=== PATIENT | male | born 1965 | race Caucasian/White ===

== ENCOUNTER 2016-07-16 09:05 | Emergency (ER) | payer OTHER ==
[~2016-07-16] VITALS: Ht 182.9 cm; Wt 103.6 kg
[~2016-07-16 09:05] MED LIST: CLX/20 PO; IBUP-1451 PO; OXYC1TAB3 PO
[2016-07-16 09:13] VITALS: TEMP 36.8; Ht 182.9 cm; Wt 103.6 kg
[2016-07-16] MEDS ORDERED: XYLOCAINE 1%/SOD BICARB 20 ML VIAL INFIL ONE (09:30)
[2016-07-16] MEDS ORDERED: BUPIVACAINE 0.5 % 5 MG/1 ML MPF 30ML VIAL INFIL ONE (09:30)
[2016-07-16] MEDS ORDERED: DIPHTHERIA/TETANUS/PERTUSSIS 0.5 ML SYR/VIAL IM. ONE (09:30)
--- NOTE | 2016-07-16 09:58 | DIAGNOSTIC IMAGING REPORT ---
LEFT FINGER(S) MIN 2 VIEWS ROUTINE CLINICAL HISTORY: left third finger injury, laceration trauma. Pain. COMPARISON: None. DISCUSSION: Soft tissue laceration adjacent to the distal phalanx. No evidence for bony involvement. Study specifically negative for fracture or dislocation. IMPRESSION: Soft tissue laceration adjacent to the distal phalanx left third finger. No acute bony abnormality. Electronically signed by: Crescencio Humphrey M.D. 07/16/2016 9:56 AM
--- NOTE | 2016-07-16 11:35 | EMERGENCY ROOM VISIT NOTE ---
ED Visit Note First contact with patient: 09:20 CHIEF COMPLAINT: Finger laceration HISTORY OF PRESENT ILLNESS: This 50-year-old male patient presents to the emergency department ambulatory after cutting the left third finger approximately 12 hours ago. The patient reports that he tripped over his dog and fell last night, striking the finger on a kerosene heater. The bleeding has not stopped. Denies weakness or numbness of the finger. He does report he cleaned the laceration with peroxide. The patient rates the pain as sharp and 8 /10. The patient denies any other injuries. The patient's Tetanus shot is not up to date. REVIEW OF SYSTEMS: A 6 system review of systems was completed with positives and pertinent negatives listed in the HPI. ALLERGIES: No known drug allergies MEDICATIONS: No chronic medications PMH: No significant past medical history. SOCIAL HISTORY: The patient lives locally with family. Nonsmoker. PHYSICAL EXAM: Vital Signs: Reviewed Nurse's notes, vital signs stable. GENERAL : This is a 50-year-old male, in no acute distress, well-developed, well- nourished. SKIN: There is a 3.5 cm long flap-like laceration on the medial aspect of the distal left third finger. The edges gape apart with traction. There is no foreign material in the wound and it looks clean. There is minimal bleeding. No deep structures such as tendons, bones, or significant blood vessels are seen in the base of the wound. Normal strength and movement of the finger. Capillary refill less than 2 seconds. Normal sensation to light and sharp touch. RADIOGRAPHIC FINDINGS: LEFT FINGER(S) MIN 2 VIEWS ROUTINE CLINICAL HISTORY: left third finger injury, laceration trauma. Pain. COMPARISON: None. DISCUSSION: Soft tissue laceration adjacent to the distal phalanx. No evidence for bony involvement. Study specifically negative for fracture or dislocation. IMPRESSION: Soft tissue laceration adjacent to the distal phalanx left third finger. No acute bony abnormality. EMERGENCY DEPARTMENT COURSE: I examined the patient. X-rays of finger was obtained and was unremarkable. Verbal consent was obtained to perform the procedure. Using sterile technique the wound was cleansed with Betadine. The area was sterilely draped. 7 ml of a 2-1 solution of 1% buffered lidocaine and 0.5% bupivacaine was used to anesthetize the laceration on the finger. Once the patient was anesthetized, the wound was copiously irrigated under pressure with sterile saline. The wound was explored and was as described above. The laceration was repaired using 11 simple interrupted 4-0 nylon sutures with the wound edges being well approximated. The patient tolerated the procedure well. Hemostasis was achieved. The area was cleaned with sterile saline and dressed with bacitracin ointment and bandage. The patient was given Td immunization. The patient will be placed on Keflex due to the delay in closure. He was given information for a hand surgeon to follow up with if he has any issues with healing. The patient was discharged home in good condition. DIAGNOSIS: Finger laceration Problem List Medical Problems: (1) SEBACEOUS CYST Status: Resolved Current/Historical Medications Scheduled Cephalexin Monohydrate (Keflex), 500 MG PO QID Allergies Coded Allergies: No Known Allergies (Unverified , 07/16/16) Vital Signs Date Time Temp Pulse Resp B/P Pulse Ox O2 Delivery O2 Flow Rate FiO2 07/16/16 11:51 77 17 135/65 95 07/16/16 10:39 90 17 148/103 94 Room Air 07/16/16 09:13 36.8 90 18 158/99 97 Room Air Medications Administered Medications (Trade) Dose Ordered Sig/Tristan Route Start Time Stop Time Status Last Admin Dose Admin Diphtheria/ Pertussis/Tetanus Vacc (Adacel Inj) 0.5 ml ONCE ONCE IM. 07/16/16 09:30 07/16/16 09:31 DC 07/16/16 10:41 0.5 ML Departure Information Impression Primary Impression: Finger laceration Dispostion Home / Self-Care Condition GOOD Prescriptions Cephalexin Monohydrate (Keflex) 500 Mg Cap 500 MG PO QID for 10 Days, #40 CAP Prov: Erica Torres ., TIFFANY 07/16/16 Referrals No Doctor, Assigned (PCP) Remberto Casanova MD Patient Instructions A Signature Page, [employer] Additional Instructions You have received 11 sutures on your finger. These sutures are NOT dissolvable and WILL need to be removed by a health care provider in 12-14 days. You can return to the Emergency Department or contact your Primary Care Provider to have the sutures removed. You were prescribed Keflex to be taken as prescribed. This is an antibiotic. All antibiotics have the potential to cause diarrhea. Stop this medication and contact a medical provider if you were to develop any significant adverse side effects including: wheezing, shortness of breath, passing out, vomiting, or a diffuse rash. Always take antibiotics as directed and COMPLETE the ENTIRE course regardless of the improvement of your symptoms. Proper wound care is essential for adequate wound healing and infection prevention. You can shower and clean the wound with soap and water. Do not scour over the wound, pat dry with a towel. Do not submerse the wound (i.e. bathe or dish wash) until the sutures have been removed. You can use an antibiotic ointment with a dressing over the wound for the next 3-4 days. After this time you may leave the wound dry and open to the air. If crust develops over the wound you can use a Q-tip to apply a 1:1 peroxide:water solution to clean the wound. Look for signs of infection of the wound including: increased pain, swelling, foul discharge, streaking, or increased temperature. If any of these are noticed you should return to the Emergency Department for further assessment and treatment. As with any laceration you may have received nerve damage to the surrounding tissues. This damage may or may not be permanent. You should keep the area covered with sunscreen for the first 6 months to 1 year when at risk for exposure to help minimize scarring. You can also use scar reducing creams or Vitamin E oil to help minimize scarring. For pain control, you can use the following [id number] medicines (if >12 yo): - Regular strength (325mg/tab) Tylenol (acetaminophen) 2 tabs every 4-6 hours as needed. Do not exceed 12 tablets in a 24 hour period. Avoid taking more than 4 grams (4000 mg) of Tylenol per day. This includes any other sources of acetaminophen you may take on a regular basis. - Regular strength (200 mg/tab) Advil (ibuprofen) 1-2 tabs every 4-6 hours as needed. Do not exceed a dose of 3200 mg per day. Follow-up with orthopedics if you have any numbness in her finger, weakness in the finger, or issues with healing. Return to the emergency department if your symptoms worsen despite treatment course outlined above.
[2016-07-16] MEDS ORDERED: CEPH500C PO (11:38)
[2016-07-16 11:51] VITALS: BP 135/65; PULSE 77; O2SAT 95
== END 2016-07-16 11:51 | disposition home or self-care (01) ==
LOC: C.EDB 09:07
DX: S61.213A Laceration without foreign body of left middle finger without damage to nail, initial encounter (principal); W01.0XXA Fall on same level from slipping, tripping and stumbling without subsequent striking against object, initial encounter; Z23 Encounter for immunization

== ENCOUNTER 2016-10-02 12:53 | Emergency (ER) | payer OTHER ==
[~2016-10-02] VITALS: Ht 182.9 cm; Wt 102.7 kg
[2016-10-02 12:59] VITALS: TEMP 36.5; Ht 182.9 cm; Wt 102.7 kg
[2016-10-02 13:03] VITALS: O2SAT 98
[2016-10-02] MEDS ORDERED: ASPIRIN 81 MG CHEW PO STA (13:28)
[2016-10-02] MEDS ORDERED: SODIUM CHLORIDE 0.9% 1000ML 1,000 ML IV STA (13:28)
[2016-10-02] MEDS ORDERED: NITROGLYCERIN 0.4 MG SL PER TAB CHARGE SL PRN (13:30)
[2016-10-02 13:45] LABS: BASO % 0.4 %; BASO ABS # 0.04 K/uL (0-0.2); COMPLETE YES; EOS % 0.6 %; IG% 0.2 %; LYMPH % 26.2 %; LYMPH ABS # 2.84 K/uL (1.2-3.4); MEAN CORPUSCULAR HEMOGLOBIN 30.4 pg (25-34); MEAN CORPUSCULAR HGB CONC 36.2 g/dl (32-36); MEAN PLATELET VOLUME 11.6 fL (7.4-10.4); MONO % 5.8 %; NEUT % 66.8 %; PLATELET COUNT 166 K/uL (130-400); WHITE BLOOD COUNT 10.84 K/uL (4.8-10.8)
[2016-10-02 13:53] LABS: BUN/CREATININE RATIO 20.9 (10-20); CALCIUM 8.6 mg/dl (8.5-10.1); CREATININE 0.85 mg/dl (0.60-1.40); POTASSIUM 3.7 mmol/L (3.5-5.1)
[2016-10-02 13:58] LABS: CKMB/CK RATIO 1.2 (0-3.0)
--- NOTE | 2016-10-02 14:25 | DIAGNOSTIC IMAGING REPORT ---
CHEST ONE VIEW PORTABLE HISTORY: Atypical CHEST PAIN COMPARISON: Chest 02/29/2016. FINDINGS: The heart is normal in size. The right lung is clear. No pleural effusions. No pneumothorax. Questionable 1.9 cm nodular density within the left midlung zone. IMPRESSION: Questionable 1.9 cm nodular density within the left midlung zone is likely due to the overlapping ribs. However, repeat PA and lateral views of the chest with oblique views is recommended for confirmation. Electronically signed by: Adam Gracia M.D. 10/02/2016 2:24 PM Dictated Date/Time: 10/02/2016 2:21 PM
[2016-10-02] MEDS ORDERED: OPTIRAY 320 IV PRN (14:45)
--- NOTE | 2016-10-02 15:06 | DIAGNOSTIC IMAGING REPORT ---
CT ANGIOGRAM OF THE CHEST CLINICAL HISTORY: Atypical chest pain. COMPARISON STUDY: Chest x-ray dated 10/02/2016. TECHNIQUE: Following the IV administration of 94 cc of Optiray 320, CT angiogram of the chest was performed from the upper abdomen to the thoracic inlet utilizing the pulmonary embolus protocol. Images are reviewed in the axial, sagittal, and coronal planes. 3-D MIPS images are created and assessed. IV contrast was administered without complication. CT DOSE: 490.37 mGy.cm FINDINGS: Thyroid: Imaged portions of the thyroid gland are normal in size and attenuation. Thoracic aorta: The thoracic aorta is normal in caliber and demonstrates bovine variant arch anatomy. No dissection is seen. Pulmonary vasculature: The pulmonary trunk is normal in caliber. There are no filling defects identified in main, lobar, or segmental pulmonary branches to suggest pulmonary embolus. Heart: The heart is normal in size and configuration, and without pericardial effusion. Lungs and pleural spaces: The lungs and pleural spaces are clear. The trachea and central airways are patent. No concerning pulmonary lesion is identified. Mediastinum: There is no mediastinal lymphadenopathy. Jacque: Clear. Axillae: There is no axillary lymphadenopathy. Upper abdomen: The liver is enlarged and steatotic. Partially visualized upper abdominal viscera is otherwise within normal limits. Skeletal structures: No lytic or blastic bony lesions are seen. IMPRESSION: 1. There is no evidence of pulmonary embolus in the main, lobar, or segmental pulmonary arteries. 2. The lungs are clear. 3. There is no left upper lobe pulmonary lesion identified as questioned by chest x-ray. The x-ray finding was likely artifactual. 4. Hepatic steatosis. Electronically signed by: Alphonso Watson M.D. 10/02/2016 3:04 PM Dictated Date/Time: 10/02/2016 2:57 PM
[2016-10-02 16:43] VITALS: BP 139/85; PULSE 71; O2SAT 97
--- NOTE | 2016-10-02 23:17 | EMERGENCY ROOM VISIT NOTE ---
ED Visit Note First contact with patient: 13:13 Chief Complaint: Chest pain. History of Present Illness: Mr. Kong is a 51 year-old white male who ambulates into the ED accompanied by female friend complaining of chest discomfort. Historically patient reports she has no history of coronary artery disease, no personal history of risk factors but does report his father had coronary artery disease and a stent place and at the age of 60. Additionally in reviewing his medical records he was found to be admitted to the hospital approximately 2 years ago for chest pain rule out [place]. He did follow-up and had a stress echocardiogram which she reports is normal. Patient reports a acute onset of pain discomfort that has been intermittent for the last 3 days. He describes his discomfort as a midsternal throbbing and achy sensations. He rates this discomfort a 4/10; he does currently report he is chest discomfort free. He has not identified any aggravating or alleviating factors related to this discomfort. He has not taken any medication for this discomfort prior to arrival at the hospital. He denies true radiation of pain but does report he has a numbness sensation along the left mandible, the proximal left arm and into the thoracic back behind the left scapula; he does currently report he has that numbness sensation in his neck, arm and subscapular area. Associated with his discomfort he reports intermittently he is short of breath and nauseated but has not vomited and he describes a "woosing " sensation that moves towards him. Patient denies fevers, sweats, skin eruptions, skin color changes, upper respiratory tract symptoms, wheezing, cough, orthopnea, dependent edema, previous clots, claudication, cramping, recent surgery/inactivity/extended travel, abdominal pain, nausea, vomiting, diarrhea, constipation, rectal bleeding, black/tarry stools, urinary symptoms, back/flank pain. Review of Systems: As noted above in history of present illness. All body systems were reviewed and found to be negative as noted above. Past Medical History: Kidney stones. Current Medications: Patient denies. Allergies to Medications: Patient denies. Social History: Patient is currently employed; he feels safe in his home environment; he admits to tobacco and alcohol use. Physical Examination: Vital Signs: Date Time Temp Pulse Resp B/P Pulse Ox O2 Delivery O2 Flow Rate FiO2 10/02/16 16:43 71 18 139/85 97 10/02/16 14:40 83 16 125/77 98 Room Air 10/02/16 13:44 72 16 136/89 97 10/02/16 13:05 90 10/02/16 13:03 98 Room Air 10/02/16 13:03 98 Room Air 10/02/16 12:59 36.5 92 18 165/99 98 Room Air GENERAL: 51-year-old male in mild distress due to symptoms, nontoxic-appearing, afebrile and hemodynamically stable. NEUROLOGICAL: Awake, alert and oriented to person, place and time. Answering questions appropriately and following commands. Normal gait. Good hand eye coordination. SKIN: Warm, dry and pink. No soft tissue eruptions or trauma noted. HEENT: Atraumatic and normocephalic. PERRLA. Sclera white and conjunctiva pink. Oral cavity moist and pink. Pharynx is nonerythematous or edematous. Speech normal. No lymphadenopathy. Trachea midline. No jugular venous distention. No carotid bruits. BACK: No tenderness over the bony spine. No CVA tenderness. THORAX: Lungs sounds are clear to auscultation and equal bilaterally with symmetrical chest wall. No wheezing, rales or rhonchi. No crepitus, tenderness , subcutaneous air or deformities noted. HEART: Regular rate and rhythm. No gallops, rubs or murmurs are appreciated. No lifts, heaves or thrills. PMI is not displaced. ABDOMEN: Flat, soft and nontender. Positive bowel sounds in all quadrants. No guarding, rigidity or organomegaly. EXTREMITIES: Moves all extremities well on command and with purpose. All distal neurovascular statuses are intact and equal bilaterally. No dependent edema or calf tenderness/cords. ED Course: Patient is assessed as noted above. Laboratory Testing: Test 10/02/16 13:15 10/02/16 13:48 10/02/16 16:00 Range/Units White Blood Count 10.84 4.8-10.8 K/uL Red Blood Count 5.00 4.7-6.1 M/uL Hemoglobin 15.2 14.0-18.0 g/dL Hematocrit 42.0 42-52 % Mean Corpuscular Volume 84.0 80-100 fL Mean Corpuscular Hemoglobin 30.4 25-34 pg Mean Corpuscular Hemoglobin Concent 36.2 32-36 g/dl Platelet Count 166 130-400 K/uL Mean Platelet Volume 11.6 7.4-10.4 fL Neutrophils (%) (Auto) 66.8 % Lymphocytes (%) (Auto) 26.2 % Monocytes (%) (Auto) 5.8 % Eosinophils (%) (Auto) 0.6 % Basophils (%) (Auto) 0.4 % Neutrophils # (Auto) 7.25 1.4-6.5 K/uL Lymphocytes # (Auto) 2.84 1.2-3.4 K/uL Monocytes # (Auto) 0.63 0.11-0.59 K/uL Eosinophils # (Auto) 0.06 0-0.5 K/uL Basophils # (Auto) 0.04 0-0.2 K/uL RDW Standard Deviation 39.4 36.4-46.3 fL RDW Coefficient of Variation 12.9 11.5-14.5 % Immature Granulocyte % (Auto) 0.2 % Immature Granulocyte # (Auto) 0.02 0.00-0.02 K/uL Sodium Level 141 136-145 mmol/L Potassium Level 3.7 3.5-5.1 mmol/L Chloride Level 108 98-107 mmol/L Carbon Dioxide Level 25 21-32 mmol/L Anion Gap 8.0 3-11 mmol/L Blood Urea Nitrogen 18 7-18 mg/dl Creatinine 0.85 0.60-1.40 mg/dl Est Creatinine Clear Calc Drug Dose 130.3 ml/min Estimated GFR () 118.6 Estimated GFR (Non- 102.3 BUN/Creatinine Ratio 20.9 10-20 Random Glucose 93 70-99 mg/dl Calcium Level 8.6 8.5-10.1 mg/dl Total Bilirubin 0.5 0.2-1 mg/dl Direct Bilirubin 0.1 0-0.2 mg/dl Aspartate Amino Transf (AST/SGOT) 22 15-37 U/L Alanine Aminotransferase (ALT/SGPT) 45 12-78 U/L Alkaline Phosphatase 74 45-117 U/L Total Creatine Kinase 355 39-308 U/L Creatine Kinase MB 4.3 0.5-3.6 ng/ml Creatine Kinase MB Ratio 1.2 0-3.0 Total Protein 7.6 6.4-8.2 gm/dl Albumin 3.9 3.4-5.0 gm/dl Lipase 115 73-393 U/L Bedside Troponin I 0.000 0.000 0-0.045 ng/ml Chest X-Rays: Were read by myself and the radiologist showing no acute infiltrates, effusions or pneumothorax. Normal heart silhouette and bony anatomy. Radiologist does note a questionable 1.9 cm nodule density within the left mid lung zone of questionable etiology. CTA Chest: Was reviewed by myself and read by the radiologist showing no evidence of light, clear lungs, the nodular density that was question in the chest x-ray was not present, the thoracic aorta was normal-appearing and demonstrates no dissection but did have a bovine variant arch anatomy. EK: Was read by myself and reviewed with Dr. Dai; shows normal sinus rhythm with ventricular rate of 92 bpm. Normal axis, intervals and complexes. No acute ST changes indicating ischemia, injury or infarction. This was compared to previous from 02/29/2016 in no acute changes were noted. 1550: Was read by myself and reviewed with Dr. Dai; shows normal sinus rhythm with ventricular rate of 70 bpm. Normal axis, intervals and complexes. No acute ST changes indicating ischemia, injury or infarction. This was compared to EKG from earlier today in no acute changes were noted. Patient was hydrated with normal saline and given 324 mg of aspirin by mouth and a 0.4 mg sublingual nitroglycerin trial; he reports these medications made him feel more relaxed but did not take away any of his discomforts. Patient was reassessed multiple times during his stay in the emergency department. Patient's case was reviewed with Dr. Dai; we agreed on diagnostic approach, treatment, disposition and plan. Patient's case was consulted with Dr. Hayes, [facility] cardiology; he recommended office follow-up and did not feel the patient needed to be brought into the hospital for observation/admission. Patient was educated about tonight's findings and instructed on his treatment plan; he verbalizes understanding and agreement with this plan. Clinical Impression: Noncardiac chest discomfort. Decision-Making: Initially my differential diagnosis I considered acute coronary syndrome, angina, hypertensive crisis, palpitations, pneumothorax, pneumonia, pulmonary embolism, and other causes. Disposition: Patient discharged home in stable condition; prior to departure he was reassessed and subjectively reported he was feeling better and was still experiencing the whooshing sensation. Plan: Patient was encouraged to continue his current medications. Patient was encouraged to use 81 mg of aspirin per day until followed up with cardiology. Patient was encouraged to follow-up with his primary care provider and [facility] cardiology. Patient was encouraged to return ED for worsening chest discomfort or any new/ concerning symptoms.
== END 2016-10-02 16:44 | disposition home or self-care (01) ==
LOC: C.EDB 12:54 → C.EDC 16:44
DX: R07.9 Chest pain, unspecified (principal); F17.200 Nicotine dependence, unspecified, uncomplicated; Z87.442 Personal history of urinary calculi

== ENCOUNTER 2018-03-05 23:35 | Emergency (ER) | payer OTHER ==
[~2018-03-05] VITALS: Ht 182.9 cm; Wt 90.0 kg
[~2018-03-05 23:35] MED LIST changes: -CLX/20 PO; +CPR500 PO; -IBUP-1451 PO; +LCTX PO; -OXYC1TAB3 PO
[2018-03-05 23:38] VITALS: Ht 182.9 cm; Wt 90.0 kg
[2018-03-05] MEDS ORDERED: SODIUM CHLORIDE 0.9% 1000ML 1,000 ML IV ONE (23:47)
--- NOTE | 2018-03-05 23:52 | EMERGENCY ROOM VISIT NOTE ---
History Report prepared by Natayl: Gene Bueno Under the Supervision of: Dr. Ben Mejia M.D. First contact with patient: 23:44 Chief Complaint: FEVER Stated Complaint: HIGH FEVER, History of Present Illness The patient is a 52 year old male who presents to the Emergency Room with complaints of an intermittent fever beginning yesterday. The patient states he had a Whipple surgery at [facility] on the 16 of February, and his surgery was 6 hours in length. He reports he developed chills and severe shivers three days ago. The patient notes he shakes too much to take his medication. He states it has happened daily since, and it resolves on its own. The patient report he had a low grade fever yesterday and had a negative urine culture from Dr. Chauhan's office. He notes his fever lizzeth to 104.3 today. The patient states he takes oxycodone and Tylenol every morning for pain. He notes he also had abdominal discomfort. Source of History: patient Onset: yesterday Symptom Intensity: 104.3 Quality: other (fever) Timing: intermittent Modifying Factors (Relieving): tylenol Associated Symptoms: + chills (and shivers), + abdominal pain Review of Systems See HPI for pertinent positives & negatives. A total of 10 systems reviewed and were otherwise negative. Past Medical & Surgical Surgical Problems: (1) History of pancreatectomy Family History Cancer Heart disease Social History Smoking Status: Current Every Day Smoker Alcohol Use: other Drug Use: none Marital Status: Housing Status: lives with family Occupation Status: employed Current/Historical Medications Scheduled Docusate Sodium (Colace), 100 MG PO BID Enoxaparin (Lovenox), Unknown Dose SQ QPM Scheduled PRN Ondansetron Hcl (Zofran), 8 MG PO Q8 PRN for Nausea Oxycodone Ir (Roxicodone Ir), 5 MG PO Q6H PRN for Pain Simethicone (Simethicone), 180 MG PO TID PRN for GI Upset Miscellaneous Medications [Note: ] Allergies Coded Allergies: No Known Allergies (Unverified , 01/21/18) Physical Exam Vital Signs Date Time Temp Pulse Resp B/P (MAP) Pulse Ox O2 Delivery O2 Flow Rate FiO2 03/06/18 04:53 68 16 101/63 96 03/06/18 04:25 70 14 99/63 98 03/06/18 04:15 70 14 86/56 95 Room Air 03/06/18 03:45 78 16 106/65 98 Room Air 03/06/18 03:15 36.7 03/06/18 03:10 78 18 109/66 96 Room Air 03/06/18 02:31 97 16 105/62 98 Room Air 03/06/18 01:21 79 18 107/62 99 Room Air 03/06/18 00:56 37.1 86 16 122/63 97 Room Air 03/06/18 00:10 101/65 03/06/18 00:06 98 Room Air 03/05/18 23:38 37.8 118 22 109/66 96 Room Air Physical Exam GENERAL: Awake, alert, well-appearing, in no acute distress. Diaphoretic on examination. HENT: Normocephalic, atraumatic. Oropharynx unremarkable. EYES: Normal conjunctiva. Sclera non-icteric. NECK: Supple. No nuchal rigidity. FROM. No JVD. RESPIRATORY: Clear to auscultation. CARDIAC: Regular rate, normal rhythm. Extremities warm and well perfused. Pulses equal. ABDOMEN: Soft, non-distended. Tenderness to palpation. No rebound or guarding. No masses. Surgical scar down the abdomen. No evidence of infection. RECTAL: Deferred. MUSCULOSKELETAL: Chest examination reveals no tenderness. The back is symmetrical on inspection without obvious abnormality. There is no CVA tenderness to palpation. No joint edema. LOWER EXTREMITIES: Calves are equal size bilaterally and non-tender. No edema. No discoloration. NEURO: Normal sensorium. No sensory or motor deficits noted. SKIN: No rash or jaundice noted. Medical Decision & Procedures ER Provider Diagnostic Interpretation: X-ray results as stated below per interpretation by [facility] One view of chest: No pneumonia, pneumothorax, or congestion. Radiology results as stated below per my review and [facility] radiologist interpretation: CT ABDOMEN & PELVIS With Contrast: History of recent Whipple procedure. Status post Whipple procedure. Fat stranding and edema surrounding the pancreas and gallbladder fossa and distal stomach is within normal limits for postoperative changes. Small amount of fluid and extraluminal foci of gas at the pancreaticojejunostomy could indicate anastomotic leak (image 33). Small fluid collection in the lesser sac measuring 6.4 x 3.2 cm could represent postoperative seroma/hematoma or pseudocyst. Abscess cannot be excluded. No bowel obstruction. Recommend surgical consultation. Improved biliary dilatation. Wall thickening of the choledochojejunostomy likely indicates normal postoperative changes. Tiny hypodensity in the left hepatic lobe (image 15) is stable and nonspecific. Right nephrolithiasis. No hydronephrosis. Radiologist: Chayo Palencia MD Study ready at 01:42 and initial results transmitted at 02:19 Laboratory Results 03/06/18 00:04 Red Blood Count 3.71, Mean Corpuscular Volume 82.5, Mean Corpuscular Hemoglobin 28.3, Mean Corpuscular Hemoglobin Concent 34.3, Mean Platelet Volume 10.0, Neutrophils (%) (Auto) 84.3, Lymphocytes (%) (Auto) 6.8, Monocytes (%) (Auto) 8.3, Eosinophils (%) (Auto) 0.1, Basophils (%) (Auto) 0.2, Neutrophils # (Auto) 11.22, Lymphocytes # (Auto) 0.90, Monocytes # (Auto) 1.11, Eosinophils # (Auto) 0.01, Basophils # (Auto) 0.03 03/06/18 00:04 Test 03/06/18 00:04 03/06/18 01:10 03/06/18 03:40 White Blood Count 13.31 K/uL (4.8-10.8) Red Blood Count 3.71 M/uL (4.7-6.1) Hemoglobin 10.5 g/dL (14.0-18.0) Hematocrit 30.6 % (42-52) Mean Corpuscular Volume 82.5 fL (80-100) Mean Corpuscular Hemoglobin 28.3 pg (25-34) Mean Corpuscular Hemoglobin Concent 34.3 g/dl (32-36) Platelet Count 199 K/uL (130-400) Mean Platelet Volume 10.0 fL (7.4-10.4) Neutrophils (%) (Auto) 84.3 % Lymphocytes (%) (Auto) 6.8 % Monocytes (%) (Auto) 8.3 % Eosinophils (%) (Auto) 0.1 % Basophils (%) (Auto) 0.2 % Neutrophils # (Auto) 11.22 K/uL (1.4-6.5) Lymphocytes # (Auto) 0.90 K/uL (1.2-3.4) Monocytes # (Auto) 1.11 K/uL (0.11-0.59) Eosinophils # (Auto) 0.01 K/uL (0-0.5) Basophils # (Auto) 0.03 K/uL (0-0.2) RDW Standard Deviation 42.5 fL (36.4-46.3) RDW Coefficient of Variation 13.9 % (11.5-14.5) Immature Granulocyte % (Auto) 0.3 % Immature Granulocyte # (Auto) 0.04 K/uL (0.00-0.02) Red Blood Cell Morphology Unremarkable Prothrombin Time 11.4 SECONDS (9.0-12.0) Prothromb Time International Ratio 1.1 (0.9-1.1) Activated Partial Thromboplast Time 26.7 SECONDS (21.0-31.0) Partial Thromboplastin Ratio 1.0 Anion Gap 11.0 mmol/L (3-11) Est Creatinine Clear Calc Drug Dose 127.7 ml/min Estimated GFR () 123.3 Estimated GFR (Non- 106.4 BUN/Creatinine Ratio 15.5 (10-20) Calcium Level 8.1 mg/dl (8.5-10.1) Total Bilirubin 0.4 mg/dl (0.2-1) Aspartate Amino Transf (AST/SGOT) 26 U/L (15-37) Alanine Aminotransferase (ALT/SGPT) 35 U/L (12-78) Alkaline Phosphatase 101 U/L (45-117) Total Creatine Kinase 42 U/L (39-308) Creatine Kinase MB < 1.0 ng/ml (0.5-3.6) Creatine Kinase MB Ratio (0-3.0) Troponin I < 0.015 ng/ml (0-0.045) Total Protein 6.6 gm/dl (6.4-8.2) Albumin 2.6 gm/dl (3.4-5.0) Globulin 4.0 gm/dl (2.5-4.0) Albumin/Globulin Ratio 0.7 (0.9-2) Urine Color COLORLESS Urine Appearance CLEAR (CLEAR) Urine pH 7.0 (4.5-7.5) Urine Specific [place] <= 1.005 (1.000-1.030) Urine Protein NEG (NEG) Urine Glucose (UA) NEG (NEG) Urine Ketones NEG (NEG) Urine Occult Blood NEG (NEG) Urine Nitrite NEG (NEG) Urine Bilirubin NEG (NEG) Urine Urobilinogen NEG (NEG) Urine Leukocyte Esterase NEG (NEG) Bedside Lactic Acid Venous 0.48 mmol/L (0.90-1.70) Labs reviewed by ED physician. Medications Administered Medications (Trade) Dose Ordered Sig/Tristan Route Start Time Stop Time Status Last Admin Dose Admin Sodium Chloride 1,000 ml @ 999 mls/hr Q1H1M ONCE IV 03/05/18 23:47 03/06/18 00:47 DC 03/05/18 23:47 999 MLS/HR Hydromorphone HCl (Dilaudid Inj) 1 mg NOW STAT IV 03/06/18 00:32 03/06/18 00:36 DC 03/06/18 00:49 1 MG Ondansetron HCl (Zofran Inj) 4 mg NOW STAT IV 03/06/18 00:32 03/06/18 00:36 DC 03/06/18 00:50 4 MG Acetaminophen (Tylenol Tab) 1,000 mg NOW STAT PO 03/06/18 00:32 03/06/18 00:36 DC 03/06/18 00:32 1,000 MG Sodium Chloride 1,000 ml @ 999 mls/hr Q1H1M STAT IV 03/06/18 00:32 03/06/18 01:32 DC 03/06/18 00:49 999 MLS/HR Piperacillin Sod/ Tazobactam Sod (Zosyn Iv) 4.5 gm NOW STAT IV 03/06/18 00:32 03/06/18 00:37 DC 03/06/18 00:50 4.5 GM Levofloxacin (Levaquin / D5W) 750 mg NOW ONCE IV 03/06/18 00:45 03/06/18 00:46 DC 03/06/18 00:49 750 MG Sodium Chloride 250 ml @ 999 mls/hr Q16M STAT IV 03/06/18 00:49 03/06/18 01:04 DC 03/06/18 00:49 999 MLS/HR Sodium Chloride 500 ml @ 999 mls/hr Q31M STAT IV 03/06/18 00:49 03/06/18 01:19 DC 03/06/18 00:49 999 MLS/HR Vancomycin HCl (Vancomycin 1gm Ed/Asu Omnicell) 1 gm STK-MED ONCE .ROUTE 03/06/18 01:15 03/06/18 01:16 DC 03/06/18 01:19 1 GM Potassium Chloride (Klor-Con M10) 40 meq STK-MED ONCE .ROUTE 03/06/18 01:17 03/06/18 01:18 DC 03/06/18 01:18 40 MEQ Potassium Chloride (Klor-Con M10) 40 meq NOW STAT PO 03/06/18 01:52 03/06/18 01:53 DC 03/06/18 01:52 40 MEQ Sodium Chloride 1,000 ml @ 125 mls/hr Q8H STAT IV 03/06/18 03:03 03/06/18 06:01 DC 03/06/18 03:03 125 MLS/HR Hydromorphone HCl (Dilaudid Inj) 1 mg NOW STAT IV 03/06/18 03:17 03/06/18 03:18 DC 03/06/18 03:45 1 MG ECG Per My Interpretation Indication: abdominal pain Rate (beats per minute): 100 Rhythm: normal sinus Findings: other (No ST elevation or depression.) ED Course Differential diagnosis: Etiologies such as sepsis, UTI, pneumonia, metabolic, electrolyte abnormalities , cardiac sources, intracerebral event, toxicologic, neurologic, as well as others were entertained. Medical Decision [id number]: Past medical records reviewed. The patient was evaluated in room B05. A complete history and physical examination was performed. 2347: Ordered Sodium Chloride 1000 ml @ 999 mls/hr 0032: Ordered Vancomycin HCl 1000mg/Sodium Chloride 270 ml @ 125 mls/hr IV, Zosyn 4.5gm IV, Sodium Chloride 1000 ml @ 999 mls/hr, Tylenol 1000mg PO, Zofran 4mg IV, Dilaudid 1mg IV 0045: Ordered Vancomycin 1ea N/A, Levofloxacin 750mg IV 0049: Ordered Sodium Chloride 250 ml @ 999 mls/hr, Sodium Chloride 250 ml @ 999 mls/hr 0115: Ordered Vancomycin HCl 1gm 0117: Ordered Potassium Chloride 4 meq PO 0152: Ordered Potassium Chloride 40meq PO 0224: Upon reexamination the patient is resting. I discussed results and treatment plan with the patient. He verbalizes agreement and understanding. The patient will be transferred for further management. 0301: I discussed the patient's case with Dr. Best, [facility] and [facility]. The patient has been accepted to [facility] as a transfer patient for further evaluation. 0303: Ordered Sodium Chloride 1000 ml @ 125 mls/hr[] 0317: Ordered Dilaudid 1mg IV This is a 52-year-old male who presents emergency department during a period of high volume and high acuity complaining of abdominal pain fevers chills diaphoresis. Upon arrival to the emergency department the patient is septic. Sepsis alert was immediately initiated. The patient was given 30 mL's per kilogram of fluid and started on broad-spectrum antibiotics. The patient recently had a Whipple procedure performed and was sent for CAT scan of the abdomen pelvis. This was concerning for perhaps an abscess that may be causing the patient's sepsis. Because of this I did discuss with the on-call surgeon in [place] who asked that the patient be transferred to the ICU. Patient and family were in agreement with the treatment plan. Medication Reconcilliation Current Medication List: was personally reviewed by me Blood Pressure Screening Patient's blood pressure: Normal blood pressure Blood pressure disposition: Did not require urgent referral Consults Time Called: 253 Consulting Physician: Dr. Best, [facility] and [facility] Returned Call: 0301 I discussed the patient's case with Dr. Best, [facility]. The patient has been accepted to [facility] as a transfer patient for further evaluation. Impression Primary Impression: Sepsis Critical Care I have personally spent greater than 90 minutes of critical care time in the direct management of this patient. This includes bedside care, interpretation of diagnostic studies, and testing, discussion with consultants, patient, and family members, and other required patient management activities. This 90 minutes is in excess of all separately billable procedures. Scribe Attestation The scribe's documentation has been prepared under my direction and personally reviewed by me in its entirety. I confirm that the note above accurately reflects all work, treatment, procedures, and medical decision making performed by me. Departure Information Dispostion Transfer Acute Care Facility Referrals No Doctor, Assigned (PCP) Patient Instructions [facility] Problem Qualifiers Primary Impression: Sepsis Sepsis type: sepsis due to unspecified organism Qualified Codes: A41.9 - Sepsis, unspecified organism
[2018-03-06 00:06] VITALS: O2SAT 98
[2018-03-06] MEDS ORDERED: OPTIRAY 320 IV PRN (00:15)
[2018-03-06 00:18] LABS: HEMATOCRIT 30.6 % (42-52); HEMOGLOBIN 10.5 g/dL (14.0-18.0); MEAN CELL VOLUME 82.5 fL (80-100); MEAN CORPUSCULAR HEMOGLOBIN 28.3 pg (25-34); MEAN CORPUSCULAR HGB CONC 34.3 g/dl (32-36); PLATELET COUNT 199 K/uL (130-400); RED CELL DISTRIBUTION WIDTH CV 13.9 % (11.5-14.5); RED CELL DISTRIBUTION WIDTH SD 42.5 fL (36.4-46.3); WHITE BLOOD COUNT 13.31 K/uL (4.8-10.8)
[2018-03-06 00:27] LABS: INR 1.1 (0.9-1.1); PTT PATIENT 26.7 SECONDS (21.0-31.0)
[2018-03-06] MEDS ORDERED: VANCOMYCIN IV 1,000 MG in SODIUM CHLORIDE 0.9% 250ML 250 ML IV STA (00:32)
[2018-03-06] MEDS ORDERED: HYDROmorphone INJ 1 MG/ML SYR IV STA ×2 (00:32→03:17)
[2018-03-06] MEDS ORDERED: ONDANSETRON INJ 2 MG/ML 2 ML VIAL IV STA (00:32)
[2018-03-06] MEDS ORDERED: SODIUM CHLORIDE 0.9% 1000ML 1,000 ML IV STA ×2 (00:32→03:03)
[2018-03-06] MEDS ORDERED: PIPERACILLIN/TAZOBACTAM 4.5 GM/100ML D5W IV STA (00:32)
[2018-03-06] MEDS ORDERED: ACETAMINOPHEN 500 MG TAB PO STA (00:32)
[2018-03-06 00:38] LABS: BASO % 0.2 %; BASO ABS # 0.03 K/uL (0-0.2); EOS % 0.1 %; EOS ABS # 0.01 K/uL (0-0.5); IG# 0.04 K/uL (0.00-0.02); LYMPH % 6.8 %; MONO % 8.3 %; MONO ABS # 1.11 K/uL (0.11-0.59); NEUT % 84.3 %; NEUT ABS # 11.22 K/uL (1.4-6.5)
[2018-03-06] MEDS ORDERED: VANCOMYCIN CONSULT ACTIVE PRN (00:45)
[2018-03-06] MEDS ORDERED: LEVAQUIN 750MG / 150ML D5W IV ONE (00:45)
[2018-03-06 00:47] LABS: ALBUMIN 2.6 gm/dl (3.4-5.0); ALKALINE PHOSPHATASE 101 U/L (45-117); ALT/SGPT 35 U/L (12-78); AST/SGOT 26 U/L (15-37); BLOOD UREA NITROGEN 12 mg/dl (7-18); CALCIUM 8.1 mg/dl (8.5-10.1); CARBON DIOXIDE 23 mmol/L (21-32); CKMB < 1.0 ng/ml (0.5-3.6); CREATININE 0.76 mg/dl (0.60-1.40); GLUCOSE 141 mg/dl (70-99); POTASSIUM 3.1 mmol/L (3.5-5.1); SODIUM 134 mmol/L (136-145); TOTAL PROTEIN 6.6 gm/dl (6.4-8.2)
[2018-03-06] MEDS ORDERED: SODIUM CHLORIDE 0.9% 250ML 250 ML IV STA (00:49)
[2018-03-06] MEDS ORDERED: SODIUM CHLORIDE 0.9% 500ML 500 ML IV STA (00:49)
[2018-03-06] MEDS ORDERED: POTASSIUM CHLORIDE 20 MEQ TABCR PO STA (00:49)
[2018-03-06] MEDS ORDERED: VANCOMYCIN 1GM ED/ASU OMNICELL ONE (01:15)
[2018-03-06] MEDS ORDERED: POTASSIUM CHLORIDE 10 MEQ TABCR ONE (01:17)
[2018-03-06] MEDS ORDERED: POTASSIUM CHLORIDE 10 MEQ TABCR PO STA (01:52)
[2018-03-06] MEDS ORDERED: ENOX60IN SQ (02:28)
[2018-03-06] MEDS ORDERED: ONDA-170 PO (02:29)
[2018-03-06] MEDS ORDERED: DOCU-94 PO (02:30)
[2018-03-06] MEDS ORDERED: SIME1CAP11 PO (02:31)
[2018-03-06] MEDS ORDERED: NOTE: (02:32)
[2018-03-06] MEDS ORDERED: OXYC-90 PO (02:32)
[2018-03-06 03:15] VITALS: TEMP 36.7
[2018-03-06 04:53] VITALS: BP 101/63; PULSE 68; O2SAT 96
--- NOTE | 2018-03-06 07:03 | DIAGNOSTIC IMAGING REPORT ---
CHEST ONE VIEW PORTABLE CLINICAL HISTORY: 52 years-old Male presenting with Sepsis. TECHNIQUE: Portable upright AP view of the chest was obtained. COMPARISON: 01/21/2018. FINDINGS: Atherosclerosis of the aortic arch. Cardiac silhouette normal in size. Lungs and pleural spaces clear. Degenerative changes of the thoracic spine. Upper abdomen normal. IMPRESSION: 1. No acute cardiopulmonary disease. Electronically signed by: Josep Brewer M.D. 03/06/2018 7:01 AM Dictated Date/Time: 03/06/2018 7:00 AM
--- NOTE | 2018-03-06 08:13 | DIAGNOSTIC IMAGING REPORT ---
CT SCAN OF THE ABDOMEN AND PELVIS WITH IV CONTRAST CLINICAL HISTORY: Sepsis. COMPARISON STUDY: Abdominal CT dated 01/21/2018. TECHNIQUE: Following the IV administration of 117 cc of Optiray 320, CT scan of the abdomen and pelvis is performed from the lung bases to the proximal femora. Images are reviewed in the axial, sagittal, and coronal planes. IV contrast was administered without complication. A dose lowering technique was utilized adhering to the principles of ALARA. CT DOSE: 689.81 mGy.cm FINDINGS: Lung bases: The heart is normal in size and without pericardial effusion. The lung bases are clear. Liver: The contrast-enhanced liver is mildly enlarged, measuring 18.5 cm in length. The liver demonstrates diffusely diminished attenuation consistent with hepatic steatosis. There is no intrahepatic biliary ductal dilatation. The hepatic veins and portal veins are patent. There is thrombus identified within the superior mesenteric vein at the kishan splenic confluence seen on axial image #157. Mild periportal edema is noted. A subcentimeter hypodensity in the left lobe of liver seen on image #72 is unchanged. This likely represents a tiny cyst but is too small for definitive characterization. Gallbladder: The gallbladder surgically absent, with clips noted in the gallbladder fossa. This is new from 01/21/2018. There is stranding identified in the gallbladder fossa with trace fluid. No organized fluid collection is seen. There is mild wall thickening of the common bile duct. Spleen: The spleen is enlarged, measuring 15 cm in length. Pancreas: The pancreas is moderately atrophic. The pancreatic head is surgically absent consistent with a Whipple procedure. A stent is noted in the mid to distal pancreatic duct, and the pancreatic duct is normal in caliber. Nonspecific stranding and trace fluid is identified around the pancreatic head abdomen the hepatic hilum. Adrenal glands: Unremarkable. Kidneys: The contrast enhanced kidneys are normal in size and without hydronephrosis. The kidneys enhance heterogeneously and there is nonspecific bilateral perinephric stranding. There is a 10 mm exophytic lesion arising from the interpolar left kidney seen on image #210. This does not meet criteria for a simple cyst. A small enhancing lesion is not excluded. There is a 4 mm nonobstructing calculus identified in the right kidney. Abdominal vasculature: The abdominal aorta is normal in course and caliber noting mild to moderate atherosclerotic calcification. Stomach and bowel: There are postoperative changes from gastroduodenal resection with gastrojejunostomy as well as pancreaticojejunostomy and hepaticojejunostomy. This is consistent with a Whipple procedure, and represents a change from 01/21/2018. There is mild wall thickening of the jejunal loops at the pancreaticojejunostomy and hepaticojejunostomy. There is mild to moderate colonic fecal retention. No bowel obstruction is seen. The appendix is well-visualized and normal. Peritoneum: Tiny foci of intraperitoneal free air are noted in the upper abdomen. Trace abdominopelvic ascites is noted. There is an approximately 6 x 2.5 cm collection identified in the lesser sac posterior to the distal stomach seen on image #194. There is a midline surgical scar. Lymphadenopathy: Mildly enlarged peripancreatic and gastrohepatic nodes measure up to 12 mm in short axis. A portacaval node measures 15 mm short axis. An aortocaval node on image #186 measures 11 mm in short axis. There is no Iliac chain, pelvic sidewall, or inguinal adenopathy. Pelvic viscera: There is median lobe hypertrophy of the prostate gland. The bladder wall appears mildly thickened and hyperemic. Faint pericystic stranding is noted. Skeletal structures: No lytic or blastic lesions are seen. IMPRESSION: 1. There are postoperative changes from an interval Whipple procedure and cholecystectomy as compared to the 01/21/2018 examination. 2. A pancreatic stent is in place. The pancreatic duct is normal in caliber. 3. There is approximately 6 x 2.5 cm collection identified in the lesser sac posterior to the distal stomach. Additionally, there are small foci of adjacent intraperitoneal free air. The fluid collection is indeterminant, and could represent a seroma/hematoma versus abscess. Anastomotic leakage is not excluded. 4. There is thrombus within the superior mesenteric vein below the portosplenic confluence. The main portal vein and intrahepatic portal veins are patent. 6. There is mild wall thickening of the common bile duct, as well as wall thickening and of the pancreaticojejunostomy and hepaticojejunostomy with surrounding inflammatory stranding. This is nonspecific and may be simply be related to recent surgery. 7. There is trace abdominopelvic ascites. 8. Mildly enlarged upper abdominal and upper retroperitoneal lymph nodes are nonspecific and may be on a reactive basis. Attention at follow-up is recommended. 9. The bladder wall appears mildly thickened and hyperemic. Faint pericystic stranding is noted. Additionally, the kidneys enhance heterogeneously and there is mild nonspecific perinephric stranding. Correlate clinically and with urinalysis for evidence of urinary tract infection. 10. There is a 10 mm exophytic lesion arising from the left kidney which does not meet criteria for a simple cyst and may demonstrate small foci of enhancement. Renal cell carcinoma is not excluded. Follow-up with a nonemergent MRI of the kidneys is recommended for further assessment. 11. Nonobstructing right renal calculus. 12. Hepatomegaly and hepatic steatosis. 13. Splenomegaly. 14. Additional findings as above. Electronically signed by: Alphonso Watson M.D. 03/06/2018 8:12 AM Dictated Date/Time: 03/06/2018 7:15 AM
== END 2018-03-06 04:53 | disposition short-term general hospital (02) ==
LOC: C.EDB 23:36
DX: A41.9 Sepsis, unspecified organism (principal); F17.200 Nicotine dependence, unspecified, uncomplicated; Z79.01 Long term (current) use of anticoagulants

== ENCOUNTER 2021-01-23 10:41 | Observation (INO) ==
[2021-01-23] MEDS ORDERED: SODIUM CHLORIDE 0.9% 1000ML 1,000 ML IV ONE (11:25)
--- NOTE | 2021-01-23 11:48 | XRay Report ---
XR chest 1V portable HISTORY: 55 years-old Male epigastric pain acute epigastric abdominal pain with acute atypical chest pain COMPARISON: Acute abdominal series radiographs 09/27/2018 TECHNIQUE: Portable AP view of the chest FINDINGS: The cardiomediastinal and hilar silhouettes are within normal limits. No pneumothorax, pleural effusi on, airspace consolidation or overt pulmonary edema. The bones of the chest appear grossly intact. Ch olecystectomy clips. IMPRESSION: No acute process. ACT 112: Negative or not required by law. The above report was generated using voice recognition software. It may contain grammatical, syntax o r spelling errors. Electronically signed by: James Ghotra M.D. 01/23/2021 11:47 AM
[2021-01-23 12:08] LABS: Appearance Urine Cloudy (Clear); Bilirubin Urine Negative (Negative); Blood Urine 2+ (Negative); Color Urine Red; Glucose Urine UA Negative (Negative); Ketones Urine Trace (Negative); Leukocyte Esterase Urine Negative (Negative); Nitrite Urine Negative (Negative); Protein Urine 2+ (Negative); Urobilinogen Urine Negative (Negative); pH Urine 6.5 (4.5-7.5)
[2021-01-23 12:19] LABS: Bacteria Urine Negative (Negative); Epithelial Cell Urine 0-5 /lpf (0-5); Hyaline Casts Urine 0-5 /lpf (0-5); RBC Urine >30 /hpf (0-4); WBC Urine 0-5 /hpf (0-5)
--- NOTE | 2021-01-23 12:22 | Emergency Department Note ---
History of Present Illness General Chief complaint: Hematuria Stated complaint: INCISION PAIN, BLACK URINE, BLOOD Time Seen by Provider: 01/23/21 11:19 Source: patient Mode of arrival: ambulatory Limitations: no limitations History of Present Illness Provider complaint: abdominal pain, dark stool, hematuria x1-2 weeks Maximum Pain Intensity: 10 This 55-year-old male patient with symptomatic past medical history of pancreatic cancer with Whipple procedure completed "2 years ago" presents to the emergency department today for evaluation of abdominal pain, dark stools, and hematuria. The patient states the abdominal pain is chronic and not really unchanged from his baseline pain. He states the dark stools began about 2 weeks ago and have been improving. He states that hematuria is new today, but he had been advised by his oncologist in the past to come to the emergency department if he develops the symptoms. Patient denies any associated fever or recent illness. He states he believes he has lost 6 to 7 pounds in the past 2 weeks. He does report a decreased appetite and fluid intake in that timeframe. Patient denies any nausea or vomiting. No diarrhea or constipation. No headache, dizziness, dyspnea, chest pain, altered mental status, or other concerning symptoms. He does rate his diffuse abdominal pain a 10/10 and describes it as aching. Home Medications Medication Instructions Recorded Confirmed Type gabapentin [Neurontin] 300 mg PO TID 01/23/21 01/23/21 History hydrocodone-acetaminophen 1 tab PO DAILY 01/23/21 01/23/21 History [id number] [Creon] 1 cap PO DIRECTED 01/23/21 01/23/21 History sucralfate [Carafate] 1 g PO TID 01/23/21 01/23/21 History tamsulosin [Flomax] 0.4 mg PO QAM 01/23/21 01/23/21 History Allergies Allergy/AdvReac Type Severity Reaction Status Date / Time No Known Allergies Allergy Verified 01/23/21 13:46 Past Med/Surg History Medical History Pancreatic cancer Social History Smoking Status: Current every day smoker Tobacco Type: Cigarettes Preferred Language: Upper Sorbian Feels Safe at Home: Yes Review of Systems A total of 10 systems reviewed and were otherwise negative Physical Exam Vital Signs Vital Signs - 24 hr 01/23/21 10:56 01/23/21 11:48 01/23/21 14:14 Temperature 36.6 C Temperature Source Temporal Artery Scan Pulse Rate 79 68 Pulse Rate [Finger] 65 54 L Pulse Rhythm [Finger] Regular Pulse Strength [Finger] Normal Respiratory Rate 18 14 14 Respiratory Effort / Characteristics Non-Labored Respiratory Depth Normal Respiratory Pattern Regular Blood Pressure 137/84 Blood Pressure [Right Arm] 151/84 H 160/83 H Blood Pressure Mean 101 Blood Pressure Mean [Right Arm] 106 108 Blood Pressure Position [Right Arm] Lying Pulse Oximetry 98 99 98 Oxygen Delivery Method Room Air Room Air Sepsis Recent Fever Within 48 Hours No Sepsis New/Unexplained Change in Mental Status N/A Sepsis Action Taken by Nursing No Action Required 01/23/21 15:49 Temperature Temperature Source Pulse Rate Pulse Rate [Finger] 54 L Pulse Rhythm [Finger] Pulse Strength [Finger] Respiratory Rate 16 Respiratory Effort / Characteristics Respiratory Depth Respiratory Pattern Blood Pressure Blood Pressure [Right Arm] 130/79 Blood Pressure Mean Blood Pressure Mean [Right Arm] 96 Blood Pressure Position [Right Arm] Pulse Oximetry 98 Oxygen Delivery Method Sepsis Recent Fever Within 48 Hours Sepsis New/Unexplained Change in Mental Status Sepsis Action Taken by Nursing VITALS: Vitals are noted on the nurse's note and reviewed by myself. Vital signs stable. GENERAL: This is a 55-year-old white male, in no acute distress, nondiaphoretic, well-developed well-nourished. SKIN: The skin was without rashes, erythema, edema, or bruising. There is no tenting of the skin. Capillary refill less than 2 seconds. HEAD: Normocephalic atraumatic. EYES: Conjunctivae without injection, sclerae without icterus. NECK: Supple without nuchal rigidity. No lymphadenopathy. No JVD. HEART: Regular rate and rhythm without murmurs gallops or rubs. LUNGS: Clear to auscultation bilaterally without wheezes, rales or rhonchi. No retractions or accessory muscle use. ABDOMEN: Positive bowel sounds x 4. Normal tympanic percussion. Epigastric tenderness to palpation. Abdomen otherwise soft, nontender, without masses or organomegaly. Hartman sign negative. No guarding or rebound tenderness. No CVA tenderness bilaterally MUSCULOSKELETAL: No muscle atrophy, erythema, or edema noted. Full range of motion without joint tenderness in all extremities. No tenderness to palpation. Normal gait. Strength 5/5 throughout. NEURO: Patient was alert and oriented to person place and time. No focal neurological deficits. Course Course The patient was seen and evaluated as above. An order was placed for continuous cardiac monitoring. The monitor shows a normal sinus rhythm at a rate of 62 bpm. IV access obtained, labs drawn. Patient hydrated with IV fluids. He was offered analgesics and declined. Labs reviewed by myself. Imaging performed and reviewed by myself and radiologist as noted. I discussed the findings with the patient at bedside. I discussed the case with my attending. [facility] She did speak with Dr. Rdz who recommended admission. She recommended initiating IV PPI, making the patient n.p.o. after midnight, and he will plan to be scoped tomorrow. Patient started on IV Protonix. He continues to complain of pain and was offered analgesics. He declined. He was medicated with Carafate due to his complaints of "burning" I spoke with Charito Viramontes PA-C with [facility] hospitalist group. She did agree to see and evaluate the patient for admission. Please see hospitalist dictation regarding ongoing management care of this patient Administered Medications Discontinued Medications Sodium Chloride (Nss 1000ml) 1,000 mls @ 999 mls/hr IV .Q1H1M ONE Stop: 01/23/21 12:25 Last Infusion: 01/23/21 15:01 Dose: 0 mls/hr Documented by: [id number] Admin: 01/23/21 12:56 Dose: 999 mls/hr Documented by: [id number] Ioversol (Optiray 320 100ml) 89 ml IV ONCE ONE Stop: 01/23/21 14:36 Last Admin: 01/23/21 14:36 Dose: 89 ml Documented by: [id number] Medical Decision Making Differential Diagnosis Etiologies such as appendicitis, diverticulitis, obstruction, inflammatory bowel disease, renal colic, PUD, biliary pathology, pancreatitis, mesenteric ischemia, aortic pathology, infections, genitourinary, UTI, perforated viscus, as well as others were entertained. Medical Records Attestation: I reviewed the patient's medical records. Home Medications Current Medication List: was personally reviewed by me Laboratory Data Attestation: I reviewed the patient's lab results. No leukocytosis, anemia, thrombocytopenia. Renal, hepatic function, and electrolytes without significant abnormality. INR 1. Urinalysis positive for 2+ blood. No clear evidence of infection. Troponin negative. Lipase 32. Result diagrams: 01/23/21 12:19 01/23/21 12:19 Lab Results 01/23/21 01/23/21 01/23/21 Range/Units 11:15 12:19 12:19 WBC 9.70 (4.8-10.8) K/uL RBC 4.77 (4.7-6.1) M/uL Hgb 14.4 (14.0-18.0) g/dL Hct 41.8 L (42-52) % MCV 87.6 (80-100) fL MCH 30.2 (25-34) pg MCHC 34.4 (32-36) g/dL RDW Std Deviation 43.0 (36.4-46.3) fL RDW Coeff of Pepe 13.4 (11.5-14.5) % Plt Count 163 (130-400) K/uL MPV 12.2 H (7.4-10.4) fL Immature Gran % (Auto) 0.2 % Neut % (Auto) 69.9 % Lymph % (Auto) 23.5 % [place] % (Auto) 5.4 % Eos % (Auto) 0.8 % Baso % (Auto) 0.2 % Neut # (Auto) 6.78 H (1.4-6.5) K/uL Lymph # (Auto) 2.28 (1.2-3.4) K/uL [place] # (Auto) 0.52 (0.11-0.59) K/uL Eos # (Auto) 0.08 (0-0.5) K/uL Baso # (Auto) 0.02 (0-0.2) K/uL Immature Gran # (Auto) 0.02 (0.00-0.02) K/uL PT 10.3 (9.0-12.0) Seconds INR 1.0 (0.9-1.1) Sodium (136-145) mmol/L Potassium (3.5-5.1) mmol/L Chloride (98-107) mmol/L Carbon Dioxide (21-32) mmol/L Anion Gap (3-11) BUN (7-18) mg/dl Creatinine (0.6-1.4) mg/dl Est Cr Clr Drug Dosing ml/min Est GFR ( Amer) ml/min Est GFR (Non-Af Amer) ml/min BUN/Creatinine Ratio (10-20) Glucose (70-99) mg/dl Calcium (8.5-10.1) mg/dl Total Bilirubin (0.2-1) mg/dl AST (15-37) U/L ALT (12-78) U/L Alkaline Phosphatase (45-117) U/L Troponin I (0-0.045) ng/ml Total Protein (6.4-8.2) gm/dl Albumin (3.4-5.0) gm/dl Globulin (2.5-4.0) gm/dl Albumin/Globulin Ratio (0.9-2) Lipase (73-393) U/L Urine Color Red Urine Appearance Cloudy A (Clear) Urine pH 6.5 (4.5-7.5) Ur Specific Woody 1.020 (1.000-1.030) Urine Protein 2+ H (Negative) Urine Glucose (UA) Negative (Negative) Urine Ketones Trace H (Negative) Urine Blood 2+ H (Negative) Urine Nitrite Negative (Negative) Urine Bilirubin Negative (Negative) Urine Urobilinogen Negative (Negative) Ur Leukocyte Esterase Negative (Negative) Urine RBC >30 H (0-4) /hpf Urine WBC 0-5 (0-5) /hpf Ur Epithelial Cells 0-5 (0-5) /lpf Urine Bacteria Negative (Negative) Hyaline Casts 0-5 (0-5) /lpf 01/23/21 Range/Units 12:19 WBC (4.8-10.8) K/uL RBC (4.7-6.1) M/uL Hgb (14.0-18.0) g/dL Hct (42-52) % MCV (80-100) fL MCH (25-34) pg MCHC (32-36) g/dL RDW Std Deviation (36.4-46.3) fL RDW Coeff of Pepe (11.5-14.5) % Plt Count (130-400) K/uL MPV (7.4-10.4) fL Immature Gran % (Auto) % Neut % (Auto) % Lymph % (Auto) % [place] % (Auto) % Eos % (Auto) % Baso % (Auto) % Neut # (Auto) (1.4-6.5) K/uL Lymph # (Auto) (1.2-3.4) K/uL [place] # (Auto) (0.11-0.59) K/uL Eos # (Auto) (0-0.5) K/uL Baso # (Auto) (0-0.2) K/uL Immature Gran # (Auto) (0.00-0.02) K/uL PT (9.0-12.0) Seconds INR (0.9-1.1) Sodium 141 (136-145) mmol/L Potassium 3.4 L (3.5-5.1) mmol/L Chloride 110 H (98-107) mmol/L Carbon Dioxide 27 (21-32) mmol/L Anion Gap 4.0 (3-11) BUN 11 (7-18) mg/dl Creatinine 0.64 (0.6-1.4) mg/dl Est Cr Clr Drug Dosing 146.5 ml/min Est GFR ( Amer) 129.6 ml/min Est GFR (Non-Af Amer) 111.8 ml/min BUN/Creatinine Ratio 17.2 (10-20) Glucose 140 H (70-99) mg/dl Calcium 8.8 (8.5-10.1) mg/dl Total Bilirubin 0.3 (0.2-1) mg/dl AST 24 (15-37) U/L ALT 48 (12-78) U/L Alkaline Phosphatase 93 (45-117) U/L Troponin I < 0.015 (0-0.045) ng/ml Total Protein 6.7 (6.4-8.2) gm/dl Albumin 3.4 (3.4-5.0) gm/dl Globulin 3.3 (2.5-4.0) gm/dl Albumin/Globulin Ratio 1.0 (0.9-2) Lipase 32 L (73-393) U/L Urine Color Urine Appearance (Clear) Urine pH (4.5-7.5) Ur Specific Woody (1.000-1.030) Urine Protein (Negative) Urine Glucose (UA) (Negative) Urine Ketones (Negative) Urine Blood (Negative) Urine Nitrite (Negative) Urine Bilirubin (Negative) Urine Urobilinogen (Negative) Ur Leukocyte Esterase (Negative) Urine RBC (0-4) /hpf Urine WBC (0-5) /hpf Ur Epithelial Cells (0-5) /lpf Urine Bacteria (Negative) Hyaline Casts (0-5) /lpf Imaging Data Radiologist's Impression: Abdomen/Pelvis CT 01/23/21 11:[address] WITH IV AND ORAL CONTRAST CT DOSE: 455.32 mGy.cm HISTORY: epigastric pain, h/o whipple, black stool TECHNIQUE: Multiaxial CT images of the abdomen and pelvis were performed following the use of intravenous and oral contrast. A dose lowering technique was utilized adhering to the principles of ALARA. COMPARISON STUDY: Abdomen and pelvis CT 09/27/2018. FINDINGS: The lung bases are clear. No pneumoperitoneum. No pneumatosis. No suspicious lytic or blastic osseous lesions. Stable 7 mm hypodense lesion within the liver. This is likely benign. No new hepatic lesions identified. Small focal hypodensities at the gallbladder fossa and kishan hepatis favors focal fat. The main portal vein is patent. A few mildly enlarged mesenteric lymph nodes remain stable. Postoperative changes consistent with a prior Whipple procedure. Punctate calcification seen within the residual pancreatic tail consistent with chronic pancreatitis. A pancreatic duct stent is good position. Minimal inflammatory change adjacent to the pancreatic tail could represent a mild acute on chronic pancreatitis. The kidneys enhance normally. Mild fullness within the bilateral renal collecting systems without milly hydronephrosis. This remains unchanged. Normal bladder. The prostate gland is mildly enlarged. No retroperitoneal or pelvic lymphadenopathy. Normal caliber abdominal aorta. The spleen and adrenal glands are unremarkable. There is focal thickening and mild inflammatory change at the gastrojejunostomy anastomosis and proximal jejunostomy loop best seen on image 181 through 206. No perforation or abscess identified. This could represent a nonspecific gastroenteritis or underlying ulcer disease. No dilated loops of bowel to suggest an obstruction. The bladder is unremarkable. The prostate gland is mildly enlarged. Moderate well-formed stool within the colon. The visualized appendix is unremarkable. Mild bilateral perinephric edema, unchanged. IMPRESSION: 1. There is focal thickening and mild inflammatory change at the gastrojejunostomy anastomosis and proximal jejunostomy loop. No perforation or abscess identified. This could represent a nonspecific gastroenteritis or underlying ulcer disease. 2. Minimal inflammatory change adjacent to the pancreatic tail could represent a mild acute on chronic pancreatitis. Recommend correlation with pancreatic enzymes. 3. Mild fullness within the bilateral renal collecting systems without milly hydronephrosis. This remains unchanged. 4. Prior Whipple procedure. The pancreatic duct stent in position. 5. No change in the mild mesenteric lymphadenopathy. ACT 112: Negative or not required by law. Electronically signed by: Adam Gracia M.D. 01/23/2021 3:24 PM Chest X-Ray 01/23/21 11:28 XR chest 1V portable HISTORY: 55 years-old Male epigastric pain acute epigastric abdominal pain with acute atypical chest pain COMPARISON: Acute abdominal series radiographs 09/27/2018 TECHNIQUE: Portable AP view of the chest FINDINGS: The cardiomediastinal and hilar silhouettes are within normal limits. No pneumothorax, pleural effusion, airspace consolidation or overt pulmonary edema. The bones of the chest appear grossly intact. Cholecystectomy clips. IMPRESSION: No acute process. ACT 112: Negative or not required by law. The above report was generated using voice recognition software. It may contain grammatical, syntax or spelling errors. Electronically signed by: James Ghotra M.D. 01/23/2021 11:47 AM ECG Data Attestation: I personally reviewed and interpreted this ECG as follows: Indication: + abdominal pain Rate (beats per minute): 58 Rhythm: + sinus bradycardia ECG Arrey: + Normal ECG ST segments: no ST depression, no ST elevation and no T-wave inversions Comparison ECG Date: from (03/06/2018) Change: the following changes noted (Ventrucular rate has decreased by 42 bpm) Blood Pressure Blood Pressure Findings: Normal blood pressure MDM Narrative This 55-year-old male patient presents to the emergency department today for evaluation of epigastric abdominal pain, hematuria, and black tarry stools. The patient was found to have a probable gastric ulcer on CT imaging which would be consistent with his symptoms. Lipase not elevated, doubt pancreatitis. Patient is afebrile. He is hemodynamically stable. No hypotension or tachycardia. I did speak with the gastroenterology team who would like to scope him tomorrow. They requested that he be admitted overnight with IV PPIs. This was initiated. I spoke with the [facility] hospitalist group who did agree to see and evaluate the patient for admission. Please see their dictation regarding ongoing management and care of this patient. The chart was completed utilizing [employer] Speech voice recognition software. Grammatical errors, random word insertions, pronoun errors, and incomplete sentences are an occasional consequence of this system due to software l imitations, ambient noise, and hardware issues. Any formal questions or concerns about the content, text, or information contained within the body of this dictation should be directly addressed to the provider for clarification. Impression & Plan GI bleed, Hematuria, Abdominal pain, History of pancreatic cancer Discharge Plan Visit Data Chief Complaint: Hematuria Stated Complaint: INCISION PAIN, BLACK URINE, BLOOD ED Provider: Andrew Joya ED Midlevel Provider: Jennifer Ley Discharge Problem: GI bleed, Hematuria, Abdominal pain, History of pancreatic cancer Patient Disposition: Admitted As Inpatient Forms Stand Alone Forms: [facility] Prescriptions Prescriptions: No Action hydrocodone-acetaminophen 5-325 mg tablet 1 tab PO DAILY RF: 0 sucralfate [Carafate] 1 gram tablet 1 g PO TID RF: 0 tamsulosin [Flomax] 0.4 mg capsule 0.4 mg PO QAM RF: 0 gabapentin [Neurontin] 300 mg capsule 300 mg PO TID RF: 0 Creon 12,000-38,000 -60,000 unit capsule,delayed release(DR/EC) 1 cap PO DIRECTED RF: 0 Referrals Referrals: PCP,NO [Primary Care Provider] -
[2021-01-23 12:40] LABS: Basophils # (auto) 0.02 K/uL (0-0.2); Basophils % (auto) 0.2 %; Eosinophils # (auto) 0.08 K/uL (0-0.5); Eosinophils % (auto) 0.8 %; Hematocrit (blood only) 41.8 % (42-52); Hemoglobin 14.4 g/dL (14.0-18.0); Immature Granulocytes # (auto) 0.02 K/uL (0.00-0.02); Immature Granulocytes % (auto) 0.2 %; Lymphocytes # (auto) 2.28 K/uL (1.2-3.4); Lymphocytes % (auto) 23.5 %; Mean Corpuscular Hemoglobin 30.2 pg (25-34); Mean Corpuscular Hgb Conc 34.4 g/dL (32-36); Mean Corpuscular Volume 87.6 fL (80-100); Mean Platelet Volume 12.2 fL (7.4-10.4); Monocytes # (auto) 0.52 K/uL (0.11-0.59); Monocytes % (auto) 5.4 %; Neutrophils # (auto) 6.78 K/uL (1.4-6.5); Neutrophils % (auto) 69.9 %; Platelet Count 163 K/uL (130-400); RDW Coefficient of Variation 13.4 % (11.5-14.5); Red Blood Count 4.77 M/uL (4.7-6.1)
[2021-01-23 12:59] LABS: Alanine Aminotransferase 48 U/L (12-78); Albumin Level 3.4 gm/dl (3.4-5.0); Aspartate Aminotransferase 24 U/L (15-37); BUN Creatinine Ratio 17.2 (10-20); Blood Urea Nitrogen 11 mg/dl (7-18); Calcium 8.8 mg/dl (8.5-10.1); Carbon Dioxide 27 mmol/L (21-32); Chloride 110 mmol/L (98-107); Creatinine Clr Calc Pharmacy 146.5 ml/min; Est GFR (African American) 129.6 ml/min; Est GFR (Non-African American) 111.8 ml/min; Glucose 140 mg/dl (70-99); Lipase 32 U/L (73-393); Potassium 3.4 mmol/L (3.5-5.1); Sodium 141 mmol/L (136-145)
[2021-01-23 13:01] LABS: Prothrombin Time 10.3 Seconds (9.0-12.0)
[2021-01-23 13:04] LABS: Alkaline Phosphatase 93 U/L (45-117); Bilirubin,Total 0.3 mg/dl (0.2-1); Globulin 3.3 gm/dl (2.5-4.0); Total Protein 6.7 gm/dl (6.4-8.2); Troponin I < 0.015 ng/ml (0-0.045)
[2021-01-23] MEDS ORDERED: OPTIRAY 320 100ml IV ONE (14:35)
--- NOTE | 2021-01-23 15:26 | CT Scan Report ---
ABDOMEN AND PELVIS CT WITH IV AND ORAL CONTRAST CT DOSE: 455.32 mGy.cm HISTORY: epigastric pain, h/o whipple, black stool TECHNIQUE: Multiaxial CT images of the abdomen and pelvis were performed following the use of intrave nous and oral contrast. A dose lowering technique was utilized adhering to the principles of ALARA. COMPARISON STUDY: Abdomen and pelvis CT 09/27/2018. FINDINGS: The lung bases are clear. No pneumoperitoneum. No pneumatosis. No suspicious lytic or blast ic osseous lesions. Stable 7 mm hypodense lesion within the liver. This is likely benign. No new hepa tic lesions identified. Small focal hypodensities at the gallbladder fossa and kishan hepatis favors f ocal fat. The main portal vein is patent. A few mildly enlarged mesenteric lymph nodes remain stable. Postoperative changes consistent with a prior Whipple procedure. Punctate calcification seen within the residual pancreatic tail consistent with chronic pancreatitis. A pancreatic duct stent is good po sition. Minimal inflammatory change adjacent to the pancreatic tail could represent a mild acute on c hronic pancreatitis. The kidneys enhance normally. Mild fullness within the bilateral renal collectin g systems without milly hydronephrosis. This remains unchanged. Normal bladder. The prostate gland is mildly enlarged. No retroperitoneal or pelvic lymphadenopathy. Normal caliber abdominal aorta. The s pleen and adrenal glands are unremarkable. There is focal thickening and mild inflammatory change at the gastrojejunostomy anastomosis and proximal jejunostomy loop best seen on image 181 through 206. N o perforation or abscess identified. This could represent a nonspecific gastroenteritis or underlying ulcer disease. No dilated loops of bowel to suggest an obstruction. The bladder is unremarkable. The prostate gland is mildly enlarged. Moderate well-formed stool within the colon. The visualized appen ashley is unremarkable. Mild bilateral perinephric edema, unchanged. IMPRESSION: 1. There is focal thickening and mild inflammatory change at the gastrojejunostomy anastomosis and pr oximal jejunostomy loop. No perforation or abscess identified. This could represent a nonspecific gas troenteritis or underlying ulcer disease. 2. Minimal inflammatory change adjacent to the pancreatic tail could represent a mild acute on chroni c pancreatitis. Recommend correlation with pancreatic enzymes. 3. Mild fullness within the bilateral renal collecting systems without milly hydronephrosis. This rem ains unchanged. 4. Prior Whipple procedure. The pancreatic duct stent in position. 5. No change in the mild mesenteric lymphadenopathy. ACT 112: Negative or not required by law. Electronically signed by: Adam Gracia M.D. 01/23/2021 3:24 PM
[2021-01-23] MEDS ORDERED: PANTOPRAZOLE BOLUS/DRIP 1 EA IV STA (16:22)
[2021-01-23] MEDS ORDERED: PANTOprazole 80 MG in DEXTROSE 5% 100 ML IV ONE (16:22)
[2021-01-23] MEDS ORDERED: SUCRALFATE 1 GM/10 ML UDC PO STA (16:31)
[2021-01-23] MEDS ORDERED: MoRPHine SULFATE 2 MG/ML CARP IV PRN (17:40)
[2021-01-23] MEDS ORDERED: ACETAMINOPHEN 325 MG TAB PO PRN (17:40)
--- NOTE | 2021-01-23 17:40 | History & Physical Report ---
Date of Service January 23, 2021 Assessment & Plan (1) GI bleed: Imaging and exam concerning for potential anastomotic ulcer - ED spoke with GI provider who recommends IV PPI and further evaluation - Admit to med/surg telemetry - Monitor H&H for stability - IV PPI started in the ED - Consult GI for probable EGD tomorrow - Clear liquids tonight, then NPO after midnight (2) Hematuria: Unclear etiology - ongoing issue in the ED - Check urine cytology - Consult urology for recommendations regarding additional work-up - Follow H&H for stability (3) History of pancreatic cancer: Completed treatment in 2019. Continues to follow regularly with hem/onc for observation/imaging - Continue Creon for pancreatic insufficiency (4) Chemotherapy-induced neuropathy: - Continue outpatient gabapentin (5) BPH (benign prostatic hyperplasia): - Continue tamsulosin Pt seen and reviewed with collaborating physician, Dr. Meier. Plan of care discussed and as outlined above. Code Status: Full code DVT prophylaxis: Frank Viramontes PA-C History of Present Illness Chief Complaint: Epigastric pain, hematuria Primary Care Provider: NO PCP This is a 55 y/o male with a PMH of stage 1 pancreatic CA s/p Whipple procedure and chemotherapy, BPH, and chemotherapy-induced neuropathy presents to the ED today with worsening abdominal pain, melena, and new-onset hematuria. Since the Whipple procedure, pt notes episodes of incisional pain in the epigastric area about every other month, usually with associated dark stools. These typically last a few days to at most two weeks and resolve without specific intervention. However, his current episode of pain started about four weeks ago and has been more severe than any prior episode. He describes the pain as both burning and stabbing "like a knife" but without radiation. Pain may keep him up at night. He has not noticed that eating makes things any better or worse consistently although some foods, like cold milk or ice cream, may give him some transient relief. He has noted associated bloating and increased eructation. He has had dark green to black loose stools over the past two weeks although notes that this is improving over the past couple days though still not back to normal. Denies dysphagia or odynophagia. Over the past week, he has noted a loss of appetite with an associated 7 lb unintentional weight loss in the same time period. Overnight, he developed gross hematuria, which he denies ever experiencing previously. Because of the severe pain and the new hematuria, he decided to come to the ED for evaluation. He has been using hydrocodone for the abdominal pain without significant relief. He occasionally takes ibuprofen 400 mg for joint pains (shoulders/elbows) but does not take consistently, nor has he been using it more frequently recently. Allergies Allergy/AdvReac Type Severity Reaction Status Date / Time No Known Allergies Allergy Verified 01/23/21 13:46 Home Medications Medication Instructions Recorded Confirmed Type gabapentin [Neurontin] 300 mg PO TID 01/23/21 01/23/21 History hydrocodone-acetaminophen 1 tab PO DAILY 01/23/21 01/23/21 History dnzngm-olenmwfu-[id number] [Creon] 1 cap PO DIRECTED 01/23/21 01/23/21 History sucralfate [Carafate] 1 g PO TID 01/23/21 01/23/21 History tamsulosin [Flomax] 0.4 mg PO QAM 01/23/21 01/23/21 History Past Med/Surg History Medical History BPH (benign prostatic hyperplasia) Chemotherapy-induced neuropathy Pancreatic cancer Dx in 2018, underwent Whipple and chemo (completed in 2019) Surgical History History of arthroscopy of shoulder x 2 History of Whipple procedure Social History (Updated 01/23/21 @ 17:49 by Mandie Viramontes PA-C) Smoking Status: Current every day smoker Tobacco Type: Cigarettes Hx Alcohol Use: No Preferred Language: [place] Rican Current Living Situation: Spouse Feels Safe at Home: Yes Review of Systems Review of Systems: All systems reviewed & are unremarkable except as noted in HPI & below Constitutional: + fatigue, + weakness and + weight loss; no fever and no sweats Eyes: no diplopia and no worsening vision Ear, Nose, Mouth, Throat: no nasal congestion, no nasal discharge, no sore throat and no dysphagia Respiratory: no cough, no chest congestion, no dyspnea, no hemoptysis and no wheezing Cardiovascular: + lightheadedness (with sudden position changes - chronic issue); no chest pain, no palpitations, no syncope and no edema Gastrointestinal: as per Subjective / HPI Genitourinary: + nocturia (chronic) and + hematuria; no dysuria, no urinary frequency and no flank pain Musculoskeletal: + joint pain and + myalgia; no back pain and no neck pain Integumentary: no rash, no skin ulcer and no change in skin color Neurologic: + numbness (chronic related to peripheral neuropathy from chemotherapy); no tremor(s), no seizure-like activity, no headache(s) and no confusion Physical Exam Constitutional: WD/WN, vitals as above no acute distress Eyes: PERRL, conjunctivae normal, anicteric sclerae ENMT: external ear and nose normal, oropharynx normal Neck: trachea midline Respiratory: no respiratory distress and no labored breathing Auscultation: lungs clear to auscultation bilaterally; no rales, no rhonchi and no wheezes Cardiovascular: Rate/Rhythm: regular rate and regular rhythm Heart Sounds: no gallop, no murmur and no cardiac rub Vessels: dorsalis pedis pulses present and radial pulses present; no carotid bruit Extremities: no calf tenderness and no pedal edema Gastrointestinal (Abdomen): Inspection/Auscultation: normal bowel sounds; abdomen not distended Percussion/Palpation: + abdomen tender (exquisitely ten aleah in epigastric area, mild tenderness diffusely), + guarding (voluntary in epigastric region) and abdomen soft Musculoskeletal: Head/Neck/Chest: normocephalic, head atraumatic and neck supple Spindle Setter strength 4/5 on right, 5/5 on left. Plantar flexion/dorsiflexion 5/5 bilaterally Skin: no rashes, warm and dry no jaundice Neurologic: no focal motor deficits Speech / Cognition: normal speech Motor/Sensory: no tremor diminished sensation to light touch right > left fingers Psychiatric: A+Ox3, euthymic affect Results & Data Results & Data ([facility]) Vital Signs (Past 12 Hours) Vital Signs Temp Pulse Pulse Resp BP BP Pulse Ox 01/23/21 15:49 54 L 16 130/79 98 01/23/21 14:14 54 L 14 160/83 H 98 01/23/21 11:48 68 65 14 151/84 H 99 01/23/21 10:56 36.6 C 79 18 137/84 98 Laboratory Results Laboratory Results - last 24 hr 01/23/21 01/23/2121 11:15 12:19 12:19 WBC 9.70 RBC 4.77 Hgb 14.4 Hct 41.8 L MCV 87.6 MCH 30.2 MCHC 34.4 RDW Std Deviation 43.0 RDW Coeff of Pepe 13.4 Plt Count 163 MPV 12.2 H Immature Gran % (Auto) 0.2 Neut % (Auto) 69.9 Lymph % (Auto) 23.5 [place] % (Auto) 5.4 Eos % (Auto) 0.8 Baso % (Auto) 0.2 Neut # (Auto) 6.78 H Lymph # (Auto) 2.28 [place] # (Auto) 0.52 Eos # (Auto) 0.08 Baso # (Auto) 0.02 Immature Gran # (Auto) 0.02 PT 10.3 INR 1.0 Sodium Potassium Chloride Carbon Dioxide Anion Gap BUN Creatinine Est Cr Clr Drug Dosing Est GFR ( Amer) Est GFR (Non-Af Amer) BUN/Creatinine Ratio Glucose Calcium Total Bilirubin AST ALT Alkaline Phosphatase Troponin I Total Protein Albumin Globulin Albumin/Globulin Ratio Lipase Urine Color Red Urine Appearance Cloudy A Urine pH 6.5 Ur Specific [place] 1.020 Urine Protein 2+ H Urine Glucose (UA) Negative Urine Ketones Trace H Urine Blood 2+ H Urine Nitrite Negative Urine Bilirubin Negative Urine Urobilinogen Negative Ur Leukocyte Esterase Negative Urine RBC >30 H Urine WBC 0-5 Ur Epithelial Cells 0-5 Urine Bacteria Negative Hyaline Casts 0-5 01/23/21 12:19 WBC RBC Hgb Hct MCV MCH MCHC RDW Std Deviation RDW Coeff of Pepe Plt Count MPV Immature Gran % (Auto) Neut % (Auto) Lymph % (Auto) [place] % (Auto) Eos % (Auto) Baso % (Auto) Neut # (Auto) Lymph # (Auto) [place] # (Auto) Eos # (Auto) Baso # (Auto) Immature Gran # (Auto) PT INR Sodium 141 Potassium 3.4 L Chloride 110 H Carbon Dioxide 27 Anion Gap 4.0 BUN 11 Creatinine 0.64 Est Cr Clr Drug Dosing 146.5 Est GFR ( Amer) 129.6 Est GFR (Non-Af Amer) 111.8 BUN/Creatinine Ratio 17.2 Glucose 140 H Calcium 8.8 Total Bilirubin 0.3 AST 24 ALT 48 Alkaline Phosphatase 93 Troponin I < 0.015 Total Protein 6.7 Albumin 3.4 Globulin 3.3 Albumin/Globulin Ratio 1.0 Lipase 32 L Urine Color Urine Appearance Urine pH Ur Specific [place] Urine Protein Urine Glucose (UA) Urine Ketones Urine Blood Urine Nitrite Urine Bilirubin Urine Urobilinogen Ur Leukocyte Esterase Urine RBC Urine WBC Ur Epithelial Cells Urine Bacteria Hyaline Casts Diagnostic Findings Chest X-ray 01/23/21 - IMPRESSION: No acute process. CT Abd/Pel 01/23/21 - IMPRESSION: 1. There is focal thickening and mild inflammatory change at the gastrojejunostomy anastomosis and proximal jejunostomy loop. No perforation or abscess identified. This could represent a nonspecific gastroenteritis or underlying ulcer disease. 2. Minimal inflammatory change adjacent to the pancreatic tail could represent a mild acute on chronic pancreatitis. Recommend correlation with pancreatic enzymes. 3. Mild fullness within the bilateral renal collecting systems without milly hydronephrosis. This remains unchanged. 4. Prior Whipple procedure. The pancreatic duct stent in position. 5. No change in the mild mesenteric lymphadenopathy. Medications Administered Discontinued Medications Sodium Chloride (Nss 1000ml) 1,000 mls @ 999 mls/hr IV .Q1H1M ONE Stop: 01/23/21 12:25 Last Infusion: 01/23/21 15:01 Dose: 0 mls/hr Documented by: [id number] Admin: 01/23/21 12:56 Dose: 999 mls/hr Documented by: [id number] Pantoprazole Sodium 80 mg/ (Dextrose) 120 mls @ 400 mls/hr IV NOW ONE Stop: 01/23/21 16:39 Last Admin: 01/23/21 17:15 Dose: 400 mls/hr Documented by: [id number] Ioversol (Optiray 320 100ml) 89 ml IV ONCE ONE Stop: 01/23/21 14:36 Last Admin: 01/23/21 14:36 Dose: 89 ml Documented by: [id number] Code Status & VTE Plan VTE Prophylaxis Plan VTE Prophylaxis will be ordered: Yes Supervising Physician Co-Signing Physician Notes I have seen and examined the patient and have discussed the case with the provider above. I agree with the assessment and plan as stated. 55 yo patient with h/o malignancy presented with gross hematuria and intermittent black tarry stools. Feels well overall. Admission to expedite upper GI with questionable anastomotic ulcer. Clears and NPO p MN. GI consult. Physical exam as above, Vitals are stable. No evidence of kidney stones or UTI. Urology consulted for hematuria. DO Hardeep (1) Hematuria Hematuria type: gross Qualified Code(s): R31.0 - Gross hematuria (2) GI bleed GI bleed type/associated pathology: gastrojejunal ulcer Qualified Code(s): K28.4 - Chronic or unspecified gastrojejunal ulcer with hemorrhage
[2021-01-23] MEDS: PANTOprazole 40 MG in DEXTROSE 5% 100 ML IV SCH ×2 (18:02→23:26)
--- NOTE | 2021-01-23 18:32 | Electrocardiogram Report ---
Test Reason : Blood Pressure : / mmHG Vent. Rate : 058 BPM Atrial Rate : 058 BPM P-R Int : 152 ms QRS Dur : 088 ms QT Int : 422 ms P-R-T Axes : 072 075 061 degrees QTc Int : 414 ms Sinus bradycardia Low voltage QRS Borderline ECG When compared with ECG of 06-MAR-2018 00:00, Vent. rate has decreased BY 42 BPM Confirmed by Remberto Hammond ([id number]) on 01/23/2021 6:31:52 PM Referred By: REFERRED SELF Confirmed By:Barrie Hammond
[2021-01-23] MEDS ORDERED: ONDANSETRON INJ 2 MG/ML 2 ML VIAL IV PRN (22:23)
[2021-01-23] MEDS: GABAPENTIN 300 MG CAP PO SCH (23:26)
[2021-01-23] MEDS: SUCRALFATE 1 GM TAB PO SCH (23:27)
[2021-01-24] MEDS: PANTOprazole 40 MG in DEXTROSE 5% 100 ML IV SCH ×2 (04:34→11:19)
--- NOTE | 2021-01-24 05:52 | Urology Consultation ---
Date of Consultation January 24, 2021 Assessment & Plan (1) Hematuria: Patient has been admitted on the hospitalist service: We recommend proceeding as follows: Recommend following serial labs to ensure stability of his hemoglobin and hematocrit The patient has reported to me that due to his abdominal pain and concern for GI bleed he is scheduled for endoscopic evaluation this morning and this should proceed as scheduled During the patient's hematuria he notes he is able to urinate without difficulty and is not passing any blood clots that would prevent him from urinating. Recommend merely monitoring this condition for now until his GI bleed has been further evaluated. If his hematuria persists consideration can be given to performing cystoscopic evaluation. History of Present Illness Reason for Consultation: Hematuria Attending Physician: Gail Meier, History of Present Illness This is a 55-year-old male with a history of pancreatic cancer who is status post a Whipple procedure and chemotherapy. Patient also is noted to have BPH. He presented to the emergency department on the day of admission secondary to abdominal pain as well as melanotic stool and new onset hematuria. Due to the concern for GI bleed the patient has been admitted for GI work-up by gastroenterology however due to his new hematuria urology consultation has been requested as well. Concerning patient's hematuria the patient notes that he is having Jake-Aid colored urine. He denies passing any blood clots. He denies any dysuria or urinary frequency. He denies any incomplete bladder emptying. He denies ever having hematuria in the past. The patient does note an unspecified amount of weight loss over the past several weeks. He denies any back or flank pain. At the time of my exam the patient was resting comfortably in bed in no distress Allergies Allergy/AdvReac Type Severity Reaction Status Date / Time No Known Allergies Allergy Verified 01/23/21 13:46 Home Medications Medication Instructions Recorded Confirmed Type gabapentin 300 mg capsule 300 mg PO TID 01/23/21 01/23/21 History (Neurontin) hydrocodone 5 mg-acetaminophen 325 1 tab PO DAILY 01/23/21 01/23/21 History mg tablet ezptns-hanzrbyp-tmqwggt 1 cap PO DIRECTED 01/23/21 01/23/21 History 12,000-38,000-60,000 unit capsule,delayed rel (Creon) sucralfate 1 gram tablet (Carafate) 1 g PO TID 01/23/21 01/23/21 History tamsulosin 0.4 mg capsule (Flomax) 0.4 mg PO QAM 01/23/21 01/23/21 History Patient History Medical History BPH (benign prostatic hyperplasia) Chemotherapy-induced neuropathy Pancreatic cancer Dx in 2018, underwent Whipple and chemo (completed in 2019) Surgical History History of arthroscopy of shoulder x 2 History of Whipple procedure Social History Smoking Status: Current every day smoker Tobacco Type: Cigarettes Do You Dip or Chew Tobacco: No; Hx Alcohol Use: No Hx Substance Use: No Preferred Language: Khmer Communication Ability: Effective Cert Occupational Therapy Asst Required: No Beliefs That Will Affect Care: None Current Living Situation: Spouse Feels Safe at Home: Yes Safety Concerns: Feels Safe At This Time Review of Systems Constitutional: no fever and no chills Eyes: no diplopia Ear, Nose, Mouth, Throat: no ear pain Respiratory: no cough and no dyspnea Cardiovascular: no chest pain Gastrointestinal: + abdominal pain and + melena Genitourinary: + hematuria; no dysuria or no flank pain Musculoskeletal: no back pain Integumentary: no rash Neurologic: no localized weakness Physical Exam Constitutional: well developed and well nourished; no acute distress Eyes: no conjunctival abnormality ENMT: Ears: no hearing impairment Neck: trachea midline Respiratory: normal respiratory effort; no respiratory distress and no labored breathing Cardiovascular: Rate/Rhythm: regular rate and regular rhythm Gastrointestinal (Abdomen): Abdomen is soft and nontender Musculoskeletal: No calf tenderness Skin: no jaundice Neurologic: moves all extremities Psychiatric: Orientation: alert and oriented x 3 Results & Data ([facility]) Vital Signs (Past 12 Hours) Vital Signs Temp Pulse Pulse Resp BP BP Pulse Ox 01/24/21 04:00 37.0 C 50 L 20 132/76 96 01/24/21 00:21 53 L 01/23/21 22:29 68 01/23/21 22:23 36.8 C 77 16 127/71 97 01/23/21 20:30 58 L 21 145/77 H 97 01/23/21 20:00 54 L 19 135/59 L 97 01/23/21 19:30 70 24 131/83 99 01/23/21 19:00 54 L 20 146/80 H 96 01/23/21 18:58 54 L 16 152/79 H 97 01/23/21 18:30 62 21 152/79 H 97 01/23/21 18:00 58 L 17 147/84 H 98 PG Care Time/CCT Total # of Minutes Spent Total Time Spent with Patient: Total time spent is greater than 50% in coordination of care (as documented) at patient's floor/unit and/or counseling patient: Coding Level of Care Code 93537 Inpt Consult Level 5 Diagnoses Hematuria R31.0 Hematuria type: gross (1) Hematuria Hematuria type: gross Qualified Code(s): R31.0 - Gross hematuria
[2021-01-24 07:39] LABS: Basophils # (auto) 0.06 K/uL (0-0.2); Basophils % (auto) 0.7 %; Eosinophils # (auto) 0.18 K/uL (0-0.5); Eosinophils % (auto) 2.1 %; Hematocrit (blood only) 42.1 % (42-52); Hemoglobin 14.2 g/dL (14.0-18.0); Immature Granulocytes # (auto) 0.01 K/uL (0.00-0.02); Immature Granulocytes % (auto) 0.1 %; Lymphocytes % (auto) 26.4 %; Mean Corpuscular Hemoglobin 29.6 pg (25-34); Mean Corpuscular Hgb Conc 33.7 g/dL (32-36); Mean Corpuscular Volume 87.9 fL (80-100); Mean Platelet Volume 12.1 fL (7.4-10.4); Monocytes # (auto) 0.67 K/uL (0.11-0.59); Monocytes % (auto) 7.7 %; Platelet Count 163 K/uL (130-400); RDW Coefficient of Variation 13.2 % (11.5-14.5); Red Blood Count 4.79 M/uL (4.7-6.1); White Blood Count 8.72 K/uL (4.8-10.8)
[2021-01-24 08:09] LABS: BUN Creatinine Ratio 17.7 (10-20); Calcium 8.4 mg/dl (8.5-10.1); Creatinine Clr Calc Pharmacy 142.1 ml/min; Est GFR (African American) 127.9 ml/min; Est GFR (Non-African American) 110.4 ml/min; Potassium 3.6 mmol/L (3.5-5.1)
[2021-01-24] MEDS: PANCREAZE (LIPASE 10,500U) CAP PO SCH ×2 (08:30→11:20)
[2021-01-24] MEDS: GABAPENTIN 300 MG CAP PO SCH (08:31)
[2021-01-24] MEDS: SUCRALFATE 1 GM TAB PO SCH (08:32)
--- NOTE | 2021-01-24 08:52 | Gastrointestinal Consultation ---
Date of Consultation January 24, 2021 Assessment & Plan (1) Abdominal pain: 55 year old male with history of panc ca s/p whipple presenting with upper abd pain and dark stools for 1-2 weeks after short course of NSAIDs for shoulder pain. He was made NPO and started on IV PPI, notes his BM overnight was less black and more brown. CT w/ mild inflammatory change at the gastrojejunostomy anastomosis and proximal jejunostomy loop NPO IV PPI continued EGD this AM No NSAIDs Thank you for allowing us to participate in the care of this patient. Please call with any acute changes, questions or concerns. Please see addendum below with additional recommendation from my supervising physician. Supervising Physician Co-Signing Physician Notes I have seen and examined the patient and discussed the management with ALDAIR Fuller. Admitted with reported of abdominal pain and melena. Improved since IV PPI overnite. No acute belly pain today. H/h stable, bun stable. EGD for evaluation of abdominal pain. History of Present Illness Reason for Consultation: dark stools, ?ulcer on CT Requesting Physician: Terrance Attending Physician: Richie Carlos MD History of Present Illness 55 year old male with history of stage 1 pancreatic CA s/p Whipple procedure and chemotherapy, BPH, and chemotherapy-induced neuropathy admitted through the ED with hematuria, GI asked to evaluate for dark stools, abnormal imaging. Pt notes about a 2 week history of epigastric abdominal pain. This is dull and burning. No associated nausea/vomiting. But did suggests he had less appetite when pain was present. Around the same time he noted change in stools, dark, black and tarry. There was no associated hematochezia or report of previous hematemesis or coffee ground emesis. Denies ETOH. Does report had given him some NSAIDs for MSK shoulder pain. CTAP concerning for underlying inflammatory changes. Allergies Allergy/AdvReac Type Severity Reaction Status Date / Time No Known Allergies Allergy Verified 01/24/21 09:46 Home Medications Medication Instructions Recorded Confirmed Type gabapentin 300 mg capsule 300 mg PO TID 01/23/21 01/23/21 History (Neurontin) hydrocodone 5 mg-acetaminophen 325 1 tab PO DAILY 01/23/21 01/23/21 History mg tablet [id number] 1 cap PO DIRECTED 01/23/21 01/23/21 History 12,000-38,000-60,000 unit capsule,delayed rel (Creon) sucralfate 1 gram tablet (Carafate) 1 g PO TID 01/23/21 01/23/21 History tamsulosin 0.4 mg capsule (Flomax) 0.4 mg PO QAM 01/23/21 01/23/21 History Patient History Medical History BPH (benign prostatic hyperplasia) Chemotherapy-induced neuropathy Pancreatic cancer Dx in 2018, underwent Whipple and chemo (completed in 2019) Surgical History History of arthroscopy of shoulder x 2 History of Whipple procedure Social History Smoking Status: Current every day smoker Tobacco Type: Cigarettes Do You Dip or Chew Tobacco: No; Hx Alcohol Use: No Hx Substance Use: No Preferred Language: Lao Communication Ability: Effective Nutritionalist Required: No Beliefs That Will Affect Care: None Current Living Situation: Spouse Feels Safe at Home: Yes Safety Concerns: Feels Safe At This Time Review of Systems Review of Systems: All systems reviewed & are unremarkable except as noted in HPI & below Physical Exam Constitutional: WD/WN, vitals as above Eyes: PERRL, conjunctivae normal, anicteric sclerae Neck: trachea midline, no thyromegaly Respiratory: normal respiratory effort, lungs clear to auscultation Cardiovascular: RRR, no murmur, no edema Gastrointestinal (Abdomen): normal bowel sounds, soft, nontender, no hepatosplenomegaly Skin: no rashes, warm and dry Results & Data ([facility]) Vital Signs (Past 12 Hours) Vital Signs Temp Pulse Pulse Resp BP Pulse Ox 01/24/21 07:00 36.7 C 59 L 18 143/72 H 97 01/24/21 04:00 37.0 C 50 L 20 132/76 96 01/24/21 00:21 53 L 01/23/21 22:29 68 01/23/21 22:23 36.8 C 77 16 127/71 97 Laboratory Results 01/24/21 01/24/21 01/23/21 Range/Units 07:09 07:09 18:54 WBC 8.72 (4.8-10.8) K/uL RBC 4.79 (4.7-6.1) M/uL Hgb 14.2 (14.0-18.0) g/dL Hct 42.1 (42-52) % MCV 87.9 (80-100) fL MCH 29.6 (25-34) pg MCHC 33.7 (32-36) g/dL RDW Std Deviation 43.0 (36.4-46.3) fL RDW Coeff of Pepe 13.2 (11.5-14.5) % Plt Count 163 (130-400) K/uL MPV 12.1 H (7.4-10.4) fL Immature Gran % (Auto) 0.1 % Neut % (Auto) 63.0 % Lymph % (Auto) 26.4 % [place]oke % (Auto) 7.7 % Eos % (Auto) 2.1 % Baso % (Auto) 0.7 % Neut # (Auto) 5.50 (1.4-6.5) K/uL Lymph # (Auto) 2.30 (1.2-3.4) K/uL [place] # (Auto) 0.67 H (0.11-0.59) K/uL Eos # (Auto) 0.18 (0-0.5) K/uL Baso # (Auto) 0.06 (0-0.2) K/uL Immature Gran # (Auto) 0.01 (0.00-0.02) K/uL PT (9.0-12.0) Seconds INR (0.9-1.1) Sodium 143 (136-145) mmol/L Potassium 3.6 (3.5-5.1) mmol/L Chloride 112 H (98-107) mmol/L Carbon Dioxide 26 (21-32) mmol/L Anion Gap 5.0 (3-11) BUN 12 (7-18) mg/dl Creatinine 0.66 (0.6-1.4) mg/dl Est Cr Clr Drug Dosing 142.1 ml/min Est GFR ( Amer) 127.9 ml/min Est GFR (Non-Af Amer) 110.4 ml/min BUN/Creatinine Ratio 17.7 (10-20) Glucose 104 H (70-99) mg/dl Calcium 8.4 L (8.5-10.1) mg/dl Total Bilirubin (0.2-1) mg/dl AST (15-37) U/L ALT (12-78) U/L Alkaline Phosphatase (45-117) U/L Troponin I (0-0.045) ng/ml Total Protein (6.4-8.2) gm/dl Albumin (3.4-5.0) gm/dl Globulin (2.5-4.0) gm/dl Albumin/Globulin Ratio (0.9-2) Lipase (73-393) U/L Urine Color Urine Appearance (Clear) Urine pH (4.5-7.5) Ur Specific [place] (1.000-1.030) Urine Protein (Negative) Urine Glucose (UA) (Negative) Urine Ketones (Negative) Urine Blood (Negative) Urine Nitrite (Negative) Urine Bilirubin (Negative) Urine Urobilinogen (Negative) Ur Leukocyte Esterase (Negative) Urine RBC (0-4) /hpf Urine WBC (0-5) /hpf Ur Epithelial Cells (0-5) /lpf Urine Bacteria (Negative) Hyaline Casts (0-5) /lpf COVID-19 Eval Order SARS-CoV-2 (PCR) NEGATIVE (Negative) 01/23/21 01/23/21 01/23/21 Range/Units 18:54 12:19 12:19 WBC (4.8-10.8) K/uL RBC (4.7-6.1) M/uL Hgb (14.0-18.0) g/dL Hct (42-52) % MCV (80-100) fL MCH (25-34) pg MCHC (32-36) g/dL RDW Std Deviation (36.4-46.3) fL RDW Coeff of Pepe (11.5-14.5) % Plt Count (130-400) K/uL MPV (7.4-10.4) fL Immature Gran % (Auto) % Neut % (Auto) % Lymph % (Auto) % [place] % (Auto) % Eos % (Auto) % Baso % (Auto) % Neut # (Auto) (1.4-6.5) K/uL Lymph # (Auto) (1.2-3.4) K/uL [place] # (Auto) (0.11-0.59) K/uL Eos # (Auto) (0-0.5) K/uL Baso # (Auto) (0-0.2) K/uL Immature Gran # (Auto) (0.00-0.02) K/uL PT 10.3 (9.0-12.0) Seconds INR 1.0 (0.9-1.1) Sodium 141 (136-145) mmol/L Potassium 3.4 L (3.5-5.1) mmol/L Chloride 110 H (98-107) mmol/L Carbon Dioxide 27 (21-32) mmol/L Anion Gap 4.0 (3-11) BUN 11 (7-18) mg/dl Creatinine 0.64 (0.6-1.4) mg/dl Est Cr Clr Drug Dosing 146.5 ml/min Est GFR ( Amer) 129.6 ml/min Est GFR (Non-Af Amer) 111.8 ml/min BUN/Creatinine Ratio 17.2 (10-20) Glucose 140 H (70-99) mg/dl Calcium 8.8 (8.5-10.1) mg/dl Total Bilirubin 0.3 (0.2-1) mg/dl AST 24 (15-37) U/L ALT 48 (12-78) U/L Alkaline Phosphatase 93 (45-117) U/L Troponin I < 0.015 (0-0.045) ng/ml Total Protein 6.7 (6.4-8.2) gm/dl Albumin 3.4 (3.4-5.0) gm/dl Globulin 3.3 (2.5-4.0) gm/dl Albumin/Globulin Ratio 1.0 (0.9-2) Lipase 32 L (73-393) U/L Urine Color Urine Appearance (Clear) Urine pH (4.5-7.5) Ur Specific [place] (1.000-1.030) Urine Protein (Negative) Urine Glucose (UA) (Negative) Urine Ketones (Negative) Urine Blood (Negative) Urine Nitrite (Negative) Urine Bilirubin (Negative) Urine Urobilinogen (Negative) Ur Leukocyte Esterase (Negative) Urine RBC (0-4) /hpf Urine WBC (0-5) /hpf Ur Epithelial Cells (0-5) /lpf Urine Bacteria (Negative) Hyaline Casts (0-5) /lpf COVID-19 Eval Order Covid19 at [facility] SARS-CoV-2 (PCR) (Negative) 01/23/21 01/23/21 Range/Units 12:19 11:15 WBC 9.70 (4.8-10.8) K/uL RBC 4.77 (4.7-6.1) M/uL Hgb 14.4 (14.0-18.0) g/dL Hct 41.8 L (42-52) % MCV 87.6 (80-100) fL MCH 30.2 (25-34) pg MCHC 34.4 (32-36) g/dL RDW Std Deviation 43.0 (36.4-46.3) fL RDW Coeff of Pepe 13.4 (11.5-14.5) % Plt Count 163 (130-400) K/uL MPV 12.2 H (7.4-10.4) fL Immature Gran % (Auto) 0.2 % Neut % (Auto) 69.9 % Lymph % (Auto) 23.5 % [place] % (Auto) 5.4 % Eos % (Auto) 0.8 % Baso % (Auto) 0.2 % Neut # (Auto) 6.78 H (1.4-6.5) K/uL Lymph # (Auto) 2.28 (1.2-3.4) K/uL [place] # (Auto) 0.52 (0.11-0.59) K/uL Eos # (Auto) 0.08 (0-0.5) K/uL Baso # (Auto) 0.02 (0-0.2) K/uL Immature Gran # (Auto) 0.02 (0.00-0.02) K/uL PT (9.0-12.0) Seconds INR (0.9-1.1) Sodium (136-145) mmol/L Potassium (3.5-5.1) mmol/L Chloride (98-107) mmol/L Carbon Dioxide (21-32) mmol/L Anion Gap (3-11) BUN (7-18) mg/dl Creatinine (0.6-1.4) mg/dl Est Cr Clr Drug Dosing ml/min Est GFR ( Amer) ml/min Est GFR (Non-Af Amer) ml/min BUN/Creatinine Ratio (10-20) Glucose (70-99) mg/dl Calcium (8.5-10.1) mg/dl Total Bilirubin (0.2-1) mg/dl AST (15-37) U/L ALT (12-78) U/L Alkaline Phosphatase (45-117) U/L Troponin I (0-0.045) ng/ml Total Protein (6.4-8.2) gm/dl Albumin (3.4-5.0) gm/dl Globulin (2.5-4.0) gm/dl Albumin/Globulin Ratio (0.9-2) Lipase (73-393) U/L Urine Color Red Urine Appearance Cloudy A (Clear) Urine pH 6.5 (4.5-7.5) Ur Specific [place] 1.020 (1.000-1.030) Urine Protein 2+ H (Negative) Urine Glucose (UA) Negative (Negative) Urine Ketones Trace H (Negative) Urine Blood 2+ H (Negative) Urine Nitrite Negative (Negative) Urine Bilirubin Negative (Negative) Urine Urobilinogen Negative (Negative) Ur Leukocyte Esterase Negative (Negative) Urine RBC >30 H (0-4) /hpf Urine WBC 0-5 (0-5) /hpf Ur Epithelial Cells 0-5 (0-5) /lpf Urine Bacteria Negative (Negative) Hyaline Casts 0-5 (0-5) /lpf COVID-19 Eval Order SARS-CoV-2 (PCR) (Negative) (1) Abdominal pain Abdominal location: epigastric Qualified Code(s): R10.13 - Epigastric pain
[2021-01-24] MEDS ORDERED: TAMSULOSIN HCL 0.4 MG CAP PO SCH (09:00)
--- NOTE | 2021-01-24 09:59 | Anesthesiology Consultation ---
Date of Service January 24, 2021 Assessment & Plan ASA ASA4 Proposed Anesthesia Anesthesia Type: MAC Risk / Benefits Reviewed With: PT / POA / Parent / Guardian, Accepts Plan and Informed Consent Obtained History Surgery Operation Date: 01/24/21 16:45 Proposed Procedures p Esophagogastroduodenoscopy Dr. Kendell Rdz MD Height/Weight Height: 6 ft Weight: 78.7 kg Allergies Allergy/AdvReac Type Severity Reaction Status Date / Time No Known Allergies Allergy Verified 01/24/21 09:46 Medications Home Medications Medication Instructions Recorded Confirmed Last Taken gabapentin 300 mg capsule 300 mg PO TID 01/23/21 01/23/21 01/23/21 (Neurontin) hydrocodone 5 mg-acetaminophen 325 1 tab PO DAILY 01/23/21 01/23/21 Unknown mg tablet [id number] 1 cap PO DIRECTED 01/23/21 01/23/21 01/23/21 12,000-38,000-60,000 unit capsule,delayed rel (Creon) sucralfate 1 gram tablet (Carafate) 1 g PO TID 01/23/21 01/23/21 01/23/21 tamsulosin 0.4 mg capsule (Flomax) 0.4 mg PO QAM 01/23/21 01/23/21 01/23/21 Active Medications Generic Name Dose Route Start Last Admin Trade Name Freq PRN Reason Stop Dose Admin Lipase/Protease/Amylase 1 cap 01/24/21 08:00 01/24/21 08:30 Pancreaze (Lipase 10,500u) Cap PO 02/23/21 07:59 Not Given TIDM BONI Gabapentin 300 mg 01/23/21 22:23 01/24/21 08:31 Gabapentin 300 Mg Cap PO 02/22/21 22:22 300 mg TID BONI Administration Pantoprazole Sodium 40 mg/ 100 mls @ 20 mls/hr 01/23/21 16:38 01/24/21 04:34 Dextrose IV 02/22/21 16:37 8 mg/hr Q5H BONI 20 mls/hr Administration 8 MG/HR Morphine Sulfate 2 mg 01/23/21 17:40 01/23/21 20:23 Morphine Sulfate 2 Mg/Ml Carp IV 02/06/21 17:39 2 mg Q30M PRN Administration Chest Pain Sucralfate 1 gm 01/23/21 22:23 01/24/21 08:32 Sucralfate 1 Gm Tab PO 02/22/21 22:22 1 gm TID BONI Administration Tamsulosin HCl 0.4 mg 01/24/21 09:00 01/24/21 08:32 Tamsulosin Hcl 0.4 Mg Cap PO 02/23/21 08:59 0.4 mg QAM BONI Administration NPO Date Last Intake of Fluids: 01/23/21 Time Last Intake of Fluids: 08:00 Last Intake of Fluids Comment: sips with meds Date Last Intake of Solids: 01/22/21 Time Last Intake of Solids: 08:30 Last Intake of Solids Comment: breakfast yesterday morning Past Medical History Medical History BPH (benign prostatic hyperplasia) Chemotherapy-induced neuropathy Pancreatic cancer Dx in 2018, underwent Whipple and chemo (completed in 2019) Exercise / Class Metabolic Activity II 4-5 Yardwork/Stairs/Walk up hill Past Surgical History Surgical History History of arthroscopy of shoulder x 2 History of Whipple procedure Past Anesthesia History No Hx of Anesthesia Complications and No Family Hx of Anesthesia Complications History of PONV No Hx of PONV and No Hx of Motion Sickness Social History Smoking Status: Current every day smoker tobacco type: cigarettes Do You Dip or Chew Tobacco: No Hx Alcohol Use: No Hx Substance Use: No Review of Systems denies fever/cough/ colds/ chest pain/ SOB/ PATRICE denies PATRICE Physical Exam Vital Signs Last Vital Signs Temp 37.7 C H 01/24/21 09:47 Pulse 61 01/24/21 09:47 Resp 18 01/24/21 09:47 BP 145/87 H 01/24/21 09:47 Pulse Ox 98 01/24/21 09:47 ENMT Mouth: no TMJ abnormality and no dentition abnormality Thyromental Distance: > or= 3.5 Finger Breadths Mallampati Class: II Neck neck extension not limited Respiratory normal respiratory effort; no respiratory distress Auscultation: lungs clear to auscultation bilaterally Cardiovascular Rate/Rhythm: regular rate and regular rhythm Neurologic moves all extremities Psychiatric Orientation: alert and oriented x 3 Testing Laboratory Results 01/24/21 07:09 01/24/21 07:09 PT 10.3 Seconds (9.0-12.0) 01/23/21 12:19 INR 1.0 (0.9-1.1) 01/23/21 12:19 Urine Color Red 01/23/21 11:15 Urine Appearance Cloudy (Clear) A 01/23/21 11:15 Urine pH 6.5 (4.5-7.5) 01/23/21 11:15 Ur Specific [place] 1.020 (1.000-1.030) 01/23/21 11:15 Urine Protein 2+ (Negative) H 01/23/21 11:15 Urine Glucose (UA) Negative (Negative) 01/23/21 11:15 Urine Ketones Trace (Negative) H 01/23/21 11:15 Urine Nitrite Negative (Negative) 01/23/21 11:15 Ur Leukocyte Esterase Negative (Negative) 01/23/21 11:15 Urine RBC >30 /hpf (0-4) H 01/23/21 11:15 Urine WBC 0-5 /hpf (0-5) 01/23/21 11:15 Ur Epithelial Cells 0-5 /lpf (0-5) 01/23/21 11:15
[2021-01-24] MEDS ORDERED: PROPOFOL IV EMULSION 10 MG/ML 20 ML VIAL IV ONE ×2 (10:03→10:28)
[2021-01-24] MEDS ORDERED: LIDOCAINE 2% 2 ML VIAL/AMP(20MG/ML) INFIL ONE ×2 (10:03→10:32)
--- NOTE | 2021-01-24 10:31 | GI REPORT ---
Patient Name: Germán Kong Procedure Date: 01/24/2021 10:03 AM Date of : 1965 Admit Type: Inpatient Age: 55 Gender: Male Attending MD: Adina Rdz M.d. Procedure: Upper GI endoscopy Providers: Adina Rdz M.d. Referring MD: Richie Carlos Md Indications: Epigastric abdominal pain Medicines: Propofol per Anesthesia, Lidocaine Complications: No immediate complications. Estimated Blood Loss: Estimated blood loss: none. Procedure: Pre-Anesthesia Assessment: - Patient identification and proposed procedure were verified prior to the procedure by the physician, the nurse and the anesthesiologist. The procedure was verified in the pre-procedure area. - Prior to the procedure, a History and Physical was performed, and patient medications, allergies and sensitivities were reviewed. The patient's tolerance of previous anesthesia was reviewed. - The risks and benefits of the procedure and the sedation options and risks were discussed with the patient. All questions were answered and informed consent was obtained. After obtaining informed consent, the endoscope was passed under direct vision. Throughout the procedure, the patient's blood pressure, pulse, and oxygen saturations were monitored continuously. The Endoscope was introduced through the mouth and advanced to the jejunum. The upper GI endoscopy was accomplished without difficulty. The patient tolerated the procedure well. Findings: The examined esophagus appeared normal. The Z-line appeared regular. Evidence of a patent Billroth II gastrojejunostomy was found. The gastrojejunal anastomosis was characterized by healthy appearing mucosa without evidence of narrowing, ulceration, or active inflammation. Biopsies were taken with a cold forceps for Helicobacter pylori testing. The examined jejunum appeared normal. Impression: - Normal esophagus. - Z-line regular. - Patent Billroth II gastrojejunostomy was found, characterized by healthy appearing mucosa. Biopsied. - Normal examined jejunum. Recommendation: - Await pathology results. - Consider Carafate 1 gram qid for 28 days and 40 mg PPI daily (Prilosec or Protonix). Miriam Garza M.d. 01/24/2021 10:31:10 AM This report has been signed electronically. Note Initiated On: 01/24/2021 10:03 AM Number of Addenda: 0 I attest to the content of the Intraoperative Record and orders documented therein, exceptions below {[id number]}
--- NOTE | 2021-01-24 10:45 | Anesthesiology Progress Note ---
Date of Service January 24, 2021 Anesthesia Post Procedure Vital Signs Vital Signs: Temp Pulse Pulse Resp BP BP BP 01/24/21 10:30 37.4 C 61 16 119/67 01/24/21 09:47 37.7 C H 61 18 145/87 H 01/24/21 07:00 36.7 C 59 L 18 143/72 H 01/24/21 04:00 37.0 C 50 L 20 132/76 01/24/21 00:21 53 L 01/23/21 22:29 68 01/23/21 22:23 36.8 C 77 16 127/71 01/23/21 20:30 58 L 21 145/77 H 01/23/21 20:00 54 L 19 135/59 L 01/23/21 19:30 70 24 131/83 01/23/21 19:00 54 L 20 146/80 H 01/23/21 18:58 54 L 16 152/79 H 01/23/21 18:30 62 21 152/79 H 01/23/21 18:00 58 L 17 147/84 H 01/23/21 17:30 61 17 01/23/21 17:00 61 16 01/23/21 16:30 57 L 16 01/23/21 16:02 54 L 16 01/23/21 15:49 54 L 16 130/79 01/23/21 15:31 56 L 19 130/78 01/23/21 15:00 54 L 17 128/74 01/23/21 14:30 54 L 19 141/77 H 01/23/21 14:14 54 L 14 160/83 H 01/23/21 14:00 62 19 160/83 H 01/23/21 13:31 57 L 16 150/84 H 01/23/21 13:00 58 L 18 163/88 H 01/23/21 12:31 62 24 152/88 H 01/23/21 12:00 52 L 18 139/85 01/23/21 11:48 68 65 14 151/84 H 01/23/21 10:56 36.6 C 79 18 137/84 Pulse Ox 01/24/21 10:30 98 01/24/21 09:47 98 01/24/21 07:00 97 01/24/21 04:00 96 01/24/21 00:21 01/23/21 22:29 01/23/21 22:23 97 01/23/21 20:30 97 01/23/21 20:00 97 01/23/21 19:30 99 01/23/21 19:00 96 01/23/21 18:58 97 01/23/21 18:30 97 01/23/21 18:00 98 01/23/21 17:30 98 01/23/21 17:00 99 01/23/21 16:30 98 01/23/21 16:02 98 01/23/21 15:49 98 01/23/21 15:31 97 01/23/21 15:00 97 01/23/21 14:30 97 01/23/21 14:14 98 01/23/21 14:00 100 01/23/21 13:31 100 01/23/21 13:00 99 01/23/21 12:31 98 01/23/21 12:00 98 01/23/21 11:48 99 01/23/21 10:56 98 Pain Intensity Pelvic: Pain Intensity: 7 Transfer of Care Handoff Completed per policy Notes Mental Status: alert / awake / arousable and participated in evaluation Patient Amnestic to Procedure: Yes Nausea / Vomiting: adequately controlled Pain: adequately controlled Airway Patency, RR, SpO2: stable & adequate BP & HR: stable & adequate Hydration State: stable & adequate Anesthetic Complications: no major complications apparent and Pt Satisfied with anesthetic care
--- NOTE | 2021-01-24 11:23 | Hospitalist Progress Note ---
Date of Service January 24, 2021 Assessment & Plan (1) GI bleed: Plan: Acute GI bleed: -S/P EGD:Normal esophagus. Z-line regular. Patent Billroth II gastrojejunostomy was found, characterized by healthy appearing mucosa. Biopsied. Normal examined jejunum. -Pathology pending to R/O H.Pylori -CT ABD:There is focal thickening and mild inflammatory change at the gastrojejunostomy anastomosis and proximal jejunostomy loop. No perforation or abscess identified. This could represent a nonspecific gastroenteritis or underlying ulcer disease. Minimal inflammatory change adjacent to the pancreatic tail could represent a mild acute on chronic pancreatitis. Recommend correlation with pancreatic enzymes. Mild fullness within the bilateral renal collecting systems without milly hydronephrosis. This remains unchanged. Prior Whipple procedure. The pancreatic duct stent in position. No change in the mild mesenteric lymphadenopathy. -Normal Lipase -Continue Carafate, PPI -Appreciate GI Input Hematuria: Unclear etiology Hb stable Appreciate Urology Input Needs follow-up with urology as outpatient for cystoscopy H/O Pancreatic cancer: Completed treatment in 2019. Continues to follow regularly with hem/onc for observation/imaging Continue Creon for pancreatic insufficiency Chemotherapy-induced neuropathy: Continue outpatient gabapentin BPH (benign prostatic hyperplasia): Continue tamsulosin DVT Px: SCDs Admission and Anticipated Discharge Date Admission Date: January 23, 2021 Subjective Patient is seen and examined at bedside Had EGD earlier today Discussed with GI today Abdominal pain completely resolved Denies nausea, vomiting, chest pain, dyspnea, dizziness Eager to get discharged Review of Systems Review of Systems: All systems reviewed & are unremarkable except as noted in Subjective Physical Exam Physical Exam: Physical Exam: Vitals signs as noted above General Appearance:Moderately built and nourished, no apparent distress Head: normocephalic, Atraumatic Eyes: normal inspection, EOMI Neck: supple, Trachea midline Respiratory/Chest: Normal breath sounds, CTA, No accessory muscle use Cardiovascular: S1, S2, No murmur Abdomen/GI:Soft, Non tender, Bowel sounds present Extremities/Musculoskeletal:normal inspection, no edema Neurologic/Psych:AAOX3, grossly no focal neurological deficits Skin: normal color, warm Results & Data Results & Data ([facility]) Vital Signs (Past 12 Hours) Vital Signs Temp Pulse Pulse Resp BP BP Pulse Ox 01/24/21 10:57 54 L 16 128/77 98 01/24/21 10:46 57 L 16 137/79 98 01/24/21 10:30 37.4 C 61 16 119/67 98 01/24/21 09:47 37.7 C H 61 18 145/87 H 98 01/24/21 07:00 36.7 C 59 L 18 143/72 H 97 01/24/21 04:00 37.0 C 50 L 20 132/76 96 01/24/21 00:21 53 L Laboratory Results Short CBC 01/24/21 Range/Units 07:09 WBC 8.72 (4.8-10.8) K/uL Hgb 14.2 (14.0-18.0) g/dL Hct 42.1 (42-52) % Plt Count 163 (130-400) K/uL [facility] 01/24/21 07:09 Sodium 143 Potassium 3.6 Chloride 112 H Carbon Dioxide 26 BUN 12 Creatinine 0.66 Glucose 104 H Calcium 8.4 L (1) GI bleed GI bleed type/associated pathology: gastrojejunal ulcer Qualified Code(s): K28.4 - Chronic or unspecified gastrojejunal ulcer with hemorrhage
--- NOTE | 2021-01-24 16:49 | Discharge Summary ---
Date of Service January 24, 2021 Admission HPI Per Admitting Provider This is a 55 y/o male with a PMH of stage 1 pancreatic CA s/p Whipple procedure and chemotherapy, BPH, and chemotherapy-induced neuropathy presents to the ED today with worsening abdominal pain, melena, and new-onset hematuria. Since the Whipple procedure, pt notes episodes of incisional pain in the epigastric area about every other month, usually with associated dark stools. These typically last a few days to at most two weeks and resolve without specific intervention. However, his current episode of pain started about four weeks ago and has been more severe than any prior episode. He describes the pain as both burning and stabbing "like a knife" but without radiation. Pain may keep him up at night. He has not noticed that eating makes things any better or worse consistently although some foods, like cold milk or ice cream, may give him some transient relief. He has noted associated bloating and increased eructation. He has had dark green to black loose stools over the past two weeks although notes that this is improving over the past couple days though still not back to normal. Denies dysphagia or odynophagia. Over the past week, he has noted a loss of appetite with an associated 7 lb unintentional weight loss in the same time period. Overnight, he developed gross hematuria, which he denies ever experiencing previously. Because of the severe pain and the new hematuria, he decided to come to the ED for evaluation. He has been using hydrocodone for the abdominal pain without significant relief. He occasionally takes ibuprofen 400 mg for joint pains (shoulders/elbows) but does not take consistently, nor has he been using it more frequently recently. Admission Exam Per Admitting Provider Physical Exam Constitutional: WD/WN, vitals as above no acute distress Eyes: PERRL, conjunctivae normal, anicteric sclerae ENMT: external ear and nose normal, oropharynx normal Neck: trachea midline Respiratory: no respiratory distress and no labored breathing Auscultation: lungs clear to auscultation bilaterally; no rales, no rhonchi and no wheezes Cardiovascular: Rate/Rhythm: regular rate and regular rhythm Heart Sounds: no gallop, no murmur and no cardiac rub Vessels: dorsalis pedis pulses present and radial pulses present; no carotid bruit Extremities: no calf tenderness and no pedal edema Gastrointestinal (Abdomen): Inspection/Auscultation: normal bowel sounds; abdomen not distended Percussion/Palpation: + abdomen tender (exquisitely tender in epigastric area, mild tenderness diffusely), + guarding (voluntary in epigastric region) and abdomen soft Musculoskeletal: Head/Neck/Chest: normocephalic, head atraumatic and neck supple Engineering Executive strength 4/5 on right, 5/5 on left. Plantar flexion/dorsiflexion 5/5 bilaterally Skin: no rashes, warm and dry no jaundice Neurologic: no focal motor deficits Speech / Cognition: normal speech Motor/Sensory: no tremor diminished sensation to light touch right > left fingers Psychiatric: A+Ox3, euthymic affect Principal Diagnosis Abdominal pain Hematuria GI bleed Discharge Data Allergies Allergy/AdvReac Type Severity Reaction Status Date / Time No Known Allergies Allergy Verified 01/24/21 09:46 Consultations 01/23/21 16:47 ED Decision to Admit Stat 01/23/21 22:23 Consult Gastroenterology Routine Consult Urology Routine Procedures Performed Operation Date: 01/24/21 16:45 Actual Procedures p EGD Biopsy Cytology - Adina Rdz MD Ordered Studies 01/23/21 11:28 CT abd pelvis oral and IV con Stat Hospital Course (1) GI bleed: Acute GI bleed: -S/P EGD:Normal esophagus. Z-line regular. Patent Billroth II gastrojejunostomy was found, characterized by healthy appearing mucosa. Biopsied. Normal examined jejunum. -Pathology pending to R/O H.Pylori -CT ABD:There is focal thickening and mild inflammatory change at the gastrojejunostomy anastomosis and proximal jejunostomy loop. No perforation or abscess identified. This could represent a nonspecific gastroenteritis or underlying ulcer disease. Minimal inflammatory change adjacent to the pancreatic tail could represent a mild acute on chronic pancreatitis. Recommend correlation with pancreatic enzymes. Mild fullness within the bilateral renal collecting systems without milly hydronephrosis. This remains unchanged. Prior Whipple procedure. The pancreatic duct stent in position. No change in the mild mesenteric lymphadenopathy. -Normal Lipase -Continue Carafate, PPI -Appreciate GI Input Hematuria: Unclear etiology Hb stable Appreciate Urology Input Needs follow-up with urology as outpatient for cystoscopy H/O Pancreatic cancer: Completed treatment in 2019. Continues to follow regularly with hem/onc for observation/imaging Continue Creon for pancreatic insufficiency Chemotherapy-induced neuropathy: Continue outpatient gabapentin BPH (benign prostatic hyperplasia): Continue tamsulosin DVT Px: SCDs Total Time Total Time Spent Total Time Spent (In Minutes): 35 minutes Discharge Plan Discharge Items Patient Disposition: Home - Self-Care Reason For Visit: GI BLEED, GROSS HEMATURIA Discharge Diagnosis: Abdominal pain Hematuria GI bleed Activity: Per Instructions section Exercise/Sports: Gradually increase as tolerated Non-emergency contact: Primary Care Provider, Comfort Advisor and Urologist Call non-emergency contact if: you have any medication questions, your symptoms worsen, your pain is not controlled, your pain is concerning for you and you have a fever Follow-up/Referrals: PCP,NO [Primary Care Provider] - Diet: Heart Healthy Addtl Attending Provider Instructions: Follow up with your Primary care physician in 1 week Follow-up with your showroom manager Dr. Rdz in 4 weeks Follow up with your Urologist for cystoscopy as outpatient Your biopsy results from endoscopy are pending at the time of discharge. Follow-up with your physician for results. Seek immediate medical attention if your symptoms reoccur or worsen Please take all medications as instructed on discharge list below. Please call if you have any questions or problems. You can reach a [facility] hospitalist on duty at [facility] 24 hours a day by calling [phone] Pending Studies at Discharge: Yes Studies:: Biopsy/Pathology Results Stand-Alone Forms: [facility], Smoking Cessation Medications and DC Order Prescriptions: New pantoprazole [Protonix] 40 mg tablet,delayed release (DR/EC) 40 mg PO DAILY Qty: 30 RF: 0 Continued hydrocodone-acetaminophen 5-325 mg tablet 1 tab PO DAILY RF: 0 tamsulosin [Flomax] 0.4 mg capsule 0.4 mg PO QAM RF: 0 gabapentin [Neurontin] 300 mg capsule 300 mg PO TID RF: 0 Creon 12,000-38,000 -60,000 unit capsule,delayed release(DR/EC) 1 cap PO DIRECTED RF: 0 Changed sucralfate [Carafate] 1 gram tablet 1 g PO QID 30 Days Qty: 120 RF: 0 Discharge Orders: Discharge Order (Routine); Ordered 01/24/21 Ordered By: Richie Carlos Admission Data Admit Date/Time: 01/23/21 17:01 Attending Provider: Richie Carlos Admit Provider: Gail Meier Primary Care Provider: PCP,NO Other Providers: Gail Meier ; Adina Rdz ; Rohith Gonsales Other Interventions: Discharge Summary Assessment (RN) Last Done: 01/24/21 11:57
== END 2021-01-24 13:06 | disposition home or self-care (01) ==
LOC: 2N 10:41 → ED 10:41 → SUATTDRO 17:01 → 2N 20:51

== ENCOUNTER 2025-02-04 20:53 | Inpatient (IN) ==
[2025-02-04] MEDS: SODIUM CHLORIDE 0.9% 500 ML IV ONE (21:06)
[2025-02-04] MEDS: METOCLOPRAMIDE HCL INJ 5 MG/ML 2 ML VIAL IV STA (21:06)
--- NOTE | 2025-02-04 21:19 | Emergency Department Note ---
Impression & Plan Bowel perforation, History of pancreatic cancer, Abdominal pain ED Provider Note Provider: Rajesh Taylor MD CHIEF COMPLAINT: Severe abdominal pain HISTORY OF PRESENT ILLNESS: Patient is a 59-year-old gentleman history of pancreatic cancer status post Whipple and chemo treatment prior to 2019, BPH, neuropathy presenting here today via ambulance from home. Patient with worsening severe abdominal pain today burning in the upper abdomen with pain in the lower abdomen states a little bit of pain in the genitals earlier today has resolved. No trauma. Breathing heavy and fast and for IV fentanyl and morphine for EMS did little to help with his pain. Has some chronic nausea he reports. Reports maybe a little bit of chronic swelling of his lower legs. Patient tachypneic and with significant discomfort stating pains never been as bad as this before. Pain does radiate to the back. No chest pain reported. PAST MEDICAL HISTORY: As noted above MEDICATIONS: Reviewed home medication list. PDMP reviewed showing evidence of hydrocodone prescription SOCIAL HISTORY: Lives at home with PHYSICAL EXAM: GENERAL: alert and oriented on stretcher appears tachypneic and discomfort Head: normocephalic and atraumatic EYES: No injection, discharge or icterus. EOMI. NECK: Trachea midline. Supple. ENT: Mucous membranes pink and moist. LUNGS: Airway patent. No retractions but tachypneic. Breath sounds clear HEART: Regular rate and rhythm. No chest wall tenderness ABDOMEN: Soft but with moderate diffuse tenderness. SKIN: Acyanotic, warm, dry, without rashes EXTREMITIES: Without swelling, tenderness or deformity NEUROLOGICAL: No focal deficits. No aphasia. No facial droop or slurred speech. Ambulatory. EK bpm sinus rhythm with PAC. Significant respiratory baseline artifact. No clear acute ST segment elevation or depression with a QTc of 475. CONTINUOUS CARDIAC MONITORING: was ordered and showed a heart rate of 70s-100s bpm in normal sinus rhythm/sinus tachycardia PDMP was checked without noted issue. Patient's laboratory studies and imaging reviewed. Differential includes Appendicitis, testicular torsion, infections, diverticulitis, UTI, obstruction, mesenteric ischemia, aortic pathology, inflammatory bowel disease, renal colic, PUD, pancreatitis, biliary pathology, hernia, volvulus, constipation, as well as other pathologies. IMPRESSION/MEDICAL DECISION MAKING: Given additional IV fentanyl here. Blood work obtained. [id number] blood work obtained and sent to CT scan of the abdomen pelvis for further evaluation of his abdominal pain given his complex history. Given some Reglan for nausea. Patient denies real chest pain and seems to be breathing heavy through the pain as opposed to short of breath. Not hypoxic here. Significant abdominal pain but it seems to be moving around by his report. Blood work here without significant anemia but with leukocytosis 16.4. No severe electrolyte abnormalities other than a mildly low calcium of 8.3. No significant transaminitis fairly bilirubin. Normal to slightly low lipase not indicate for hepatitis or pancreatitis. Lactate lactate minimally elevated at 2.8 receiving IV fluid bolus here but not hypotensive. Procalcitonin undetectably low. CT scan of the abdomen pelvis in discussion with the radiologist shows evidence of a small bowel perforation small loculated free air present. Immediately discussed with the general surgery PA on-call who evaluated the patient. Vancomycin and Zosyn ordered. and patient updated at bedside. General surgery team reviewed the case and plan to take the patient to the OR for ex lap given the bowel perforation. I discussed with the hospitalist team for admission purposes. Total of 1.5 L IV fluid ordered again broad-spectrum vancomycin and Zosyn been ordered. Patient still with some ongoing abdominal pain although is more comfortable than earlier. DIAGNOSIS: Small bowel perforation, abdominal pain, history of pancreatic cancer and Whipple procedure DISPOSITION: To the OR with general surgery. Discussed with the medicine team for admission. Critical Care I have personally spent 32 minutes of critical care time in the direct management of this patient. This includes bedside care, interpretation of diagnostic studies, and testing, discussion with consultants, patient, and family members, and other required patient management activities. These 32 minutes is in excess of all separately billable procedures. Past Med/Surg History Problem List Abdominal pain (Acute) Bowel perforation (Acute) Chemotherapy-induced neuropathy BPH (benign prostatic hyperplasia) GI bleed (Acute) Hematuria (Acute) History of pancreatic cancer (Acute) Obstructive jaundice (Acute) Medical History Pancreatic cancer Dx in 2018, underwent Whipple and chemo (completed in 2019) Surgical History History of arthroscopy of shoulder x 2 History of Whipple procedure Social History Smoking Status: Current every day smoker Tobacco Type: Cigarettes Do You Dip or Chew Tobacco: No; Hx Alcohol Use: No Hx Substance Use: No Preferred Language: Monegasque Communication Ability: Effective Match Maker Required: No Beliefs That Will Affect Care: None Current Living Situation: Spouse Feels Safe at Home: Yes Allergies Allergies Allergy/AdvReac Type Severity Reaction Status Date / Time No Known Allergies Allergy Verified 02/04/25 22:27 Home Meds Home Medications Medication Instructions Recorded Confirmed tamsulosin 0.4 mg capsule (Flomax) 0.8 mg PO QAM 01/23/21 02/04/25 buspirone 10 mg tablet 10 mg PO BID 10/05/24 02/04/25 gabapentin 600 mg tablet 600 mg PO TID 10/05/24 02/04/25 hydrocodone 10 mg-acetaminophen 1 tab PO DAILY 10/05/24 02/04/25 325 mg tablet omeprazole 20 mg capsule,delayed 20 mg PO DAILY 10/05/24 02/04/25 release pioglitazone 30 mg tablet 30 mg PO DAILY 10/05/24 02/04/25 Results & Data (ED) Vital Signs Vital Signs - 24 hr 02/04/25 21:00 02/04/25 21:15 02/04/25 21:17 Pulse Rate 102 H 79 Pulse Rate from SpO2 Sensor Respiratory Rate 26 H 35 H Blood Pressure 159/109 H 191/125 H Blood Pressure Mean 125 143 Blood Pressure Position Lying Pulse Oximetry 100 Oxygen Delivery Method Room Air Sepsis Recent Fever Within 48 Hours No Sepsis New/Unexplained Change in Mental Status No Sepsis Action Taken by Nursing Physician Notified 02/04/25 21:17 02/04/25 21:21 02/04/25 21:31 Pulse Rate 103 H Pulse Rate from SpO2 Sensor Respiratory Rate 27 H Blood Pressure 191/125 H 189/119 H Blood Pressure Mean 143 128 Blood Pressure Position Pulse Oximetry Oxygen Delivery Method Sepsis Recent Fever Within 48 Hours Sepsis New/Unexplained Change in Mental Status Sepsis Action Taken by Nursing 02/04/25 21:31 02/04/25 21:31 02/04/25 21:50 Pulse Rate 85 Pulse Rate from SpO2 Sensor Respiratory Rate 26 H Blood Pressure 189/119 H 189/119 H Blood Pressure Mean 128 128 Blood Pressure Position Pulse Oximetry 97 Oxygen Delivery Method Sepsis Recent Fever Within 48 Hours Sepsis New/Unexplained Change in Mental Status Sepsis Action Taken by Nursing 02/04/25 21:54 02/04/25 22:09 02/04/25 22:24 Pulse Rate 92 H 78 90 Pulse Rate from SpO2 Sensor 92 H 79 89 Respiratory Rate 19 20 17 Blood Pressure 154/86 H Blood Pressure Mean 108 Blood Pressure Position Pulse Oximetry 96 96 96 Oxygen Delivery Method Sepsis Recent Fever Within 48 Hours Sepsis New/Unexplained Change in Mental Status Sepsis Action Taken by Nursing 02/04/25 22:30 02/04/25 22:30 02/04/25 22:36 Pulse Rate 82 Pulse Rate from SpO2 Sensor 83 Respiratory Rate 22 Blood Pressure 161/91 H 161/91 H Blood Pressure Mean 133 133 Blood Pressure Position Pulse Oximetry 98 Oxygen Delivery Method Sepsis Recent Fever Within 48 Hours Sepsis New/Unexplained Change in Mental Status Sepsis Action Taken by Nursing 02/04/25 23:01 02/04/25 23:12 02/04/25 23:30 Pulse Rate 89 88 Pulse Rate from SpO2 Sensor Respiratory Rate 20 19 Blood Pressure 176/104 H 165/94 H Blood Pressure Mean 143 131 Blood Pressure Position Pulse Oximetry 98 96 Oxygen Delivery Method Room Air Sepsis Recent Fever Within 48 Hours Sepsis New/Unexplained Change in Mental Status Sepsis Action Taken by Nursing Laboratory Data 02/04/25 21:00 02/04/25 21:00 Lab Results 02/04/25 02/04/25 Range/Units 21:00 21:16 WBC 16.43 H (4.8-10.8) K/ul RBC 4.85 (4.70-6.10) M/uL Hgb 12.9 L (14.0-18.0) g/dl Hct 38.8 L (42.0-52.0) % MCV 80.0 (80.0-100.0) fL MCH 26.6 (25.0-34.0) pg MCHC 33.2 (32.0-36.0) g/dL RDW Std Deviation 46.6 H (36.4-46.3) fL RDW Coeff of Pepe 16.2 H (11.5-14.5) % Plt Count 262 (130-400) K/uL MPV 11.2 (9.4-12.4) fL Immature Gran % (Auto) 0.4 % Neut % (Auto) 68.9 % Lymph % (Auto) 23.2 % [place] % (Auto) 6.6 % Eos % (Auto) 0.5 % Baso % (Auto) 0.4 % Neut # (Auto) 11.31 H (1.40-6.50) K/uL Lymph # (Auto) 3.81 H (1.20-3.40) K/uL [place] # (Auto) 1.09 H (0.11-0.59) K/uL Eos # (Auto) 0.08 (0.00-0.50) K/uL Baso # (Auto) 0.07 (0.00-0.20) K/uL Immature Gran # (Auto) 0.07 (0.01-0.20) K/uL PT 10.2 (9.0-12.0) Seconds INR 0.9 (0.9-1.1) Sodium 138 (136-145) mmol/L Potassium 3.6 (3.5-5.1) mmol/L Chloride 104 (98-107) mmol/L Carbon Dioxide 26 (21-32) mmol/L Anion Gap 8 (3-11) BUN 12 (6-23) mg/dl Creatinine 0.69 (0.6-1.4) mg/dl Est Cr Clr Drug Dosing 112.8 ml/min eGFR 107.94 BUN/Creatinine Ratio 17.4 (10-20) Glucose 174 H (70-99(Fasting)) mg/dl Lactate 2.8 H* (0.4-2.0) mmol/L Calcium 8.3 L (8.6-10.3) mg/dl Total Bilirubin 0.2 (0.2-1.0) mg/dl AST 27 (13-39) U/L ALT 29 (7-52) U/L Alkaline Phosphatase 79 (34-104) U/L Troponin I High Sens 4.4 (0-20) pg/ml Total Protein 6.2 (6.0-8.3) gm/dl Albumin 3.1 L (3.4-5.0) gm/dl Globulin 3.1 (2.5-4.0) gm/dl Albumin/Globulin Ratio 1.0 (0.9-2) Lipase 3 L (11-82) U/L Procalcitonin < 0.02 (0-0.5) ng/ml SARS-CoV-2, RNA, NAAT NEGATIVE (NEGATIVE) Administered Medications Vancomycin HCl 1,250 mg/ (Sodium Chloride) 525 mls @ 200 mls/hr IV NOW ONE Stop: 02/05/25 02:05 Last Admin: 02/05/25 00:26 Dose: 200 mls/hr Documented By: JESSENIA Sodium Chloride (Nss) 1,000 mls @ 999 mls/hr IV .Q1H1M ONE Stop: 02/05/25 00:44 Last Admin: 02/04/25 23:49 Dose: 999 mls/hr Documented By: AALIYAH Discontinued Medications Fentanyl Citrate (Fentanyl Citrate Pf 100 Mcg/2 Ml Vial) 100 mcg IV NOW STA Stop: 02/04/25 21:01 Last Admin: 02/04/25 21:06 Dose: 100 mcg Documented By: QGV Hydromorphone HCl (Hydromorphone Inj 0.5 Mg/0.5 Ml Syr) 0.5 mg IV NOW STA Stop: 02/04/25 22:41 Last Admin: 02/04/25 22:43 Dose: 0.5 mg Documented By: PEDRO LUIS Sodium Chloride (Nss) 500 mls @ 999 mls/hr IV .Q31M ONE Stop: 02/04/25 21:30 Last Infusion: 02/04/25 22:41 Dose: Infused Documented By: PEDRO LUIS Admin: 02/04/25 21:06 Dose: 999 mls/hr Documented By: QGV Piperacillin Sod/Tazobactam Sod (Zosyn) 4.5 gm in 100 mls @ 200 mls/hr IV NOW ONE; Protocol Stop: 02/04/25 23:57 Last Admin: 02/04/25 23:49 Dose: 200 mls/hr Documented By: AALIYAH Ioversol (Optiray 320 100ml) 89 ml IV ONCE ONE Stop: 02/04/25 21:43 Last Admin: 02/04/25 21:42 Dose: 89 ml Documented By: BOBO Metoclopramide HCl (Metoclopramide Hcl Inj 5 Mg/Ml 2 Ml Vial) 10 mg IV NOW STA Stop: 02/04/25 21:01 Last Admin: 02/04/25 21:06 Dose: 10 mg Documented By: QGV Imaging Data Radiologist's Impression: Abdomen/Pelvis CT 02/04/25 21:00 CR Exam(s): CT ABDOMEN + PELVIS With Contrast IV Amt: 89 ml optiray 320 EXAM: CT Abdomen and Pelvis With Intravenous Contrast CLINICAL HISTORY: Severe Pain mid to lower abdomen, hx whipple. TECHNIQUE: Axial computed tomography images of the abdomen and pelvis with intravenous contrast. CTDI is 12 mGy and DLP is 605 mGy-cm. Automated exposure control was utilized for the study. A dose lowering technique was utilized adhering to the principles of ALARA. CONTRAST: Patient received 89 ml optiray 320 of IV contrast COMPARISON: No relevant prior studies available. FINDINGS: Lung bases: Unremarkable. No mass. No consolidation. ABDOMEN: Liver: Unremarkable. No mass. Gallbladder and bile ducts: Cholecystectomy. No ductal dilation. Pancreas: Unremarkable. No mass. No ductal dilation. Spleen: Unremarkable. No splenomegaly. Adrenals: Unremarkable. No mass. Kidneys and ureters: Unremarkable. No solid mass. No hydronephrosis. Stomach and bowel: There is marked thickening of the wall of the small bowel in the left abdomen with perforation best seen on axial series image 39. No obstruction. PELVIS: Appendix: No findings to suggest acute appendicitis. Bladder: Unremarkable. No mass. Reproductive: Nonspecific prostate gland enlargement. ABDOMEN and PELVIS: Intraperitoneal space: Mild free fluid in the abdomen and pelvis is nonspecific. No free air. Bones/joints: There are degenerative changes of the spine. No acute fracture. No dislocation. Soft tissues: Unremarkable. Vasculature: Mild atherosclerosis. No aneurysm. Lymph nodes: Unremarkable. No enlarged lymph nodes. IMPRESSION: 1. There is marked thickening of the wall of the small bowel in the left abdomen with perforation. Surgical consultation is recommended. 2. Nonspecific prostate gland enlargement. Communications: Call Doctor Above results Electronically signed by: Yahaira Mckeon MD 02/04/25 23:26 PM Discharge Plan Visit Data Chief Complaint: Abdominal Pain Stated Complaint: Abdominal Pain ED Provider: Rajesh Taylor Discharge Problem: Bowel perforation, History of pancreatic cancer, Abdominal pain Patient Disposition: Being Evaluated by Hospitalist Condition: Critical Forms Stand Alone Forms: [facility], Important Visit Information Prescriptions Prescriptions: No Action tamsulosin [Flomax] 0.4 mg capsule 0.8 mg PO QAM gabapentin 600 mg tablet 600 mg PO TID hydrocodone-acetaminophen 10-325 mg tablet 1 tab PO DAILY buspirone 10 mg tablet 10 mg PO BID omeprazole 20 mg capsule,delayed release(DR/EC) 20 mg PO DAILY pioglitazone 30 mg tablet 30 mg PO DAILY Referrals Referrals: Sukhjinder Buck MD [Primary Care Provider] -
[2025-02-04 21:21] LABS: Hematocrit (blood only) 38.8 % (42.0-52.0); Hemoglobin 12.9 g/dl (14.0-18.0); Immature Granulocytes # (auto) 0.07 K/uL (0.01-0.20); Immature Granulocytes % (auto) 0.4 %; Mean Corpuscular Hemoglobin 26.6 pg (25.0-34.0); Mean Corpuscular Volume 80.0 fL (80.0-100.0); Platelet Count 262 K/uL (130-400); RDW Standard Deviation 46.6 fL (36.4-46.3); Red Blood Count 4.85 M/uL (4.70-6.10); White Blood Count 16.43 K/ul (4.8-10.8)
[2025-02-04 21:38] LABS: Alanine Aminotransferase 29.0 U/L (7-52); Albumin Globulin Ratio 1.0 (0.9-2); Alkaline Phosphatase 79.0 U/L (34-104); Anion Gap 8.0 (3-11); Bilirubin,Total 0.2 mg/dl (0.2-1.0); Blood Urea Nitrogen 12.0 mg/dl (6-23); Calcium 8.3 mg/dl (8.6-10.3); Carbon Dioxide 26.0 mmol/L (21-32); Chloride 104.0 mmol/L (98-107); Creatinine Clr Calc Pharmacy 112.8 ml/min; Globulin 3.1 gm/dl (2.5-4.0); Glucose 174.0 mg/dl (70-99(Fasting)); Lipase 3.0 U/L (11-82); Potassium 3.6 mmol/L (3.5-5.1); Sodium 138.0 mmol/L (136-145); Total Protein 6.2 gm/dl (6.0-8.3)
[2025-02-04] MEDS: OPTIRAY 320 100ml IV ONE (21:42)
[2025-02-04 21:51] LABS: INR 0.9 (0.9-1.1); Prothrombin Time 10.2 Seconds (9.0-12.0)
[2025-02-04] MEDS: HYDROmorphone INJ 0.5 MG/0.5 ML SYR IV STA (22:43)
--- NOTE | 2025-02-04 23:27 | CT Scan Report ---
Exam(s): CT ABDOMEN + PELVIS With Contrast IV Amt: 89 ml optiray 320 EXAM: CT Abdomen and Pelvis With Intravenous Contrast CLINICAL HISTORY: Severe Pain mid to lower abdomen, hx whipple. TECHNIQUE: Axial computed tomography images of the abdomen and pelvis with intravenous contrast. CTDI is 12 mGy and DLP is 605 mGy-cm. Automated exposure control was utilized for the study. A dose lowering technique was utilized adhering to the principles of ALARA. CONTRAST: Patient received 89 ml optiray 320 of IV contrast COMPARISON: No relevant prior studies available. FINDINGS: Lung bases: Unremarkable. No mass. No consolidation. ABDOMEN: Liver: Unremarkable. No mass. Gallbladder and bile ducts: Cholecystectomy. No ductal dilation. Pancreas: Unremarkable. No mass. No ductal dilation. Spleen: Unremarkable. No splenomegaly. Adrenals: Unremarkable. No mass. Kidneys and ureters: Unremarkable. No solid mass. No hydronephrosis. Stomach and bowel: There is marked thickening of the wall of the small bowel in the left abdomen with perforation best seen on axial series image 39. No obstruction. PELVIS: Appendix: No findings to suggest acute appendicitis. Bladder: Unremarkable. No mass. Reproductive: Nonspecific prostate gland enlargement. ABDOMEN and PELVIS: Intraperitoneal space: Mild free fluid in the abdomen and pelvis is nonspecific. No free air. Bones/joints: There are degenerative changes of the spine. No acute fracture. No dislocation. Soft tissues: Unremarkable. Vasculature: Mild atherosclerosis. No aneurysm. Lymph nodes: Unremarkable. No enlarged lymph nodes. IMPRESSION: 1. There is marked thickening of the wall of the small bowel in the left abdomen with perforation. Surgical consultation is recommended. 2. Nonspecific prostate gland enlargement. Communications: Call Doctor Above results Electronically signed by: Yahaira Mckeon MD 02/04/25 23:26 PM
[2025-02-04] MEDS ORDERED: VANCOMYCIN CONSULT ACTIVE PRN (23:28)
[2025-02-04] MEDS: PIPERACILLIN/TAZOBACTAM 4.5 GM/100 ML BAG IV ONE (23:49)
[2025-02-04] MEDS: SODIUM CHLORIDE 0.9% 1,000 ML IV ONE (23:49)
--- NOTE | 2025-02-05 00:09 | Surgery Consultation ---
Date of Consultation February 05, 2025 Assessment & Plan (1) Bowel perforation: I discussed with the treating clinician in the emergency department and surgical plans are as follows: Will have the patient admitted to the hospital service We will keep the patient n.p.o. Will hydrate the patient with intravenous fluidshe is receiving a 1 L bolus of normal saline solution and then later on maintenance fluids at 125 cc an hour for the present time Broad-spectrum antibiotics in form of vancomycin and Zosyn have been initiated and will continue Due to the findings on CT scan and on physical exam will take the patient for exploratory surgeryI will obtain consent for the patient to undergo explorator y laparotomy with possible bowel resection, possible colostomy, and surgery as needed. I explained to the patient and his who was present at bedside that does feel that there is part of his abdominal viscus that is perforated but is unclear of exactly where the perforation is and therefore exploratory surgery will be needed. Will check a preoperative chest x-ray Additional recommendations will be forthcoming based on operative findings and his clinical course and recovery thereafter Will use SCDs for DVT prevention, no chemical means due to planned surgery as above. +peritonitis. +perforation,likely small bowel. ? etiology. discussed risks and options ( bleeding/infection/injury to another organ/blood clots /etc...). questions answered. will proceed emergently with exploratory laparotomy /surgery as needed. History of Present Illness Reason for Consultation: Small bowel perforation History of Present Illness This is a 59-year-old male who presented to the emergency department secondary to abdominal pain. Patient states that he has been having abdominal pain for approximately 1 month. He notes that the pain is getting progressively worse over this time. So he finally presented to the emergency department. With his current pain he notes that the pain is generalized throughout his abdomen without any radiation or modifying factors. He denies any nausea or vomiting. He denies any fevers, shakes, or chills. His most recent oral intake was at approximately 3:00 PM on 02/04/2025. He currently does not take any anticoagulants. Patient does have a history of pancreatic cancer for which he underwent a Whipple procedure by Dr. Boykin in 2017 at [facility]. He did receive chemotherapy following this procedure which concluded in October 2018. 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 This was treated with antibiotics in form of Cipro and Flagyl and 1 month of anticoagulation (he no longer takes anticoagulation). Of note, the patient was admitted to [facility] in January 2021 secondary to a GI bleed. An EGD at this time showed the patient had evidence of a Billroth II gastrojejunostomy with a gastrojejunostomy anastomosis that appeared healthy without ulceration or inflammation. Since arrival to the emergency department today the patient did have labs and imaging which I independent reviewed. CT scan of the abdomen pelvis showed marked thickening of the wall of the small bowel in the left side of the abdomen with evidence of perforation however there is no gross free intraperitoneal air noted. Labs included a CBC with a white blood cell count was elevated 16.4. Hemoglobin and hematocrit were 12.9 and 38.8. Platelet count was normal. Coagulation studies showed an INR of 0.9. Chemistry profile showed sodium and potassium as well as the BUN and creatinine were normal. Lactic acid level was elevated at 2.8. There is no elevation of patient's LFTs. His lipase was not elevated. A COVID test was negative. At the time of my interview the patient was in no distress but did appear somewhat uncomfortable. Allergies Allergy/AdvReac Type Severity Reaction Status Date / Time No Known Allergies Allergy Verified 02/04/25 22:27 Home Medications Medication Instructions Recorded Confirmed Type tamsulosin 0.4 mg capsule (Flomax) 0.8 mg PO QAM 01/23/21 02/04/25 History buspirone 10 mg tablet 10 mg PO BID 10/05/24 02/04/25 History gabapentin 600 mg tablet 600 mg PO TID 10/05/24 02/04/25 History hydrocodone 10 mg-acetaminophen 1 tab PO DAILY 10/05/24 02/04/25 History 325 mg tablet omeprazole 20 mg capsule,delayed 20 mg PO DAILY 10/05/24 02/04/25 History release pioglitazone 30 mg tablet 30 mg PO DAILY 10/05/24 02/04/25 History Patient History Medical History Pancreatic cancer Dx in 2018, underwent Whipple and chemo (completed in 2019) Surgical History History of arthroscopy of shoulder x 2 History of Whipple procedure Social History Smoking Status: Current every day smoker Tobacco Type: Cigarettes Do You Dip or Chew Tobacco: No; Hx Alcohol Use: No Hx Substance Use: No Preferred Language: Syrian Communication Ability: Effective 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 Beliefs That Will Affect Care: None Current Living Situation: Spouse Feels Safe at Home: Yes Review of Systems Review of Systems: All systems reviewed & are unremarkable except as noted in HPI & below Physical Exam Constitutional: + thin and + cachectic; no acute distres s Eyes: no conjunctival abnormality ENMT: Ears: no hearing impairment and no external ear abnormality Oral mucosas dry Neck: trachea midline Respiratory: normal respiratory effort; no respiratory distress and no labored breathing Cardiovascular: Rate/Rhythm: regular rate and regular rhythm Gastrointestinal (Abdomen): Patient's abdomen is not distended but is rigid. Patient has generalized pain with palpation throughout his abdomen with associated rebound tenderness Musculoskeletal: No calf tenderness Skin: no rashes Neurologic: moves all extremities Psychiatric: A+Ox3, euthymic affect Results & Data Vital Signs (Past 12 Hours) Vital Signs Pulse Resp BP Pulse Ox O2 Del Method 02/04/25 23:30 88 19 165/94 H 96 Room Air 02/04/25 23:12 89 20 98 02/04/25 23:01 176/104 H 02/04/25 22:36 82 22 98 02/04/25 22:30 161/91 H 02/04/25 22:30 161/91 H 02/04/25 22:24 90 17 96 02/04/25 22:09 78 20 154/86 H 96 02/04/25 21:54 92 H 19 96 02/04/25 21:50 85 02/04/25 21:31 26 H 189/119 H 97 02/04/25 21:31 189/119 H 02/04/25 21:31 189/119 H 02/04/25 21:21 103 H 27 H 02/04/25 21:17 191/125 H 02/04/25 21:17 191/125 H 02/04/25 21:15 79 35 H 02/04/25 21:00 102 H 26 H 159/109 H 100 Room Air PG Care Time/CCT Total # of Minutes Spent Total Time Spent with Patient: Total time spent is greater than 50% in coordination of care (as documented) at patient's floor/unit and/or counseling patient: Coding Level of Care Code 22714 IN/OBS CONSULT LVL 5,80M Diagnoses Bowel perforation K63.1
[2025-02-05] MEDS: VANCOMYCIN HCL 1,250 MG in SODIUM CHLORIDE 0.9% 500 ML IV ONE (00:26)
--- NOTE | 2025-02-05 00:39 | Anesthesiology Consultation ---
Date of Service February 05, 2025 Assessment & Plan Chart Review Chart Review: Acceptable Risk for Surgery Consults Requested none History Surgery Operation Date: 02/05/25 00:30 Proposed Procedures p Bowel Resection - Albin Darnell DO Height/Weight Height: 6 ft Weight: 67.5 kg Allergies Allergy/AdvReac Type Severity Reaction Status Date / Time No Known Allergies Allergy Verified 02/04/25 22:27 Medications Home Medications Medication Instructions Recorded Confirmed Last Taken tamsulosin 0.4 mg capsule (Flomax) 0.8 mg PO QAM 01/23/21 02/04/25 02/04/25 buspirone 10 mg tablet 10 mg PO BID 10/05/24 02/04/25 02/04/25 08:00 gabapentin 600 mg tablet 600 mg PO TID 10/05/24 02/04/25 02/04/25 08:00 hydrocodone 10 mg-acetaminophen 1 tab PO DAILY 10/05/24 02/04/25 02/04/25 325 mg tablet omeprazole 20 mg capsule,delayed 20 mg PO DAILY 10/05/24 02/04/25 02/04/25 release pioglitazone 30 mg tablet 30 mg PO DAILY 10/05/24 02/04/25 02/04/25 Active Medications Generic Name Dose Route Start Last Admin Trade Name Freq PRN Reason Stop Dose Admin Vancomycin HCl 1,250 mg/ 525 mls @ 200 mls/hr 02/04/25 23:28 02/05/25 00:26 Sodium Chloride IV 02/05/25 02:05 200 mls/hr NOW ONE Administration Sodium Chloride 1,000 mls @ 999 mls/hr 02/04/25 23:44 02/04/25 23:49 Nss IV 02/05/25 00:44 999 mls/hr .Q1H1M ONE Administration Past Medical History Medical History Pancreatic cancer Dx in 2018, underwent Whipple and chemo (completed in 2019) Past Surgical History Surgical History History of arthroscopy of shoulder x 2 History of Whipple procedure Social History Smoking Status: Current every day smoker tobacco type: cigarettes Do You Dip or Chew Tobacco: No Hx Alcohol Use: No Hx Substance Use: No Physical Exam Vital Signs Last Vital Signs Pulse 86 02/05/25 00:00 Resp 21 02/05/25 00:00 BP 157/92 H 02/05/25 00:00 Pulse Ox 98 02/05/25 00:00 O2 Del Method Room Air 02/05/25 00:00 Testing Laboratory Results 02/04/25 21:00 02/04/25 21:00 PT 10.2 Seconds (9.0-12.0) 02/04/25 21:00 INR 0.9 (0.9-1.1) 02/04/25 21:00
[2025-02-05] MEDS ORDERED: ROCURONIUM BROMIDE 10 MG/ML 5 ML VIAL IV ONE (00:40)
[2025-02-05] MEDS ORDERED: PROPOFOL IV EMULSION 10 MG/ML 20 ML VIAL IV ONE (00:40)
[2025-02-05] MEDS ORDERED: LIDOCAINE 2% 2 ML VIAL/AMP(20MG/ML) INFIL ONE (00:41)
[2025-02-05] MEDS ORDERED: ONDANSETRON INJ 2 MG/ML 2 ML VIAL ONE (00:41)
--- NOTE | 2025-02-05 01:00 | History & Physical Report ---
Date of Service February 05, 2025 Assessment & Plan (1) Bowel perforation: Plan: 59-year-old male with past medical history significant for type 2 diabetes, history of malignant neoplasm of head of pancreas, history of splenic vein thrombosis, history of paralysis of left common peroneal nerve, degenerative disc disease, chemotherapy-induced neuropathy, chronic bilateral low back pain, thyroglossal duct cyst, general anxiety disorder comes because of abdominal pain and found to have bowel perforation. Patient states ongoing abdominal pain for months but today the pain was very severe. And was nauseous. Earlier today had normal bowel movement. Denies any blood in the stools. Denies any fevers. Denies any chest pain. Having short of breath when the pain was severe. No headache. No sore throat or cough.Ran out of Flomax prescription about a week ago and having some difficulty micturating. Hemodynamics are okay. Patient was diagnosed with splenic vein thrombosis in September 2024 and he was transferred to [place] from [facility]. He was also treated for possible splenic infarct versus abscess with antibiotics. He was discharged on Eliquis. Also saw americo mcghee in October 2024 and was advised to continue Eliquis. But patient says he stopped Eliquis after 1 month of taking it because he could not afford it. Bowel perforation Lactic acid 2.8 WBC 16 LFTs okay Creatinine 0.6 Received Vanco and Zosyn and will be continued IV fluids Patient going to the OR soon Surgery on board History of malignant neoplasm of head of the pancreas Diagnosed in 02/16/2018 Received modified FOLFIRINOX Status post Whipple's procedure 2018 No evidence of recurrence Follows with yadiel Splenic vein thrombosis and splenic infarction 09/2024 Was placed on Eliquis During that time was also treated for possible splenic abscess with antibiotics Patient stopped eliquis after 1 month because he could not afford it Chemotherapy-induced neuropathy Gabapentin Restart when able to GERD On omeprazole Placed on IV Protonix Diabetes Hold p.o. meds Insulin sliding scale We will monitor BPH Patient states he ran out of prescription of Flomax about a week ago Having some difficulty micturition Will monitor for urinary retention Start on Flomax when able to General Anxiety disorder Will start on buspirone when able to DVT prophylaxis SCDs Disposition Telemetry Full code. History of Present Illness Chief Complaint: Bowel perforation Primary Care Provider: Sukhjinder Buck MD 59-year-old male with past medical history significant for type 2 diabetes, history of malignant neoplasm of head of pancreas, history of splenic vein thrombosis, history of paralysis of left common peroneal nerve, degenerative disc disease, chemotherapy-induced neuropathy, chronic bilateral low back pain, thyroglossal duct cyst, general anxiety disorder comes because of abdominal pain and found to have bowel perforation. Patient states ongoing abdominal pain for months but today the pain was very severe. And was nauseous. Earlier today had normal bowel movement. Denies any blood in the stools. Denies any fevers. Denies any chest pain. Having short of breath when the pain was severe. No headache. No sore throat or cough.Ran out of Flomax prescription about a week ago and having some difficulty micturating. Hemodynamics are okay. Patient was diagnosed with splenic vein thrombosis in September 2024 and he was transferred to [place] from [facility]. He was also treated for possible splenic infarct versus abscess with antibiotics. He was discharged on Eliquis. Also saw heme- onc in October 2024 and was advised to continue Eliquis. But patient says he stopped Eliquis after 1 month of taking it because he could not afford it. Past medical history. As mentioned above. Past surgical history. Colonoscopy. EGD. EGD with endoscopic ultrasound. Status post Whipple's procedure. Right shoulder arthroscopy. Social history. . Smoked 0.5 pack a day for 13.5 years. No alcohol use. Uses marijuana as per Gencia. Allergies Allergy/AdvReac Type Severity Reaction Status Date / Time No Known Allergies Allergy Verified 02/04/25 22:27 Home Medications Medication Instructions Recorded Confirmed Type tamsulosin 0.4 mg capsule (Flomax) 0.8 mg PO QAM 01/23/21 02/04/25 History buspirone 10 mg tablet 10 mg PO BID 10/05/24 02/04/25 History gabapentin 600 mg tablet 600 mg PO TID 10/05/24 02/04/25 History hydrocodone 10 mg-acetaminophen 1 tab PO DAILY 10/05/24 02/04/25 History 325 mg tablet omeprazole 20 mg capsule,delayed 20 mg PO DAILY 10/05/24 02/04/25 History release pioglitazone 30 mg tablet 30 mg PO DAILY 10/05/24 02/04/25 History Past Med/Surg History Problem List Abdominal pain (Acute) Bowel perforation (Acute) Chemotherapy-induced neuropathy BPH (benign prostatic hyperplasia) GI bleed (Acute) Hematuria (Acute) History of pancreatic cancer (Acute) Obstructive jaundice (Acute) Medical History Pancreatic cancer Dx in 2018, underwent Whipple and chemo (completed in 2019) Surgical History History of arthroscopy of shoulder x 2 History of Whipple procedure Social History Smoking Status: Current every day smoker Tobacco Type: Cigarettes Cigarettes Per Day: 1 pack; Do You Dip or Chew Tobacco: No; Hx Alcohol Use: Yes Hx Substance Use: Yes Preferred Language: Italian Communication Ability: Effective 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 ENT- oropharynx clear Neck- supple, no JVD. Lungs- clear to auscultation no wheezing or crackles Heart- regular rhythm; no murmur, no gallop. Abdomen- bowel sounds sluggish, diffuse tender and guarding, no distension Extremities- no pretibial edema, no erythema seen. Neuro- alert, oriented PERRL, no facial palsy; no dysarthria; moves extremities Results & Data Results & Data Vital Signs (Past 12 Hours) Vital Signs Pulse Resp BP Pulse Ox O2 Del Method 02/05/25 00:00 86 21 157/92 H 98 Room Air 02/04/25 23:30 88 21 165/94 H 97 Room Air 02/04/25 23:30 88 19 165/94 H 96 Room Air 02/04/25 23:12 89 20 98 02/04/25 23:01 176/104 H 02/04/25 22:36 82 22 98 02/04/25 22:30 161/91 H 02/04/25 22:30 161/91 H 02/04/25 22:24 90 17 96 02/04/25 22:09 78 20 154/86 H 96 02/04/25 21:54 92 H 19 96 02/04/25 21:50 85 02/04/25 21:31 26 H 189/119 H 97 02/04/25 21:31 189/119 H 02/04/25 21:31 189/119 H 02/04/25 21:21 103 H 27 H 02/04/25 21:17 191/125 H 02/04/25 21:17 191/125 H 02/04/25 21:15 79 35 H 02/04/25 21:00 102 H 26 H 159/109 H 100 Room Air Diagnostic Findings Laboratory Results WBC 16.43 K/ul (4.8-10.8) H 02/04/25 21:00 RBC 4.85 M/uL (4.70-6.10) 02/04/25 21:00 Hgb 12.9 g/dl (14.0-18.0) L 02/04/25 21:00 Hct 38.8 % (42.0-52.0) L 02/04/25 21:00 MCV 80.0 fL (80.0-100.0) 02/04/25 21:00 MCH 26.6 pg (25.0-34.0) 02/04/25 21:00 MCHC 33.2 g/dL (32.0-36.0) 02/04/25 21:00 RDW Std Deviation 46.6 fL (36.4-46.3) H 02/04/25 21:00 RDW Coeff of Pepe 16.2 % (11.5-14.5) H 02/04/25 21:00 Plt Count 262 K/uL (130-400) 02/04/25 21:00 MPV 11.2 fL (9.4-12.4) 02/04/25 21:00 Immature Gran % (Auto) 0.4 % 02/04/25 21:00 Neut % (Auto) 68.9 % 02/04/25 21:00 Lymph % (Auto) 23.2 % 02/04/25 21:00 [place] % (Auto) 6.6 % 02/04/25 21:00 Eos % (Auto) 0.5 % 02/04/25 21:00 Baso % (Auto) 0.4 % 02/04/25 21:00 Neut # (Auto) 11.31 K/uL (1.40-6.50) H 02/04/25 21:00 Lymph # (Auto) 3.81 K/uL (1.20-3.40) H 02/04/25 21:00 [place] # (Auto) 1.09 K/uL (0.11-0.59) H 02/04/25 21:00 Eos # (Auto) 0.08 K/uL (0.00-0.50) 02/04/25 21:00 Baso # (Auto) 0.07 K/uL (0.00-0.20) 02/04/25 21:00 Immature Gran # (Auto) 0.07 K/uL (0.01-0.20) 02/04/25 21:00 PT 10.2 Seconds (9.0-12.0) 02/04/25 21:00 INR 0.9 (0.9-1.1) 02/04/25 21:00 Sodium 138 mmol/L (136-145) 02/04/25 21:00 Potassium 3.6 mmol/L (3.5-5.1) 02/04/25 21:00 Chloride 104 mmol/L (98-107) 02/04/25 21:00 Carbon Dioxide 26 mmol/L (21-32) 02/04/25 21:00 Anion Gap 8 (3-11) 02/04/25 21:00 BUN 12 mg/dl (6-23) 02/04/25 21:00 Creatinine 0.69 mg/dl (0.6-1.4) 02/04/25 21:00 Est Cr Clr Drug Dosing 112.8 ml/min 02/04/25 21:00 eGFR 107.94 02/04/25 21:00 BUN/Creatinine Ratio 17.4 (10-20) 02/04/25 21:00 Glucose 174 mg/dl (70-99(Fasting)) H 02/04/25 21:00 Lactate 2.8 mmol/L (0.4-2.0) H* 02/04/25 21:00 Calcium 8.3 mg/dl (8.6-10.3) L 02/04/25 21:00 Total Bilirubin 0.2 mg/dl (0.2-1.0) 02/04/25 21:00 AST 27 U/L (13-39) 02/04/25 21:00 ALT 29 U/L (7-52) 02/04/25 21:00 Alkaline Phosphatase 79 U/L (34-104) 02/04/25 21:00 Troponin I High Sens 4.4 pg/ml (0-20) 02/04/25 21:00 Total Protein 6.2 gm/dl (6.0-8.3) 02/04/25 21:00 Albumin 3.1 gm/dl (3.4-5.0) L 02/04/25 21:00 Globulin 3.1 gm/dl (2.5-4.0) 02/04/25 21:00 Albumin/Globulin Ratio 1.0 (0.9-2) 02/04/25 21:00 Lipase 3 U/L (11-82) L 02/04/25 21:00 Procalcitonin < 0.02 ng/ml (0-0.5) 02/04/25 21:00 SARS-CoV-2, RNA, NAAT NEGATIVE (NEGATIVE) 02/04/25 21:16 Impressions Abdomen/Pelvis CT 02/04/25 21:00 CR Exam(s): CT ABDOMEN + PELVIS With Contrast IV Amt: 89 ml optiray 320 EXAM: CT Abdomen and Pelvis With Intravenous Contrast CLINICAL HISTORY: Severe Pain mid to lower abdomen, hx whipple. TECHNIQUE: Axial computed tomography images of the abdomen and pelvis with intravenous contrast. CTDI is 12 mGy and DLP is 605 mGy-cm. Automated exposure control was utilized for the study. A dose lowering technique was utilized adhering to the principles of ALARA. CONTRAST: Patient received 89 ml optiray 320 of IV contrast COMPARISON: No relevant prior studies available. FINDINGS: Lung bases: Unremarkable. No mass. No consolidation. ABDOMEN: Liver: Unremarkable. No mass. Gallbladder and bile ducts: Cholecystectomy. No ductal dilation. Pancreas: Unremarkable. No mass. No ductal dilation. Spleen: Unremarkable. No splenomegaly. Adrenals: Unremarkable. No mass. Kidneys and ureters: Unremarkable. No solid mass. No hydronephrosis. Stomach and bowel: There is marked thickening of the wall of the small bowel in the left abdomen with perforation best seen on axial series image 39. No obstruction. PELVIS: Appendix: No findings to suggest acute appendicitis. Bladder: Unremarkable. No mass. Reproductive: Nonspecific prostate gland enlargement. ABDOMEN and PELVIS: Intraperitoneal space: Mild free fluid in the abdomen and pelvis is nonspecific. No free air. Bones/joints: There are degenerative changes of the spine. No acute fracture. No dislocation. Soft tissues: Unremarkable. Vasculature: Mild atherosclerosis. No aneurysm. Lymph nodes: Unremarkable. No enlarged lymph nodes. IMPRESSION: 1. There is marked thickening of the wall of the small bowel in the left abdomen with perforation. Surgical consultation is recommended. 2. Nonspecific prostate gland enlargement. Communications: Call Doctor Above results Electronically signed by: Yahaira Mckeon MD 02/04/25 23:26 PM ECG Additional Comments: ECG. Sinus rhythm with PACs rate of 88. Nonspecific T abnormality in lateral leads. QTc 476. Code Status & VTE Plan VTE Prophylaxis Plan VTE Prophylaxis will be ordered: Yes
--- NOTE | 2025-02-05 01:30 | XRay Report ---
EXAM: XR chest 1V portable CLINICAL HISTORY: Pre-op. TECHNIQUE: An X-ray image of the chest is obtained in AP projection. COMPARISON: CT and X-ray 10/05/2024. FINDINGS: Pulmonary Parenchyma: No evidence of consolidation, collapse, or focal opacities. No pulmonary nodules are identified. No evidence of pleural effusion or pleural thickening. Heart and Mediastinum: Heart size and shape are normal. No mediastinal widening or masses. No hilar or mediastinal lymphadenopathy. Bony Thorax: Bony thorax appears intact without fractures or deformities. Soft Tissues: Soft tissues overlying the chest wall are unremarkable. IMPRESSION: No acute cardiopulmonary abnormalities are identified. 1. No significant interval changes. Electronically signed by Sandor Alexander 02-05-2025 01:30 AM
[2025-02-05] MEDS ORDERED: DEXAMETHASONE SOD INJ 4 MG/ML VIAL ONE (02:06)
[2025-02-05] MEDS ORDERED: SUGAMMADEX SODIUM 200 MG/2 ML VIAL IV ONE (02:22)
[2025-02-05] MEDS ORDERED: LABETALOL HCL IV 5 MG/ML 20ML IV ONE (02:29)
--- NOTE | 2025-02-05 02:50 | Operative Report ---
PG Post Operative Report Pre & Post Diagnosis Operation Date: 02/05/25 00:30 Pre-Op Diagnosis: perforated viscus Post-Op Diagnosis: perforated marginal ulcer I identified the patient and participated in the time-out.: Yes Procedure Operation Date: 02/05/25 00:30 Actual Procedures p Exploratory Laparotomy(Not Applicable); oversew of gastric perforation/ulcer; Presley Patch; abdominal washout - Albin Darnell DO Surgeon Albin Darnell DO Ring Cutter Lathe Operator genaro Lui Estimated Blood Loss 25 Findings Consistent with Post-Op Diagnosis Specimens fluid for gram stain/culture Description of Procedure After informed consent was obtained the patient was taken the operating room and placed in supine position. After successful intubation a Cramer catheter was placed sterilely. The abdomen was then shaved and sterilely prepped and draped in usual fashion. I began on the lower mid abdomen and made a vertical incision through the midline from the umbilicus down to the pubic symphysis. This was carried down through the soft tissue using cautery. Anterior fascia was opened using cautery as well. Peritoneum was elevated with hemostats and incised under direct vision using a Metzenbaum scissor. I was then able to use cautery to open the incision to both poles. We immediately encountered a large amount of purulent fluid. There was no foul odor. A sample was taken and sent for Gram stain culture and sensitivity. Once I began running the small bowel it became apparent I was going to have to extend the incision. I extended this around the umbilicus and up towards the xiphoid process through his old scar line. Once I did this I was then able to thoroughly evaluate the bowel. I began by running the small bowel from the cecum backwards. I was able to rather readily identify the perforation which was right at his gastrojejunal anastomosis from his prior Whipple procedure. It was a small probably 1.5 cm perforation. There was no palpable masses underlying it. I used 3-0 Monocryl in simple erupted fashion to close serosal/mucosal layers. I then oversewed in Lembert fashion the serosa using 3-0 silk. Next I used 5 cc of Tisseel sealant to cover the entire area. We then used a piece of the patient's prior omentum coming off the greater curvature of the stomach to place as a Presley patch. It was laid over the perforation site and secured to the serosa again using 3-0 silk. Wound was then thoroughly irrigated with 5 L of warm irrigation. A look around the abdomen showed no other abnormalities other than the obvious inflammatory reaction. We placed 219 [place] drains 1 on either side of the abdomen. 1 was placed into the pelvis and the other in the left upper quadrant. They were both secured to the skin using 2-0 nylon. The fascia was closed using #1 looped PDS in running fashion. Soft tissue was irrigated. Skin was closed using skin toya and a silver dressing was applied. The patient was waken extubated and transferred to recovery in guarded condition. My physician assistant professor of nursing was present for the entire case. He was instrumental in assisting with access to t he abdomen, repairing the perforation, wound closure and dressing placement. I attest to the content of the Intraoperative Record and any orders documented therein. Any exceptions are noted below.
[2025-02-05] MEDS ORDERED: PROMETHAZINE HCL 6.25 MG in SODIUM CHLORIDE 0.9% 50 ML IV PRN (02:58)
[2025-02-05] MEDS ORDERED: ATROPINE SULFATE 0.1 MG/ML 10ML SYR IV PRN (02:58)
[2025-02-05] MEDS ORDERED: ONDANSETRON INJ 2 MG/ML 2 ML VIAL IV PRN ×2 (02:58→04:09)
[2025-02-05] MEDS: HYDROmorphone INJ 2 MG/ML SYR/VIAL IV PRN (03:04)
[2025-02-05] MEDS: HYDROmorphone INJ 2 MG/ML SYR/VIAL ONE (03:13)
--- NOTE | 2025-02-05 03:18 | Anesthesiology Progress Note ---
Date of Service February 05, 2025 Anesthesia Post Procedure Vital Signs Vital Signs: Pulse Resp BP Pulse Ox O2 Del Method 02/05/25 00:00 86 21 157/92 H 98 Room Air 02/04/25 23:30 88 21 165/94 H 97 Room Air 02/04/25 23:30 88 19 165/94 H 96 Room Air 02/04/25 23:12 89 20 98 02/04/25 23:01 176/104 H 02/04/25 22:36 82 22 98 02/04/25 22:30 161/91 H 02/04/25 22:30 161/91 H 02/04/25 22:24 90 17 96 02/04/25 22:09 78 20 154/86 H 96 02/04/25 21:54 92 H 19 96 02/04/25 21:50 85 02/04/25 21:31 26 H 189/119 H 97 02/04/25 21:31 189/119 H 02/04/25 21:31 189/119 H 02/04/25 21:21 103 H 27 H 02/04/25 21:17 191/125 H 02/04/25 21:17 191/125 H 02/04/25 21:15 79 35 H 02/04/25 21:00 102 H 26 H 159/109 H 100 Room Air Pain Intensity Lower Abdomen: Pain Intensity: 5 Transfer of Care Handoff Completed per policy Notes Mental Status: alert / awake / arousable and participated in evaluation Patient Amnestic to Procedure: Yes Nausea / Vomiting: adequately controlled Pain: adequately controlled Airway Patency, RR, SpO2: stable & adequate BP & HR: stable & adequate Hydration State: stable & adequate Anesthetic Complications: no major complications apparent
--- NOTE | 2025-02-05 03:58 | XRay Report ---
EXAM: XR KUB/Abdomen 1 view CLINICAL HISTORY: Confirm NG placement s/p Ex Lap TECHNIQUE: Radiograph of kub/abdomen was acquired. COMPARISON: 09/27/2018 13:11:11 CHAIR LIFT OPERATOR FINDINGS: Non-obstructive, non-specific bowel gas pattern. No significant air fluid levels. Few surgical toya in midline epigastric region and in right paraspinal region. No evidence of air under diaphragm. No obvious organomegaly. Bony shadows appear unremarkable. Nasogastric tube in situ with tip in left upper quadrant (likely in stomach). IMPRESSION: 1. No acute abdominal abnormality. No new finding. Electronically signed by Jose Alfredo Mckenzie 02-05-2025 03:57 AM
[2025-02-05] MEDS ORDERED: CARBOHYDRATES FOR HYPOGLYCEMIA PO PRN (04:09)
[2025-02-05] MEDS ORDERED: GLUCOSE 40% GEL 15 GM TUBE PO PRN (04:09)
[2025-02-05] MEDS ORDERED: GLUCAGON FOR INJ 1 MG VIAL SQ PRN (04:09)
[2025-02-05] MEDS ORDERED: DEXTROSE 50% 50 ML SYRINGE IV PRN (04:09)
[2025-02-05] MEDS: SODIUM CHLORIDE 0.9% 1,000 ML IV SCH (04:09)
[2025-02-05] MEDS ORDERED: NITROGLYCERIN SL 0.4 MG/TAB TAB SL PRN (04:09)
[2025-02-05] MEDS ORDERED: GLUCOSE 10 TAB/TUBE PO PRN (04:09)
[2025-02-05] MEDS: INSULIN ASPART PER UNIT CHARGE SC SCH ×2 (04:19→05:58)
[2025-02-05] MEDS: ACETAMINOPHEN 1,000 MG/100 ML VIAL IV PRN (04:42)
[2025-02-05] MEDS ORDERED: Nursing to Pharmacy Communication SCH (04:45)
[2025-02-05] MEDS: PIPERACILLIN/TAZOBACTAM 4.5 GM/100 ML BAG IV SCH (05:09)
[2025-02-05] MEDS: VANCOMYCIN HCL 1,000 MG/270 ML BAG IV SCH (05:30)
[2025-02-05 05:37] LABS: Hematocrit (blood only) 35.5 % (42.0-52.0); Hemoglobin 11.6 g/dl (14.0-18.0); Immature Granulocytes # (auto) 0.02 K/uL (0.01-0.20); Immature Granulocytes % (auto) 0.2 %; Mean Corpuscular Hemoglobin 26.2 pg (25.0-34.0); Mean Corpuscular Volume 80.3 fL (80.0-100.0); Platelet Count 155 K/uL (130-400); RDW Standard Deviation 46.8 fL (36.4-46.3); Red Blood Count 4.42 M/uL (4.70-6.10); White Blood Count 10.04 K/ul (4.8-10.8)
[2025-02-05 05:54] LABS: Anion Gap 5.0 (3-11); Blood Urea Nitrogen 11.0 mg/dl (6-23); Calcium 7.1 mg/dl (8.6-10.3); Carbon Dioxide 25.0 mmol/L (21-32); Chloride 108.0 mmol/L (98-107); Creatinine Clr Calc Pharmacy 143.6 ml/min; Glucose 144.0 mg/dl (70-99(Fasting)); Magnesium 1.6 mg/dl (1.7-2.4); Potassium 3.8 mmol/L (3.5-5.1); Sodium 138.0 mmol/L (136-145)
[2025-02-05 07:30] LABS: Hemoglobin A1C 7.1 % (4.5-5.6)
[2025-02-05] MEDS: PANTOprazole 40 MG/10 ML SYR IV SCH (07:40)
[2025-02-05] MEDS: MAGNESIUM SULFATE / D5W 1 GM/100 ML BAG IV SCH (09:19)
--- NOTE | 2025-02-05 12:13 | Communication Note ---
Date of Service: February 05, 2025 Patient was seen and examined at bedside. 59 yo M w/ PMH of type 2 diabetes, malignant neoplasm of head of pancreas, splenic vein thrombosis, paralysis of left common peroneal nerve, degenerative disc disease, chemotherapy-induced neuropathy, chronic bilateral low back pain, thyroglossal duct cyst, general anxiety disorder comes because of abdominal pain and found to have bowel perforation. Patient states ongoing abdominal pain for months but today the pain was very severe. And was nauseous. Earlier today had normal bowel movement. Denied fevers/blood in stool/chest pain. Ran out of Flomax prescription about a week ago and having some difficulty micturating. Of note, patient was diagnosed with splenic vein thrombosis in September 2024 and he was transferred to [place] from [facility]. He was also treated for possible splenic infarct versus abscess with antibiotics. He was discharged on Eliquis. Also saw heme-onc in October 2024 and was advised to continue Eliquis. But patient says he stopped Eliquis after 1 month of taking it because he could not afford it. Bowel perforation likely severe sepsis iso bowel perforation/infection Pt presents w/ worsening abdominal pain, see above. Admitting Lactic acid 2.8 WBC 16, resp and pulse rate also elevated. LFTs okay. Admitting CTAP: s/o small bowel perforation. s/p Exploratory Laparotomy(Not Applicable); oversew of gastric perforation/ulcer; Presley Patch; abdominal washout - Albin Darnell DO on 02/05/2025 Received Vanco and Zosyn, nicolasa vanc, c/w zosyn 02/05. c/w IV fluids general care/diet per Sx. 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 Currently anticoagulation on hold d/t post op status. Chemotherapy-induced neuropathy: c/w home gabapentin when able. GERD: c/w iv protonix now, to po when able. DM: SSI BPH: Patient states he ran out of prescription of Flomax about a week ago. Monitor for urinary retention, currently on bailey, start flomax when taking PO. General Anxiety disorder: Will start on buspirone when able to DVT prophylaxis: SCDs Disposition: Telemetry Full code. For detailed info on the patient refer to today's HnP note.
[2025-02-05 15:08] LABS: Appearance Urine Clear (Clear); Bacteria Urine Automated None Seen (None Seen); Epithelial Cell Urine Auto 0-2 /hpf (0-2); Glucose Urine UA Negative (Negative)
[2025-02-05 15:28] LABS: Cast Urine Automated 0-2 /lpf (0-2)
[2025-02-05] MEDS: HYDROmorphone INJ 0.5 MG/0.5 ML SYR IV PRN (17:27)
--- NOTE | 2025-02-06 04:12 | Surgery Progress Note ---
Date of Service February 06, 2025 Assessment & Plan (1) Bowel perforation: Plan: Patient is status post repair of gastric perforation on 02/05/2025 (postop day #1) Continue analgesics as needed Continue antiemetics as needed Maintain NG tubeconsideration be given to removing this once patient has return of bowel function Maintain n.p.o. statusthis will remain in place until patient is able to be fit to undergo swallow study to assess surgical repair of perforated ulcer Continue intravenous fluids while patient is n.p.o. Operative Gram stain shows no organisms with culture pending Continue antibiotics in the form of Zosyn Maintain patient on PPI Increase ambulation as able Check a.m. labs when available Consider adding chemical means of DVT prophylaxis if laboratories noted to be stable As above. Doing okay. Continue IV fluids and antibiotics. Will need to keep NG tube for several days. Will plan upper GI probably . Both JPs pink and serous Admission and Anticipated Discharge Date Admission Date: February 05, 2025 Subjective Patient is currently resting in bed. He notes abdominal pain which is improved from what was noted at time of admission. He denies any nausea or vomiting. No bowel function since surgery. He is voiding without difficulty I discussed with the nurse attending the patient and no issues noted. Physical Exam Gastrointestinal (Abdomen): Abdomen is nondistended. Patient has expected pain along his surgical incision. 2 YANELI drains are in place draining serosanguineous fluid. NG tube is in place. Surgical incision is intact with toya. Results & Data Vital Signs (Past 12 Hours) Vital Signs Temp Pulse Pulse Resp BP Pulse Ox O2 Del Method 02/05/25 22:39 37.0 C 75 17 139/88 96 Room Air 02/05/25 21:46 80 02/05/25 21:33 Room Air 02/05/25 19:14 36.9 C 91 H 19 126/83 96 Room Air PG Care Time/CCT Total # of Minutes Spent Total Time Spent with Patient: Total time spent is greater than 50% in coordination of care (as documented) at patient's floor/unit and/or counseling patient: Coding Level of Care Code 65898 Post Operative Follow-Up Diagnoses Bowel perforation K63.1
[2025-02-06 07:06] LABS: Hematocrit (blood only) 33.0 % (42.0-52.0); Hemoglobin 11.0 g/dl (14.0-18.0); Mean Corpuscular Hemoglobin 26.8 pg (25.0-34.0); Mean Corpuscular Volume 80.5 fL (80.0-100.0); Platelet Count 152 K/uL (130-400); RDW Standard Deviation 47.6 fL (36.4-46.3); Red Blood Count 4.10 M/uL (4.70-6.10); White Blood Count 11.76 K/ul (4.8-10.8)
[2025-02-06 07:42] LABS: Anion Gap 4.0 (3-11); Blood Urea Nitrogen 16.0 mg/dl (6-23); Calcium 7.6 mg/dl (8.6-10.3); Carbon Dioxide 25.0 mmol/L (21-32); Chloride 109.0 mmol/L (98-107); Creatinine Clr Calc Pharmacy 138.9 ml/min; Glucose 103.0 mg/dl (70-99(Fasting)); Magnesium 2.0 mg/dl (1.7-2.4); Potassium 3.8 mmol/L (3.5-5.1); Sodium 138.0 mmol/L (136-145)
[2025-02-06] MEDS: HEPARIN SOD 5,000 UNIT/0.5 ML VIAL SQ SCH (10:14)
--- NOTE | 2025-02-06 13:13 | Hospitalist Progress Note ---
Date of Service February 06, 2025 Assessment & Plan (1) Bowel perforation: Plan 59 yo M w/ PMH of type 2 diabetes, malignant neoplasm of head of pancreas, splenic vein thrombosis, paralysis of left common peroneal nerve, degenerative disc disease, chemotherapy-induced neuropathy, chronic bilateral low back pain, thyroglossal duct cyst, general anxiety disorder comes because of abdominal pain and found to have bowel perforation. Patient states ongoing abdominal pain for months but today the pain was very severe. And was nauseous. Earlier today had normal bowel movement. Denied fevers/blood in stool/chest pain. Ran out of Flomax prescription about a week ago and having some difficulty micturating. Of note, patient was diagnosed with splenic vein thrombosis in September 2024 and he was transferred to [place] from [facility]. He was also treated for possible splenic infarct versus abscess with antibiotics. He was discharged on Eliquis. Also saw heme-onc in October 2024 and was advised to continue Eliquis. But patient says he stopped Eliquis after 1 month of taking it because he could not afford it. Bowel perforation likely severe sepsis iso bowel perforation/infection Pt presents w/ worsening abdominal pain, see above. Admitting Lactic acid 2.8 WBC 16, resp and pulse rate also elevated. LFTs okay. Admitting CTAP: s/o small bowel perforation. s/p Exploratory Laparotomy(Not Applicable); oversew of gastric perforation/ulc er; Presley Patch; abdominal washout - Albin Darnell, DO on 02/05/2025 c/w zosyn 02/05. await cultures, consult ID. c/w IV fluids general care/diet per Sx. 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 For now Hep sc for DVT px. Currently anticoagulation on hold d/t post op status. Chemotherapy-induced neuropathy: c/w home gabapentin when able. GERD: c/w iv protonix now, to po when able. DM: SSI BPH: Patient states he ran out of prescription of Flomax about a week ago. Monitor for urinary retention, currently on bailey, start flomax when taking PO. General Anxiety disorder: Will start on buspirone when able to DVT prophylaxis: SCDs Disposition: Telemetry Full code. Patient's Dyan was given a phone call and updated on plan of care. She voiced understanding, she states pt stopped eliquis on self due to cost concerns. Admission and Anticipated Discharge Date Admission Date: February 05, 2025 Subjective Patient was seen and examined at bedside. Patient was lying in bed, resting comfortably, NAD. Patient reports overall improvement in his abdominal pain, patient denies moving gas or bowels. Physical Exam Physical Exam: General- Not in acute distress Head- atraumatic Eyes- PERRL. ENT- oropharynx clear Neck- supple, no JVD. Lungs- clear to auscultation no wheezing or crackles Heart- regular rhythm; no murmur, no gallop. Abdomen- bowel sounds sluggish, diffuse tender and guarding, no distension, b/l YANELI drain noted w/ serosanguineous outputs. Extremities- no pretibial edema, no erythema seen. Neuro- alert, oriented PERRL, no facial palsy; no dysarthria; moves extremities Results & Data Results & Data Vital Signs (Past 12 Hours) Vital Signs Temp Pulse Resp BP Pulse Ox O2 Del Method 02/06/25 11:29 37 C 69 20 165/93 H 100 Room Air 02/06/25 07:51 37.0 C 89 16 153/87 H 98 Room Air 02/06/25 02:39 37.2 C 97 H 18 146/89 H 96 Room Air
[2025-02-06] MEDS: D5W AND LACTATED RINGERS 1,000 ML IV SCH (20:00)
[2025-02-07 07:42] LABS: Hematocrit (blood only) 32.7 % (42.0-52.0); Hemoglobin 10.7 g/dl (14.0-18.0); Mean Corpuscular Hemoglobin 26.3 pg (25.0-34.0); Mean Corpuscular Volume 80.3 fL (80.0-100.0); Platelet Count 140 K/uL (130-400); RDW Standard Deviation 46.2 fL (36.4-46.3); Red Blood Count 4.07 M/uL (4.70-6.10); White Blood Count 9.76 K/ul (4.8-10.8)
[2025-02-07 07:58] LABS: Anion Gap 4.0 (3-11); Blood Urea Nitrogen 8.0 mg/dl (6-23); Calcium 7.7 mg/dl (8.6-10.3); Carbon Dioxide 27.0 mmol/L (21-32); Chloride 106.0 mmol/L (98-107); Creatinine Clr Calc Pharmacy 151.6 ml/min; Glucose 138.0 mg/dl (70-99(Fasting)); Magnesium 1.7 mg/dl (1.7-2.4); Potassium 3.2 mmol/L (3.5-5.1); Sodium 137.0 mmol/L (136-145)
--- NOTE | 2025-02-07 08:29 | Surgery Progress Note ---
Date of Service February 07, 2025 Assessment & Plan (1) Bowel perforation: Plan: Patient is status post repair of gastric perforation on 02/05/2025 (postop day #2) WBC 9, Hbg 10.7 (11). Vitals stable Adjusted Tylenol to standing, on prn dilaudid IV YANELI drain x2 serousang Continue NGT with NPO status, will plan on UGI/leak test later this week via NGT prior to diet initiation We recommend starting PPN in meantime while patient NPO On sq heparin for DVT prophylaxis; PPI IV ordered; IV zosyn Encourage OOB/ambulation and pulmonary toilet Cramer is out and he is voiding as above. doing well/as expected. will start PPN. tentative plan UGI wed. drains look good Admission and Anticipated Discharge Date Admission Date: February 05, 2025 Subjective Patient resting in bed. + pain. No nausea/vomiting. No bowel function thus far. Physical Exam Physical Exam: awake, no distress Respiratory: normal respiratory effort Gastrointestinal (Abdomen): Inspection/Auscultation: + abdominal surgical incision (dressing c/d/i) and + abdominal surgical drain present (serous) Percussion/Palpation: + abdomen tender (+ arnoldo incisional discomfort) Results & Data Vital Signs (Past 12 Hours) Vital Signs Temp Pulse Pulse Resp BP Pulse Ox Pulse Ox 02/07/25 07:38 97.9 F 66 20 142/86 H 96 02/07/25 04:00 96 02/07/25 03:34 98.8 F 71 19 161/80 H 96 02/06/25 23:58 98.4 F 86 19 144/91 H 97 02/06/25 21:47 86 O2 Del Method O2 Del Method 02/07/25 07:38 Room Air 02/07/25 04:00 Room Air 02/07/25 03:34 Room Air 02/06/25 23:58 Room Air 02/06/25 21:47 PG Care Time/CCT Total # of Minutes Spent Total Time Spent with Patient: Total time spent is greater than 50% in coordination of care (as documented) at patient's floor/unit and/or counseling patient: Coding Level of Care Code 06899 Post Operative Follow-Up Diagnoses Bowel perforation K63.1
[2025-02-07] MEDS: ACETAMINOPHEN 1,000 MG/100 ML VIAL IV SCH (09:22)
[2025-02-07] MEDS ORDERED: TPN/PPN CONSULT PHARMACY STA ×2 (10:58)
[2025-02-07] MEDS ORDERED: DEXTROSE 10% 1,000 ML IV PRN (10:58)
[2025-02-07] MEDS: POTASSIUM CHLORIDE / WTR 10 MEQ/100 ML PLCT IV SCH (12:40)
[2025-02-07] MEDS: POTASSIUM PHOSPHATE 12 MMOL in SODIUM CHLORIDE 0.9% 250 ML IV ONE (12:48)
[2025-02-07] MEDS ORDERED: TPN/PPN CONSULT PHARMACY PRN (13:17)
--- NOTE | 2025-02-07 13:54 | Hospitalist Progress Note ---
Date of Service February 07, 2025 Assessment & Plan (1) Bowel perforation: Plan 59 yo M w/ PMH of type 2 diabetes, malignant neoplasm of head of pancreas, splenic vein thrombosis, paralysis of left common peroneal nerve, degenerative disc disease, chemotherapy-induced neuropathy, chronic bilateral low back pain, thyroglossal duct cyst, general anxiety disorder comes because of abdominal pain and found to have bowel perforation. Patient states ongoing abdominal pain for months but today the pain was very severe. And was nauseous. Earlier today had normal bowel movement. Denied fevers/blood in stool/chest pain. Ran out of Flomax prescription about a week ago and having some difficulty micturating. Of note, patient was diagnosed with splenic vein thrombosis in September 2024 and he was transferred to [place] from [facility]. He was also treated for possible splenic infarct versus abscess with antibiotics. He was discharged on Eliquis. Also saw heme-onc in October 2024 and was advised to continue Eliquis. But patient says he stopped Eliquis after 1 month of taking it because he could not afford it. Bowel perforation likely severe sepsis iso bowel perforation/infection Pt presents w/ worsening abdominal pain, see above. Admitting Lactic acid 2.8 WBC 16, resp and pulse rate also elevated. LFTs okay. Admitting CTAP: s/o small bowel perforation. s/p Exploratory Laparotomy(Not Applicable); oversew of gastric perforation/ulc er; Presley Patch; abdominal washout - Albin Darnell, DO on 02/05/2025 c/w zosyn 02/05. await cultures - prelim e coli, consult ID. c/w IV fluids general care/diet per sx. Plan for PPN. Monitor and replete lytes. 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 Chemotherapy-induced neuropathy: c/w home gabapentin when able. GERD: c/w iv protonix now, to po when able. DM: SSI BPH: Patient states he ran out of prescription of Flomax about a week ago. Monitor for urinary retention, currently on bailey, start flomax when taking PO. General Anxiety disorder: Will start on buspirone when able to DVT prophylaxis: Hep SC. Disposition: Telemetry Full code. Patient's Dyan was given a phone call 02/06 and updated on plan of care. Admission and Anticipated Discharge Date Admission Date: February 05, 2025 Subjective Patient was seen and examined at bedside. Patient was lying in bed, resting comfortably, NAD. Patient reports abdominal pain about same/minimal improvement, patient denies moving gas or bowels. Physical Exam Physical Exam: General- Not in acute distress Head- atraumatic Eyes- PERRL. ENT- oropharynx clear Neck- supple, no JVD. Lungs- clear to auscultation no wheezing or crackles Heart- regular rhythm; no murmur, no gallop. Abdomen- bowel sounds sluggish, diffuse tender and guarding, no distension, b/l YANELI drain noted w/ serosanguineous outputs. Extremities- no pretibial edema, no erythema seen. Neuro- alert, oriented PERRL, no facial palsy; no dysarthria; moves extremities Results & Data Results & Data Vital Signs (Past 12 Hours) Vital Signs Temp Pulse Resp BP Pulse Ox Pulse Ox O2 Del Method 02/07/25 11:24 37.1 C 71 19 150/78 H 97 Room Air 02/07/25 10:14 Room Air 02/07/25 07:38 36.6 C 66 20 142/86 H 96 Room Air 02/07/25 04:00 96 02/07/25 03:34 37.1 C 71 19 161/80 H 96 Room Air O2 Del Method 02/07/25 11:24 02/07/25 10:14 02/07/25 07:38 02/07/25 04:00 Room Air 02/07/25 03:34
[2025-02-07] MEDS: THIAMINE HCL 200 MG in SODIUM CHLORIDE 0.9% 50 ML IV ONE (14:05)
--- NOTE | 2025-02-07 14:33 | Infectious Disease Consult ---
Date of Service February 07, 2025 Telehealth Information I performed this visit using a real-time telehealth connection between my location and the patients location ([facility]). After connecting through interactive tele-video, patient was identified by name and date of and/or wristband check.Patient (or authorized healthcare medical service representative) was informed that this was a telemedicine visit and it was being conducted confidentially over secure lines. My office door was closed and no one else was present in the room with me.Patient (or authorized healthcare medical service representative) provided consent to proceed with the visit, expressed an understanding of privacy and security of the telemedicine visit, and gave permission to have a hospital medical service representative in the room in order to assist with the visit and to conduct portions of the visit, as needed. I informed the patient (or authorized healthcare medical service representative) that I reviewed their record and presented the opportunity for them to ask any questions regarding the visit today. The patient agreed to participate. 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 During this patient encounter, one or more of the following was provided in addition to my in person visit: disease transmission risk assessment and mitigation; public health investigation, analysis, and testing; and/or complex antimicrobial therapy counseling and treatment. I spent a total of 67 minutes coordinating, documenting, and providing care for this patient excluding time spent in the performance of separately billed services or time spent by another provider/QHP. 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 No fever. Found to have perforated small bowel (CT showing marked thickening of the wall of the small bowel in the L side of the abdomen), requiring ex lap and repair w/ oversewing and valery patch and abd washout (02/05/25: large amount of purulent fluid w/ gastrojejunal anastomosis from his prior Whipple procedure). The peritoneal fluid grew E coli. The patient still has abd pain, especially when he has intermittent dry coughs, but improving overall. No n/v, urinary symptoms, coughing, cp, sob, or f/c. Allergies Allergy/AdvReac Type Severity Reaction Status Date / Time No Known Allergies Allergy Verified 02/04/25 22:27 Home Medications Medication Instructions Recorded Confirmed Type tamsulosin 0.4 mg capsule (Flomax) 0.8 mg PO QAM 01/23/21 02/04/25 History buspirone 10 mg tablet 10 mg PO BID 10/05/24 02/04/25 History gabapentin 600 mg tablet 600 mg PO TID 10/05/24 02/04/25 History hydrocodone 10 mg-acetaminophen 1 tab PO DAILY 10/05/24 02/04/25 History 325 mg tablet omeprazole 20 mg capsule,delayed 20 mg PO DAILY 10/05/24 02/04/25 History release pioglitazone 30 mg tablet 30 mg PO DAILY 10/05/24 02/04/25 History Patient History Medical History Pancreatic cancer Dx in 2018, underwent Whipple and chemo (completed in 2018) Surgical History History of arthroscopy of shoulder x 2 History of Whipple procedure Social History Smoking Status: Current every day smoker Tobacco Type: Cigarettes Cigarettes Per Day: 1 pack; Do You Dip or Chew Tobacco: No; Hx Alcohol Use: Yes Hx Substance Use: Yes Preferred Language: Occitan Communication Ability: Effective Pier Hand Helper Required: No Beliefs That Will Affect Care: None Current Living Situation: Spouse Feels Safe at Home: Yes Safety Concerns: Feels Safe At This Time Assistive Devices: Walker Review of Systems as HPI and all others negative Physical Exam Gen: NG tube in place, no acute distress Lungs: breathing comfortably on room air Neuro: Alert, awak and oriented x3 Results & Data Vital Signs (Past 12 Hours) Vital Signs Temp Pulse Pulse Resp BP Pulse Ox Pulse Ox 02/07/25 14:22 74 02/07/25 11:24 37.1 C 71 19 150/78 H 97 02/07/25 10:14 02/07/25 07:38 36.6 C 66 20 142/86 H 96 02/07/25 05:39 66 02/07/25 04:00 96 02/07/25 03:34 37.1 C 71 19 161/80 H 96 O2 Del Method O2 Del Method 02/07/25 14:22 02/07/25 11:24 Room Air 02/07/25 10:14 Room Air 02/07/25 07:38 Room Air 02/07/25 05:39 02/07/25 04:00 Room Air 02/07/25 03:34 Room Air Laboratory Results WBC 16K ->-> 9.76K H 11 Plt 140K Cr 0.53 Blood cx (02/05): NGTD Peritoneal fluid ( 02/05): E coli UA: LE neg XR KUB (02/05): no acute finding CXR: no acute finding CT A/P: 1. There is marked thickening of the wall of the small bowel in the left abdomen with perforation. 2. Nonspecific prostate gland enlargement.
[2025-02-07] MEDS: CHLORASEPTIC (PHENOL) 1.4% SOLN 180 ML BTL MT PRN (16:12)
[2025-02-07] MEDS ORDERED: Nursing to Pharmacy Communication SCH (19:30)
--- NOTE | 2025-02-07 22:37 | Electrocardiogram Report ---
Test Reason : Blood Pressure : */* mmHG Vent. Rate : 88 BPM Atrial Rate : 88 BPM P-R Int : 136 ms QRS Dur : 74 ms QT Int : 394 ms P-R-T Axes : 72 80 94 degrees QTcB Int : 476 ms Poor data quality, interpretation may be adversely affected Sinus rhythm with Premature atrial complexes Low voltage QRS Nonspecific ST and T wave abnormality Abnormal ECG When compared with ECG of 05-Oct-2024 17:12, Premature atrial complexes are now Present Confirmed by Alfredo Osborne ([id number]) on 02/07/2025 10:36:46 PM Referred By: REFERRED SELF Confirmed By: Alfredo Osborne
[2025-02-08 06:27] LABS: Hematocrit (blood only) 32.6 % (42.0-52.0); Hemoglobin 10.6 g/dl (14.0-18.0); Mean Corpuscular Hemoglobin 26.2 pg (25.0-34.0); Mean Corpuscular Volume 80.5 fL (80.0-100.0); Platelet Count 142 K/uL (130-400); RDW Standard Deviation 45.9 fL (36.4-46.3); Red Blood Count 4.05 M/uL (4.70-6.10); White Blood Count 9.31 K/ul (4.8-10.8)
[2025-02-08 06:51] LABS: Alanine Aminotransferase 11.0 U/L (7-52); Alkaline Phosphatase 52.0 U/L (34-104); Anion Gap 5.0 (3-11); Bilirubin,Total 0.3 mg/dl (0.2-1.0); Blood Urea Nitrogen 6.0 mg/dl (6-23); Calcium 7.8 mg/dl (8.6-10.3); Carbon Dioxide 25.0 mmol/L (21-32); Chloride 108.0 mmol/L (98-107); Creatinine Clr Calc Pharmacy 145.7 ml/min; Glucose 142.0 mg/dl (70-99(Fasting)); Magnesium 1.8 mg/dl (1.7-2.4); Potassium 3.4 mmol/L (3.5-5.1); Sodium 138.0 mmol/L (136-145); Triglycerides 135.0 mg/dl (0-150)
[2025-02-08] MEDS: POTASSIUM CHLORIDE / WTR 10 MEQ/100 ML PLCT IV SCH (08:06)
--- NOTE | 2025-02-08 08:25 | Surgery Progress Note ---
Date of Service February 08, 2025 Assessment & Plan (1) Bowel perforation: Plan: Patient is status post repair of gastric perforation on 02/05/2025 (postop day #3) WBC 9.3, Hbg 10.6. Vitals stable NGT in place today yet, will order an UGI tomorrow for leak test, if negative will consider removal and initiation of clears PPN ordered for today if okay per pharmacy and dietary pending electrolyte repletion status YANELI drain x2 serousang to remain in place for now On sq heparin for DVT prophylaxis; PPI IV ordered; IV zosyn with cx's growing e.coli, appreciate ID input Encourage OOB/ambulation and pulmonary toilet as above. doing well. UGI tomorrow. Admission and Anticipated Discharge Date Admission Date: February 05, 2025 Subjective Patient resting in bed. States he didn't sleep well last night. Pain present, but manageable. Voiding well. Would like to get OOB again today. Physical Exam Physical Exam: awake/alert, no distress Respiratory: normal respiratory effort Gastrointestinal (Abdomen): Inspection/Auscultation: + abdominal surgical incision (c/d/i with midline toya) and + abdominal surgical drain present (x2 serosang, 50cc L and 100cc R documented) Percussion/Palpation: + abdomen tender and abdomen soft NGT in place with minimal output Results & Data Vital Signs (Past 12 Hours) Vital Signs Temp Pulse Pulse Resp BP Pulse Ox Pulse Ox 02/08/25 07:26 55 L 02/08/25 04:00 95 02/08/25 02:53 98.4 F 65 16 157/78 H 98 02/07/25 23:02 99.0 F 63 18 153/81 H 95 02/07/25 22:10 66 O2 Del Method O2 Del Method 02/08/25 07:26 02/08/25 04:00 Room Air 02/08/25 02:53 Room Air 02/07/25 23:02 Room Air 02/07/25 22:10 PG Care Time/CCT Total # of Minutes Spent Total Time Spent with Patient: Total time spent is greater than 50% in coordination of care (as documented) at patient's floor/unit and/or counseling patient: Coding Level of Care Code 74192 Post Operative Follow-Up Diagnoses Bowel perforation K63.1
--- NOTE | 2025-02-08 12:12 | Hospitalist Progress Note ---
Date of Service February 08, 2025 Assessment & Plan (1) Bowel perforation: Plan 59 yo M w/ PMH of type 2 diabetes, malignant neoplasm of head of pancreas, splenic vein thrombosis, paralysis of left common peroneal nerve, degenerative disc disease, chemotherapy-induced neuropathy, chronic bilateral low back pain, thyroglossal duct cyst, general anxiety disorder comes because of abdominal pain and found to have bowel perforation. Patient states ongoing abdominal pain for months but today the pain was very severe. And was nauseous. Earlier today had normal bowel movement. Denied fevers/blood in stool/chest pain. Ran out of Flomax prescription about a week ago and having some difficulty micturating. Of note, patient was diagnosed with splenic vein thrombosis in September 2024 and he was transferred to [facility] from [facility]. He was also treated for possible splenic infarct versus abscess with antibiotics. He was discharged on Eliquis. Also saw heme-onc in October 2024 and was advised to continue Eliquis. But patient says he stopped Eliquis after 1 month of taking it because he could not afford it. Bowel perforation likely severe sepsis iso bowel perforation/infection Pt presents w/ worsening abdominal pain, see above. Admitting Lactic acid 2.8 WBC 16, resp and pulse rate also elevated. LFTs okay. Admitting CTAP: s/o small bowel perforation. s/p Exploratory Laparotomy(Not Applicable); oversew of gastric perforation/ulc er; Presley Patch; abdominal washout - Albin Darnell, DO on 02/05/2025 c/w zosyn 02/05. Abd Cx w/ pansensitive e coli --> dc zosyn 02/08, start cefazolin 02/08. c/w IV fluids, can dc if starting PPN. general care/diet per sx. Plan for PPN. Monitor and replete lytes. KCL repleted today. History of malignant neoplasm of head of the pancreas Diagnosed in 02/16/2018 Received modified FOLFIRINOX Status post Whipple's procedure 2017 No evidence of recurrence Follows with heme-onc Splenic vein thrombosis and splenic infarction 09/2024 Was placed on Eliquis During that time was also treated for possible splenic abscess with antibiotics Patient stopped eliquis after 1 month because he could not afford it D/w heme-onc 02/07, no need for further full anticoagulation. Chemotherapy-induced neuropathy: c/w home gabapentin when able. GERD: c/w iv protonix now, to po when able. DM: SSI BPH: Patient states he ran out of prescription of Flomax about a week ago. Monitor for urinary retention, currently on bailey, start flomax when taking PO. General Anxiety disorder: Will start on buspirone when able to DVT prophylaxis: Hep SC. Disposition: Telemetry Full code. Patient's Dyan was given a phone call 02/06 and updated on plan of care. Admission and Anticipated Discharge Date Admission Date: February 05, 2025 Subjective Patient was seen and examined at bedside. Patient was lying in bed, resting comfortably, NAD. Patient reports abdominal pain gradually improving, reports moving occasional gas, no bowel movement. Physical Exam Physical Exam: General- Not in acute distress Head- atraumatic Eyes- PERRL. ENT- oropharynx clear Neck- supple, no JVD. Lungs- clear to auscultation no wheezing or crackles Heart- regular rhythm; no murmur, no gallop. Abdomen- bowel sounds sluggish, diffuse tender and guarding, no distension, b/l YANELI drain noted w/ serosanguineous outputs. clean incisional wound with toya. Extremities- no pretibial edema, no erythema seen. Neuro- alert, oriented PERRL, no facial palsy; no dysarthria; moves extremities Results & Data Results & Data Vital Signs (Past 12 Hours) Vital Signs Temp Pulse Pulse Resp BP Pulse Ox Pulse Ox 02/08/25 08:28 36.9 C 80 19 129/93 96 02/08/25 07:26 55 L 02/08/25 04:00 95 02/08/25 02:53 36.9 C 65 16 157/78 H 98 O2 Del Method O2 Del Method 02/08/25 08:28 Room Air 02/08/25 07:26 02/08/25 04:00 Room Air 02/08/25 02:53 Room Air
--- NOTE | 2025-02-08 15:18 | Infectious Disease Progress Nt ---
Date of Service February 08, 2025 Telehealth Information non billable note Assessment & Plan (1) Bacterial peritonitis: Plan: E coli turned out to be gibson sensitive. Stop zosyn and start ampicillin sulbactam iv to continue abx therapy while inpatient. The abx therapy should end once total 7 days are complete as mentioned on the consult note. If discharging patient before completion of abx therapy, may switch ampicillin sulbactam to augmentin po. ID signing off. Results & Data Vital Signs (Past 12 Hours) Vital Signs Temp Pulse Pulse Resp BP Pulse Ox Pulse Ox 02/08/25 15:13 71 02/08/25 12:42 37.0 C 70 19 153/96 H 99 02/08/25 08:28 36.9 C 80 19 129/93 96 02/08/25 07:26 55 L 02/08/25 04:00 95 O2 Del Method O2 Del Method 02/08/25 15:13 02/08/25 12:42 Room Air 02/08/25 08:28 Room Air 02/08/25 07:26 02/08/25 04:00 Room Air
[2025-02-08] MEDS: AMPICILLIN/SULBACTAM SOD 3,000 MG/100 ML BAG IV SCH (15:53)
[2025-02-09 08:11] LABS: Anion Gap 3.0 (3-11); Blood Urea Nitrogen 5.0 mg/dl (6-23); Calcium 8.0 mg/dl (8.6-10.3); Carbon Dioxide 28.0 mmol/L (21-32); Chloride 108.0 mmol/L (98-107); Creatinine Clr Calc Pharmacy 149.2 ml/min; Glucose 130.0 mg/dl (70-99(Fasting)); Magnesium 1.7 mg/dl (1.7-2.4); Potassium 3.2 mmol/L (3.5-5.1); Sodium 139.0 mmol/L (136-145)
--- NOTE | 2025-02-09 08:12 | Surgery Progress Note ---
Date of Service February 09, 2025 Assessment & Plan (1) Bowel perforation: Plan: Patient is status post repair of gastric perforation on 02/05/2025 (postop day #4) Pt overall feeling well. Vitals stable NGT to be continued until results of UGI today. If negative for leak we will remove it and start clears YANELI drain x2 serousang to remain in place for now On sq heparin for DVT prophylaxis; PPI IV ordered; IV ampicillin with cx's growing e.coli, appreciate ID input Encourage OOB/ambulation and pulmonary toilet As above. Awaiting upper GI. Clinically doing well Admission and Anticipated Discharge Date Admission Date: February 05, 2025 Subjective Patient doing fairly well. No n/v. + bowel function. Ambulating. Drain stitch on the left is bothering him some. Physical Exam Physical Exam: awake/alert, no distress Gastrointestinal (Abdomen): Inspection/Auscultation: + abdominal surgical incision (c/d/i with toya) and + abdominal surgical drain present (x2 serosang) Percussion/Palpation: + abdomen tender (expected post op discomfort) and abdomen soft Results & Data Vital Signs (Past 12 Hours) Vital Signs Temp Pulse Pulse Resp BP Pulse Ox Pulse Ox 02/09/25 08:07 98.1 F 79 18 135/70 99 02/09/25 04:00 95 02/09/25 03:47 98.4 F 77 16 129/93 97 02/08/25 22:33 99.0 F 84 20 125/64 98 02/08/25 22:15 84 02/08/25 20:32 99.0 F 84 18 157/89 H 99 O2 Del Method O2 Del Method 02/09/25 08:07 Room Air 02/09/25 04:00 Room Air 02/09/25 03:47 Room Air 02/08/25 22:33 Room Air 02/08/25 22:15 02/08/25 20:32 Room Air PG Care Time/CCT Total # of Minutes Spent Total Time Spent with Patient: Total time spent is greater than 50% in coordination of care (as documented) at patient's floor/unit and/or counseling patient: Coding Level of Care Code 35040 Post Operative Follow-Up Diagnoses Bowel perforation K63.1
--- NOTE | 2025-02-09 09:30 | Hospitalist Progress Note ---
Date of Service February 09, 2025 Assessment & Plan (1) Bowel perforation: Plan 59 yo M w/ PMH of type 2 diabetes, malignant neoplasm of head of pancreas, splenic vein thrombosis, paralysis of left common peroneal nerve, degenerative disc disease, chemotherapy-induced neuropathy, chronic bilateral low back pain, thyroglossal duct cyst, general anxiety disorder comes because of abdominal pain and found to have bowel perforation. Had been having ongoing abdominal pain for months but worsened on day on presentation, associated with nausea. Ran out of Flomax prescription about a week ago and having some difficulty micturating. Of note, patient was diagnosed with splenic vein thrombosis in September 2024 and he was transferred to [facility] from [facility]. He was also treated for possible splenic infarct versus abscess with antibiotics. He was discharged on Eliquis. Also saw yadiel in October 2024 and was advised to continue Eliquis. But patient says he stopped Eliquis after 1 month of taking it because he could not afford it. Bowel perforation Likely severe sepsis in the setting of bowel perforation/infection Presented w/ worsening abdominal pain Admitting Lactic acid 2.8 WBC 16, resp and pulse rate also elevated. LFTs okay. Admitting CTAP: noted small bowel perforation. s/p Exploratory Laparotomy; oversew of gastric perforation/ulcer; Presley Patch; abdominal washout - Albin Darnell DO on 02/05/2025 Was initially on zosyn started on 02/05 and changed to cefazolin once Abd Cx grew pansensitive E coli ID recommends 7 day total of antibiotics therapy Surgery planning to assess for leak today. If no leak, plan to start clears and monitor Replete hypokalemia. IV KCl ordered Mag is 1.7 today. Will give IV mag as well History of malignant neoplasm of head of the pancreas Diagnosed in 02/16/2018 Received modified FOLFIRINOX Status post Whipple's procedure 2018 No evidence of recurrence Follows with yadiel Splenic vein thrombosis and splenic infarction 09/2024 Was placed on Eliquis During that time was also treated for possible splenic abscess with antibiotics Patient stopped eliquis after 1 month because he could not afford it Dr Renae discussed with yadiel on 02/07 who recommended no need for further full anticoagulation at this time. Chemotherapy-induced neuropathy: c/w home gabapentin when able. GERD: c/w iv protonix now, to po when able. DM: SSI BPH: Patient states he ran out of prescription of Flomax about a week ago. No signs of urinary retention at this time Start flomax when taking PO. 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 Disposition: Telemetry Full code. I spent a total of 50 minutes coordinating, documenting and providing care for this patient excluding time spent in performance of separately billed services Admission and Anticipated Discharge Date Admission Date: February 05, 2025 Subjective Patient seen and examined Reports feeling better today Denied nausea or vomiting. Reports some pain at left drain site. Has NGT in place. Reports some cough but no SOB or chest pain Reported BM yesterday and this AM No urinary symptoms Physical Exam Constitutional: + well hydrated; no acute distress Eyes: PERRL, conjunctivae normal, anicteric sclerae ENMT: NGT in situ Respiratory: normal respiratory effort, lungs clear to auscultation Cardiovascular: Rate/Rhythm: regular rate and regular rhythm Gastrointestinal (Abdomen): Gamal over abd incision, [address] on both sides, soft, mild tenderness Musculoskeletal: No pedal edema Neurologic: PERRL, EOMI, accommodation nl, no face palsy, no dysarthria Psychiatric: A+Ox3, euthymic affect Results & Data Results & Data Vital Signs (Past 12 Hours) Vital Signs Temp Pulse Pulse Resp BP Pulse Ox Pulse Ox 02/09/25 08:07 36.7 C 79 18 135/70 99 02/09/25 04:00 95 02/09/25 03:47 36.9 C 77 16 129/93 97 02/08/25 22:33 37.2 C 84 20 125/64 98 02/08/25 22:15 84 O2 Del Method O2 Del Method 02/09/25 08:07 Room Air 02/09/25 04:00 Room Air 02/09/25 03:47 Room Air 02/08/25 22:33 Room Air 02/08/25 22:15 Laboratory Results Abnormal lab results 02/08/25 02/08/25 02/08/25 Range/Units 11:33 17:58 22:51 Potassium (3.5-5.1) mmol/L Chloride (98-107) mmol/L BUN (6-23) mg/dl Creatinine (0.6-1.4) mg/dl Glucose (70-99(Fasting)) mg/dl POC Glucose 158 H 115 H 128 H (70-99) mg/dl Calcium (8.6-10.3) mg/dl 02/09/25 02/09/25 Range/Units 05:05 06:58 Potassium 3.2 L (3.5-5.1) mmol/L Chloride 108 H (98-107) mmol/L BUN 5 L (6-23) mg/dl Creatinine 0.49 L (0.6-1.4) mg/dl Glucose 130 H (70-99(Fasting)) mg/dl POC Glucose 133 H (70-99) mg/dl Calcium 8.0 L (8.6-10.3) mg/dl
[2025-02-09] MEDS: POTASSIUM CHLORIDE / WTR 10 MEQ/100 ML PLCT IV SCH (09:58)
[2025-02-09] MEDS: MAGNESIUM SULFATE / D5W 1 GM/100 ML BAG IV ONE (09:58)
--- NOTE | 2025-02-09 13:34 | Fluoroscopy Report ---
FL GI series CLINICAL HISTORY: contrast via ngt, eval for leak s/p gastric perf. TECHNIQUE: A standard air contrast upper GI series was performed following administration of barium and effervescent crystals. Multiple spot fluoroscopic images were obtained and provided for review. COMPARISON STUDY: 02/05/2025 FLUOROSCOPY TIME: 0.3 minutes. FLUOROSCOPY IMAGES: 11 Ka,r: 8 FINDINGS: Nasogastric tube tip is in the proximal stomach with the sidehole near the GE junction. Pat ient swallowed liquid barium without difficulty. There is no esophageal stricture. No hiatal hernia. Contrast progresses normally through the stomach to the small bowel. There are postoperative changes at the stomach. There is no evidence of contrast leak or extravasation. IMPRESSION: No evidence of contrast leak. ACT 112: Negative or not required by law. The above report was generated using voice recognition software. It may contain grammatical, syntax o r spelling errors. Electronically signed by: Mayank Yousif M.D. 02/09/2025 1:33 PM
[2025-02-09] MEDS ORDERED: Nursing to Pharmacy Communication SCH (14:45)
[2025-02-09] MEDS: INSULIN ASPART PER UNIT CHARGE SC SCH (17:10)
[2025-02-09] MEDS: SUCRALFATE 1 GM/10 ML UDC PO SCH (21:54)
[2025-02-10 06:40] LABS: Anion Gap 6.0 (3-11); Blood Urea Nitrogen 5.0 mg/dl (6-23); Calcium 8.2 mg/dl (8.6-10.3); Carbon Dioxide 24.0 mmol/L (21-32); Chloride 110.0 mmol/L (98-107); Creatinine Clr Calc Pharmacy 158.9 ml/min; Glucose 89.0 mg/dl (70-99(Fasting)); Magnesium 1.9 mg/dl (1.7-2.4); Potassium 3.5 mmol/L (3.5-5.1); Sodium 140.0 mmol/L (136-145)
--- NOTE | 2025-02-10 08:38 | Surgery Progress Note ---
Date of Service February 10, 2025 Assessment & Plan (1) Marginal ulcer: Plan: Postop day 6 Doing well Will advance to full liquids. Will remove his drains today Hopeful discharge tomorrow Admission and Anticipated Discharge Date Admission Date: February 05, 2025 Subjective Patient seen. Doing well. Tolerating liquids Physical Exam Physical Exam: Alert no acute distress Incisions all good JPs with scant serous output Results & Data Vital Signs (Past 12 Hours) Vital Signs Temp Pulse Pulse Resp BP BP Pulse Ox 02/10/25 07:38 36.7 C 86 19 141/91 H 96 02/10/25 03:28 36.9 C 61 18 156/82 H 99 02/09/25 23:35 37.1 C 61 18 140/77 97 02/09/25 21:46 59 L O2 Del Method 02/10/25 07:38 Room Air 02/10/25 03:28 Room Air 02/09/25 23:35 Room Air 02/09/25 21:46 PG Care Time/CCT Total # of Minutes Spent Total Time Spent with Patient: Total time spent is greater than 50% in coordination of care (as documented) at patient's floor/unit and/or counseling patient: Coding Level of Care Code 94359 Post Operative Follow-Up Diagnoses Marginal ulcer K28.9
--- NOTE | 2025-02-10 09:59 | Hospitalist Progress Note ---
Date of Service February 10, 2025 Assessment & Plan (1) Bowel perforation: Plan 59 yo M w/ PMH of type 2 diabetes, malignant neoplasm of head of pancreas, splenic vein thrombosis, paralysis of left common peroneal nerve, degenerative disc disease, chemotherapy-induced neuropathy, chronic bilateral low back pain, thyroglossal duct cyst, general anxiety disorder comes because of abdominal pain and found to have bowel perforation. Had been having ongoing abdominal pain for months but worsened on day on presentation, associated with nausea. Ran out of Flomax prescription about a week ago and having some difficulty micturating. Of note, patient was diagnosed with splenic vein thrombosis in September 2024 and he was transferred to [place] from [facility]. He was also treated for possible splenic infarct versus abscess with antibiotics. He was discharged on Eliquis. Also saw [facility] in October 2024 and was advised to continue Eliquis. But patient says he stopped Eliquis after 1 month of taking it because he could not afford it. Bowel perforation Likely severe sepsis in the setting of bowel perforation/infection Presented w/ worsening abdominal pain Admitting Lactic acid 2.8 WBC 16, resp and pulse rate also elevated. LFTs okay. Admitting CTAP: noted small bowel perforation. s/p Exploratory Laparotomy; oversew of gastric perforation/ulcer; Presley Patch; abdominal washout - Albin Darnell DO on 02/05/2025 Was initially on zosyn started on 02/05 and changed to cefazolin once Abd Cx grew pansensitive E coli ID recommends 7 day total of antibiotics therapy. 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 Chemotherapy-induced neuropathy: c/w home gabapentin when able. GERD: c/w iv protonix now, to po when able. DM: SSI BPH: Patient states he ran out of prescription of Flomax about a week ago. No signs of urinary retention at this time Resumed PHYSICIAN GYNECOLOGIST flomax General Anxiety disorder: Resume PHYSICIAN GYNECOLOGIST buspirone DVT prophylaxis: Hep SC. Disposition: Telemetry Full code. I spent a total of 50 minutes coordinating, documenting and providing care for this patient excluding time spent in performance of separately billed services Admission and Anticipated Discharge Date Admission Date: February 05, 2025 Subjective Patient seen and examined Had abd drains taken out today and diet advanced to full liquid No new complaints Tolerating diet Physical Exam Constitutional: + well hydrated; no acute distress Eyes: PERRL, conjunctivae normal, anicteric sclerae ENMT: external ear and nose normal, oropharynx normal Respiratory: normal respiratory effort, lungs clear to auscultation Cardiovascular: Rate/Rhythm: regular rate and regular rhythm Gastrointestinal (Abdomen): Soft, abdominal wall incisions looks good, normal bowel sounds Musculoskeletal: No pedal edema Neurologic: PERRL, EOMI, accommodation nl, no face palsy, no dysarthria Psychiatric: A+Ox3, euthymic affect Results & Data Results & Data Vital Signs (Past 12 Hours) Vital Signs Temp Pulse Resp BP BP Pulse Ox O2 Del Method 02/10/25 07:38 36.7 C 86 19 141/91 H 96 Room Air 02/10/25 03:28 36.9 C 61 18 156/82 H 99 Room Air 02/09/25 23:35 37.1 C 61 18 140/77 97 Room Air Laboratory Results Abnormal lab results 02/09/25 02/10/25 02/10/25 Range/Units 22:04 05:35 07:36 Chloride 110 H (98-107) mmol/L BUN 5 L (6-23) mg/dl Creatinine 0.46 L (0.6-1.4) mg/dl POC Glucose 147 H 113 H (70-99) mg/dl Calcium 8.2 L (8.6-10.3) mg/dl
[2025-02-10] MEDS: PANCREAZE (LIPASE 10,500U) CAP PO SCH (16:47)
[2025-02-10] MEDS: busPIRone 5 MG TAB PO SCH (20:03)
[2025-02-10 20:39] VITALS: RESP 18
[2025-02-10] MEDS: MELATONIN 3 MG TAB PO PRN (23:53)
[2025-02-11 06:30] LABS: Anion Gap 6.0 (3-11); Blood Urea Nitrogen 7.0 mg/dl (6-23); Calcium 8.2 mg/dl (8.6-10.3); Carbon Dioxide 27.0 mmol/L (21-32); Chloride 108.0 mmol/L (98-107); Creatinine Clr Calc Pharmacy 123.1 ml/min; Glucose 98.0 mg/dl (70-99(Fasting)); Magnesium 1.8 mg/dl (1.7-2.4); Potassium 3.2 mmol/L (3.5-5.1); Sodium 141.0 mmol/L (136-145)
--- NOTE | 2025-02-11 07:37 | Surgery Progress Note ---
Date of Service February 11, 2025 Assessment & Plan (1) Bowel perforation: Plan: s/p ex lap with repair of gastric perforation UGI this week showed no evidence of leak. he is tolerating diet advancement, will move to low fiber this AM Midline incision c/d/i with toya, no signs of infection. may leave open to air, YANELI drains removed Continue BID PPI, & Carafate. Avoid NSAIDs F/u in office with dr. stewart in 1-2 weeks As above. Doing well. Okay for discharge. Will need to be on Carafate and Protonix. I would like to see him in 1 to 2 weeks for follow-up. Admission and Anticipated Discharge Date Admission Date: February 05, 2025 Subjective Patient is doing well. Tolerating full liquids. Pain controlled. + Bowel function. Reports he is ready to go home Physical Exam Physical Exam: awake/alert, no distress Respiratory: normal respiratory effort Gastrointestinal (Abdomen): Inspection/Auscultation: + abdominal surgical incision (midline incision w/ toya, c/d/i,no signs of infection. YANELI drains removed) Percussion/Palpation: abdomen soft Results & Data Vital Signs (Past 12 Hours) Vital Signs Temp Pulse Pulse Resp BP Pulse Ox O2 Del Method 02/11/25 07:28 67 02/11/25 03:39 98.2 F 66 18 150/90 H 98 Room Air 02/10/25 23:14 80 02/10/25 23:13 98.4 F 66 18 144/82 H 98 Room Air 02/10/25 20:00 98.8 F 75 18 145/85 H 98 Room Air PG Care Time/CCT Total # of Minutes Spent Total Time Spent with Patient: Total time spent is greater than 50% in coordination of care (as documented) at patient's floor/unit and/or counseling patient: Coding Level of Care Code 61866 Post Operative Follow-Up Diagnoses Bowel perforation K63.1
[2025-02-11] MEDS: POTASSIUM CHLORIDE CRTAB 20 MEQ TABCR PO STA (08:13)
[2025-02-11] MEDS: TAMSULOSIN HCL 0.4 MG CAP PO SCH (08:14)
[2025-02-11 08:27] VITALS: BP 146/80; PULSE 82; TEMP 98.1; O2SAT 100
--- NOTE | 2025-02-11 09:58 | Discharge Summary ---
Date of Service February 11, 2025 Admission HPI Per Admitting Provider 59-year-old male with past medical history significant for type 2 diabetes, history of malignant neoplasm of head of pancreas, history of splenic vein thrombosis, history of paralysis of left common peroneal nerve, degenerative disc disease, chemotherapy-induced neuropathy, chronic bilateral low back pain, thyroglossal duct cyst, general anxiety disorder comes because of abdominal pain and found to have bowel perforation. Patient states ongoing abdominal pain for months but today the pain was very severe. And was nauseous. Earlier today had normal bowel movement. Denies any blood in the stools. Denies any fevers. Denies any chest pain. Having short of breath when the pain was severe. No headache. No sore throat or cough.Ran out of Flomax prescription about a week ago and having some difficulty micturating. Hemodynamics are okay. Patient was diagnosed with splenic vein thrombosis in September 2024 and he was transferred to [place] from [facility]. He was also treated for possible splenic infarct versus abscess with antibiotics. He was discharged on Eliquis. Also saw heme- onc in October 2024 and was advised to continue Eliquis. But patient says he stopped Eliquis after 1 month of taking it because he could not afford it. Past medical history. As mentioned above. Past surgical history. Colonoscopy. EGD. EGD with endoscopic ultrasound. Status post Whipple's procedure. Right shoulder arthroscopy. Social history. . Smoked 0.5 pack a day for 13.5 years. No alcohol use. Uses marijuana as per epic. Admission Exam Per Admitting Provider General- Not in acute distress Head- atraumatic Eyes- PERRL. ENT- oropharynx clear Neck- supple, no JVD. Lungs- clear to auscultation no wheezing or crackles Heart- regular rhythm; no murmur, no gallop. Abdomen- bowel sounds sluggish, diffuse tender and guarding, no distension Extremities- no pretibial edema, no erythema seen. Neuro- alert, oriented PERRL, no facial palsy; no dysarthria; moves extremities Principal Diagnosis Gastric perforation Status post repair of perforation Discharge Exam Constitutional + well hydrated; no acute distress Eyes PERRL, conjunctivae normal, anicteric sclerae ENMT external ear and nose normal, oropharynx normal Respiratory normal respiratory effort, lungs clear to auscultation Cardiovascular Rate/Rhythm: regular rate and regular rhythm Gastrointestinal (Abdomen) Soft, abdominal incision healing well, normal bowel sounds Musculoskeletal No pedal edema Neurologic PERRL, EOMI, accommodation nl, no face palsy, no dysarthria Psychiatric A+Ox3, euthymic affect Discharge Data Allergies Allergy/AdvReac Type Severity Reaction Status Date / Time No Known Allergies Allergy Verified 02/04/25 22:27 Consultations 02/04/25 23:54 Consult General Surgery Routine ED Decision to Admit Stat 02/06/25 13:09 Consult Infectious Diseases Routine Procedures Performed Operation Date: 02/05/25 00:30 Actual Procedures p Exploratory Laparotomy(Not Applicable) - Albin Darnell DO Ordered Studies 02/04/25 21:00 CT abd pelvis IV con only Stat Hospital Course (1) Bowel perforation: Plan 59 yo M w/ PMH of type 2 diabetes, malignant neoplasm of head of pancreas, splenic vein thrombosis, paralysis of left common peroneal nerve, degenerative disc disease, chemotherapy-induced neuropathy, chronic bilateral low back pain, thyroglossal duct cyst, general anxiety disorder comes because of abdominal pain and found to have bowel perforation. Had been having ongoing abdominal pain for months but worsened on day on presentation, associated with nausea. Ran out of Flomax prescription about a week ago and having some difficulty micturating. Of note, patient was diagnosed with splenic vein thrombosis in September 2024 and he was transferred to [place] from [facility]. He was also treated for possible splenic infarct versus abscess with antibiotics. He was discharged on Eliquis. Also saw heme-onc in October 2024 and was advised to continue Eliquis. But patient says he stopped Eliquis after 1 month of taking it because he could not afford it. Bowel perforation Likely severe sepsis in the setting of bowel perforation/infection Presented w/ worsening abdominal pain Admitting Lactic acid 2.8 WBC 16, resp and pulse rate also elevated. LFTs okay. Admitting CTAP: noted small bowel perforation. s/p Exploratory Laparotomy; oversew of gastric perforation/ulcer; Presley Patch; abdominal washout - Albin Darnell DO on 02/05/2025 Was initially on zosyn started on 02/05 and changed to cefazolin once Abd Cx grew pansensitive E coli ID evaluated and recommended 7 day total of antibiotics therapy. Completed antibiotics today Patient tolerating low fiber diet He is to follow up with General surgery Avoid NSAIDs Discharged on PPI BID and Carafate BID per surgery History of malignant neoplasm of head of the pancreas Diagnosed in 02/16/2018 Received modified FOLFIRINOX Status post Whipple's procedure 2018 No evidence of recurrence Follows with heme-onc Added pancrealipase with meals. 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 During that time was also treated for possible splenic abscess with antibiotics Patient stopped eliquis after 1 month because he could not afford it Dr Renae discussed with heme-onc on 02/07 who recommended no need for further full anticoagulation at this time. BPH: Patient states he ran out of prescription of Flomax about a week ago. No signs of urinary retention at this time Resumed FINANCE CONSULTANT flomax. Script sent to his pharm Total Time Total Time Spent Total Time Spent (In Minutes): 35 Total Time Includes: Examination of the Patient, Discharge Planning, Medication Reconciliation and Communication With Other Providers Discharge Plan Discharge Items Patient Disposition: Home - Self-Care Reason For Visit: Abdominal Pain Discharge Diagnosis: Gastric perforation Status post repair of perforation Condition on Discharge: Fair Activity: Per Instructions section Lifting: No more than 10 pounds Bathing Comment: may shower; no soaking in tubs/pools x 2 weeks Exercise/Sports: Wait until after follow-up appointment Driving/Machine Use: no driving while on narcotics for pain Non-emergency contact: Primary Care Provider and Surgeon Call non-emergency contact if: you have any medication questions, your symptoms worsen, your pain is not controlled, you have a fever, your temperature is above 101.5, your wound has increased redness, your wound has increased drainage and your wound pain has increased Follow-up/Referrals: Albin Darnell DO [Surgeon] - 02/23/25 11:30 am (Hospital follow up on February 23 at 11:30 am.) Sukhjinder Buck MD [Primary Care Provider] - (Date & Time 02/17/2025 11:40 AM Provider: Jose Alfredo Judge MD Family [facility]) Diet: Low Fiber Addtl Attending Provider Instructions: SPECIAL CARE INSTRUCTIONS: * You have toya in place in your incisions that will be removed at your follow up appointment (about 14 days from surgery). You may keep the incisions covered if you wish to collect any drainage and/or for comfort. Otherwise okay to leave them open to air. *Where your surgical drains have been removed you may change the dressings daily with dry gauze/medical tape until no longer leaking fluid and are healed closed. * You may shower. NO soaking in pools or baths for 2 weeks * No lifting greater than 10lbs. No strenuous exercise until cleared by surgeon. Light walking is accepted. * No driving while taking narcotic pain medication; wait at least 3 days * No drinking alcohol while taking narcotic pain medication * May use Tylenol over the counter for pain as tolerated. Do not exceed 3grams of Tylenol per 24 hours * Expect some swelling and bruising. * Diet- low fiber * Continue a twice daily PPI (proton pump inhibitor) * AVOID NSAIDS such as ibuprofen, advil, etc products Call your doctor if: * Temperature above 101 degrees, nausea/vomiting, fever/chills * Pain not relieved by pain medicine ordered * There is increased drainage or redness from any incision * You have any unanswered questions or concerns [phone]. FOLLOW UP VISIT: If not already scheduled, please call the office for a follow-up visit. Office Pending Studies at Discharge: No Stand-Alone Forms: My [facility], Smoking Cessation, Important Visit Information Medications and DC Order Prescriptions: New sucralfate [Carafate] 100 mg/mL suspension 1 g PO BID 28 Days Qty: 560 0RF pantoprazole [Protonix] 40 mg tablet,delayed release (DR/EC) 40 mg PO BID 30 Days Qty: 60 0RF Creon 36,000-114,000- 180,000 unit Capsule,Delayed Release(Dr/Ec) 1 cap PO AC Qty: 90 0RF Rx Instructions: With meals Continued gabapentin 600 mg tablet 600 mg PO TID hydrocodone-acetaminophen 10-325 mg tablet 1 tab PO DAILY buspirone 10 mg tablet 10 mg PO BID pioglitazone 30 mg tablet 30 mg PO DAILY tamsulosin [Flomax] 0.4 mg capsule 0.8 mg PO QAM Qty: 60 0RF Discontinued omeprazole 20 mg capsule,delayed release(DR/EC) 20 mg PO DAILY Discharge Orders: Discharge Order (Routine); Ordered 02/11/25 Ordered By: Grace Neumann/Other Patient Handouts: A1C, Low-Fiber Diet, Managing Type 2 Diabetes Admission Data Admit Date/Time: 02/05/25 00:26 Attending Provider: Grace Smith I. Admit Provider: Garth Doty Primary Care Provider: Sukhjinder Buck Other Providers: Garth Doty; Albin Darnell; Cesar Villalpando; Bita Seaman; Levy De León I.; Roly Vlilaseñor II; Katia Cooper; Crescencio Wong; Albino Garcia; Cecily Galo; Josiah Renae Other Interventions: Discharge Summary Assessment (RN) Last Done: 02/11/25 10:11
== END 2025-02-11 12:16 | disposition home or self-care (01) | DRG 853 ==
LOC: ED 20:53 → SUATTDRO 02-05 00:26 → OR 02-05 00:50 → 2E 02-05 04:04 → SUATTDRO 02-05 04:04

== ENCOUNTER 2025-03-16 19:52 | Inpatient (IN) ==
[2025-03-16] MEDS: SODIUM CHLORIDE 0.9% 500 ML IV STA (20:30)
[2025-03-16] MEDS: ACETAMINOPHEN 1,000 MG/100 ML VIAL IV STA (20:31)
--- NOTE | 2025-03-16 20:40 | Emergency Department Note ---
ED Visit Note I was consulted by the Advanced Practice Provider, []. I performed a substantive portion of the visit. This includes aspects of: History: Patient is a 59-year-old male presenting with abdominal pain. He has a history of pancreatic cancer and is status postsurgical procedure. He had a gastric perforation and had surgery in January 2025. He presented with worsening abdominal pain and pain behind his abdominal incision starting last week. Denies any nausea or vomiting. He states he drank some alcohol today to help with the pain. MDM: - Laboratory workup in the emergency department showed a normal WBC; anemia (Hgb 8.9); stable electrolytes other than hypocalcemia; chronically elevated AST (45); elevated alcohol - CT abdomen/pelvis with IV contrast showed a small bowel ileus. - Patient to be admitted to hospitalist service for further evaluation. .
--- NOTE | 2025-03-16 20:41 | Emergency Department Note ---
ED Provider Note History of Present Illness Chief Complaint: Urinary Symptoms Stated Complaint: PAIN IN GUT POST JUAN CARLOS CANT PE Time Seen by Provider: 03/16/25 20:08 Source: patient Mode of arrival: ambulatory Limitations: no limitations Home Medications Medication Instructions Recorded Confirmed Type buspirone 10 mg tablet 10 mg PO BID 10/05/24 02/04/25 History gabapentin 600 mg tablet 600 mg PO TID 10/05/24 02/04/25 History pioglitazone 30 mg tablet 30 mg PO DAILY 10/05/24 02/04/25 History [id number] 1 cap PO AC #90 caps 02/11/25 Rx 36,000-114,000-180,000 unit capsule,delay rel (Creon) tamsulosin 0.4 mg capsule (Flomax) 0.8 mg (2 x 0.4 mg) PO QAM #60 caps 02/11/25 Rx Allergies Allergy/AdvReac Type Severity Reaction Status Date / Time No Known Allergies Allergy Verified 02/23/25 11:18 Past Med/Surg History Problem List (Updated 03/14/25 @ 00:07 by Mahi Diez) Marginal ulcer Bacterial peritonitis Abdominal pain (Acute) Bowel perforation (Acute) Chemotherapy-induced neuropathy BPH (benign prostatic hyperplasia) GI bleed (Acute) Hematuria (Acute) History of pancreatic cancer (Acute) Obstructive jaundice (Acute) Medical History Pancreatic cancer Dx in 2018, underwent Whipple and chemo (completed in 2019) Surgical History History of arthroscopy of shoulder x 2 History of Whipple procedure Social History Smoking Status: Current every day smoker Tobacco Type: Cigarettes Cigarettes Per Day: 1 pack; Do You Dip or Chew Tobacco: No; Hx Alcohol Use: Yes Hx Substance Use: Yes Preferred Language: Vietnamese Communication Ability: Effective Life Skills Specialist Required: No Beliefs That Will Affect Care: None Current Living Situation: Spouse Feels Safe at Home: Yes Assistive Devices: Cane and Walker Physical Exam Vital Signs Vital Signs - 24 hr 03/16/25 19:59 Temperature 36 C L Temperature Source Temporal Artery Scan Pulse Rate 102 H Respiratory Rate 18 Blood Pressure 108/71 Blood Pressure Mean 83 Pulse Oximetry 99 Oxygen Delivery Method Room Air Sepsis Recent Fever Within 48 Hours No Sepsis New/Unexplained Change in Mental Status No Sepsis Action Taken by Nursing No Action Required Course Administered Medications Sodium Chloride (Nss) 500 mls @ 999 mls/hr IV .Q31M STA Stop: 03/16/25 20:43 Last Admin: 03/16/25 20:30 Dose: 999 mls/hr Documented By: MED Discontinued Medications Acetaminophen (Ofirmev) 1,000 mg in 100 mls @ 400 mls/hr IV NOW STA Stop: 03/16/25 20:27 Last Admin: 03/16/25 20:31 Dose: 400 mls/hr Documented By: MED Medical Decision Making Laboratory Data 03/16/25 20:29 03/16/25 20:29 Discharge Plan Visit Data Chief Complaint: Urinary Symptoms Stated Complaint: PAIN IN GUT POST JUAN CARLOS CANT PE ED Provider: Amber Scott ED Midlevel Provider: Jelena Real Forms Stand Alone Forms: [facility] Prescriptions Prescriptions: No Action gabapentin 600 mg tablet 600 mg PO TID buspirone 10 mg tablet 10 mg PO BID pioglitazone 30 mg tablet 30 mg PO DAILY Creon 36,000-114,000- 180,000 unit Capsule,Delayed Release(Dr/Ec) 1 cap PO AC Qty: 90 0RF Rx Instructions: With meals tamsulosin [Flomax] 0.4 mg capsule 0.8 mg PO QAM Qty: 60 0RF Referrals Referrals: Sukhjinder Buck MD [Primary Care Provider] -
[2025-03-16 20:46] LABS: Hematocrit (blood only) 29.3 % (42.0-52.0); Hemoglobin 9.6 g/dl (14.0-18.0); Immature Granulocytes # (auto) 0.06 K/uL (0.01-0.20); Immature Granulocytes % (auto) 0.6 %; Mean Corpuscular Hemoglobin 27.3 pg (25.0-34.0); Mean Corpuscular Volume 83.2 fL (80.0-100.0); Platelet Count 184 K/uL (130-400); RDW Standard Deviation 53.0 fL (36.4-46.3); Red Blood Count 3.52 M/uL (4.70-6.10); White Blood Count 10.55 K/ul (4.8-10.8)
[2025-03-16 21:00] LABS: Appearance Urine Clear (Clear); Glucose Urine UA Negative (Negative)
[2025-03-16 21:07] LABS: Alanine Aminotransferase 45.0 U/L (7-52); Albumin Globulin Ratio 1.0 (0.9-2); Alkaline Phosphatase 102.0 U/L (34-104); Anion Gap 8.0 (3-11); Bilirubin,Total 0.3 mg/dl (0.2-1.0); Blood Urea Nitrogen 8.0 mg/dl (6-23); Calcium 8.3 mg/dl (8.6-10.3); Carbon Dioxide 22.0 mmol/L (21-32); Chloride 110.0 mmol/L (98-107); Creatinine Clr Calc Pharmacy 79.4 ml/min; Globulin 2.9 gm/dl (2.5-4.0); Glucose 146.0 mg/dl (70-99(Fasting)); Lipase 8.0 U/L (11-82); Potassium 4.0 mmol/L (3.5-5.1); Sodium 140.0 mmol/L (136-145); Total Protein 5.7 gm/dl (6.0-8.3)
[2025-03-16] MEDS: OPTIRAY 320 100ml IV ONE (21:30)
--- NOTE | 2025-03-16 22:32 | CT Scan Report ---
Exam(s): CT ABDOMEN + PELVIS With Contrast IV Amt: 93 ml optiray 320 EXAM: CT Abdomen and Pelvis With Intravenous Contrast CLINICAL HISTORY: Reason for exam: abdominal pain, recent abd sx. TECHNIQUE: Axial computed tomography images of the abdomen and pelvis with intravenous contrast. CTDI is 13.42 mGy and DLP is 627.78 mGy-cm. Automated exposure control was utilized for the study. A dose lowering technique was utilized adhering to the principles of ALARA. CONTRAST: Patient received 93 ml optiray 320 of IV contrast COMPARISON: No relevant prior studies available. FINDINGS: Lung bases: Lung bases are clear. No consolidation. ABDOMEN: Liver: Unremarkable. No mass. Gallbladder and bile ducts: Postop changes prior cholecystectomy. No ductal dilation. Pancreas: Unremarkable. No mass. No ductal dilation. Spleen: Unremarkable. No splenomegaly. Adrenals: Unremarkable. No mass. Kidneys and ureters: Unremarkable. No solid mass. No hydronephrosis. Stomach and bowel: See below. PELVIS: Appendix: No findings to suggest acute appendicitis. Bladder: Unremarkable. No mass. Reproductive: Partially calcified prostate. ABDOMEN and PELVIS: Intraperitoneal space: Interval resolution of wall thickening involving numerous loops of small bowel within the left midabdomen. No free air identified on this exam. There is a moderate amount of fluid seen within mildly distended loops of small bowel. No clear transition point is identified on this exam. Findings are consistent with ileus within same extensive wall thickening and inflammatory changes about the stomach.. Bones/joints: No acute fracture. No dislocation. Soft tissues: Unremarkable. Vasculature: Unremarkable. No abdominal aortic aneurysm. Lymph nodes: Unremarkable. No enlarged lymph nodes. IMPRESSION: Findings consistent with a small-bowel ileus There is a tiny locule of extraluminal gas seen within the gallbladder fossa. Correlate with patient's clinical history as extraluminal gas may be a normal finding in the setting of recent surgery. In the absence of such a history, microperforation is suspected. The source of this is not clearly identified on this exam Marked gastritis Communications: Call Doctor Pneumoperitoneum, new or unexpected Electronically signed by: Ismael Way MD 03/16/25 22:31 PM
[2025-03-16] MEDS: PANTOprazole 40 MG/10 ML SYR IV ONE (23:12)
[2025-03-16] MEDS: PIPERACILLIN/TAZOBACTAM 4.5 GM/100 ML BAG IV ONE (23:15)
[2025-03-16 23:21] LABS: Magnesium 2.1 mg/dl (1.7-2.4)
[2025-03-16] MEDS: LACTATED RINGER'S 1,000 ML IV ONE (23:24)
--- NOTE | 2025-03-16 23:25 | Surgery Consultation ---
<Statement entered by Jorge Neal, - 03/17/25 20:15> I discussed this case with the surgical PA and will initiate conservative management at this time with expectation to perform UGI study Date of Consultation March 16, 2025 Assessment & Plan (1) Abdominal pain: I discussed with the treating clinician in the emergency department the patient is going to be admitted on the hospitalist service. From a surgical perspective we recommend the following: Although there is no gross pneumoperitoneum noted on patient's CT scan there is a tiny locule of free air identified by radiology concerning for microperforation (the interpreting radiologist could not readily identify the source of this air). Given the patient's recent surgery with Dr. Darnell for a perforated ulcer at the gastrojejunostomy anastomosis, this remains another concern again and therefore we will proceed as follows: Analgesics to be provided Antiemetic should be provided As the patient is not experience any nausea or vomiting since his pain began and his abdomen is not distended I feel we can hold on placing NG tube at this time. If his clinical course dictates this modality can be reconsidered at a later time The patient should be kept strict n.p.o. Intravenous fluids to be utilized for hydration/resuscitation A proton pump inhibitor will be initiated Due to concern for potential microperforation we will initiate antibiotics form of Zosyn NSAIDs are to be avoided Alcohol should be avoided when patient is discharged from the hospital as this could contribute to his abdominal pain. Although the patient says he only had one half of a 16 ounce beer and has not been drinking much, his alcohol level on laboratory analysis suggest that he may have consumed more than what was reported I discussed with the nursing staff that we would like to have the patient on intravenous fluids, Protonix, and antibiotics soon as possible. These orders have been placed I have also discussed with pharmacy. In addition, I discussed with nursing staff that the patient was be kept strict n.p.o. due to the CT scan findings The case will be discussed with Dr. Darnell the morning of 03/17/2025 and the determination will be made about the next best course of action. Dr. Darnell was considering performing upper endoscopy on this patient in the future, however given the CT scan findings he may wish to hold on this study and instead potentially opt for a upper GI series to see if there is any contrast extravasation suggestive of a microperforation. Would recommend utilizing only SCDs for DVT prevention, no chemical means for the present time Additional recommendations will be forthcoming based on his clinical course as unfolds History of Present Illness Reason for Consultation: Abdominal pain History of Present Illness This is a 59-year-old male well-known to [facility] physician group general surgery. On 02/05/2025 patient presented to the emergency department secondary to abdominal pain. During this encounter the patient CT scan of the abdomen pelvis that showed the patient had marked thickening of the wall of his small bowel in the left side of his abdomen with concern/evidence of perforation. The patient was taken to the operating room with Dr. Darnell on this evening where patient was noted to have a perforation at the site of a previous gastrojejunostomy the patient had from a previous Whipple procedure. Dr. Darnell performed a Presley patch at this time. Following the surgery the patient was kept strict n.p.o. until several days after his surgery he underwent an upper GI series which showed no evidence of contrast extravasation. Patient subsequently had his diet advanced in the appropriate fashion and was tolerating a low fiber diet by the time of discharge. He was discharged home and was instructed to avoid NSAIDs which the patient claims he has been doing. He was also discharged on twice daily Protonix and twice daily Carafate. (The patient is unsure if he has been taking these last 2 medications). The patient's date of discharge was 02/11/2025. Patient did see Dr. Darnell in follow-up in the general surgery clinic on 02/23/2025. During this time the patient was doing well but there was concern the patient had not picked up his Carafate and Protonix until approximately 2 weeks after his discharge from the hospital. Dr. Darnell did safety counselor the patient on the importance of taking these medications as prescribed due to the findings at the time of surgery. Dr. Darnell noted in his report that there would be future plans to perform an EGD to evaluate his ulcer site (he notes he was going to plan this procedure approximately 4 weeks from his date of visit). It is noteworthy to mention that prior to the surgery performed by Dr. Darnell the patient did have a surgical history consistent with a Whipple procedure performed by Dr. Boykin in 2018 at [facility] in [place], [place], performed secondary to pancreatic cancer. Patient said that he did receive chemotherapy following this procedure which concluded in October 2018. Patient presented to the emergency department this evening secondary to worsening abdominal pain. Patient says that he has been having some abdominal pain for approximately 2 weeks but it got markedly worse this evening causing his visit to the emergency department. He says the pain is located primarily in the epigastric area without radiation or modifying factors. He specifically notes that the pain is unrelated to meals. He notes his most recent oral intake was at approximately 5:00 PM this evening at which time he ate a hotdog and some bread and this did not affect his pain whatsoever. He notes he had a normal bowel movement today and denies any bright red blood per rectum, hematochezia, or melanotic stools. He says he has not been having any fevers. He denies any episodes of nausea or vomiting. He notes that the pain was not affected by the car ride to the hospital. In addition, the patient notes that he is having some difficulty urinating. He notes that his urine stream is noted to have a de crease strength from what was usual for him. In addition to what is noted above I did ask the patient if he has been consuming any alcoholic beverages and he claims that he only had one half of a 16 ounce beer this evening, which he took to see if this would alleviate any of his pain. He further reports that he has not been drinking much in the way of alcohol since his surgery with Dr. Darnell earlier this year. Since arrival to the hospital this evening the patient has had labs and imaging which I independently reviewed. Patient did have a CT scan of the abdomen pelvis. This showed that no gross free air was identified on this study, however there was a tiny locule of extraluminal gas within the proximity of the gallbladder fossa concerning for a possible microperforation. The interpreting radiologist could not readily identify the source of this locule of air. The patient also had findings consistent with a small bowel ileus. Labs included CBC white blood cell count platelet count were normal. Hemoglobin and hematocrit were 9.6 and 29.3. Chemistry profile showed sodium, potassium, BUN, and creatinine were all normal. There is no elevation of patient's lipase. Total bilirubin, ALT, and alkaline phosphatase were all normal. There is only a slight elevation of his AST at 41. Patient also had his alcohol level checked which was markedly elevated at 125.7. At the time of my interview the patient was resting comfortably in bed he did not appear to be in any distress. Allergies Allergy/AdvReac Type Severity Reaction Status Date / Time No Known Allergies Allergy Verified 02/23/25 11:18 Home Medications Medication Instructions Recorded Confirmed Type buspirone 10 mg tablet 10 mg PO BID 10/05/24 03/16/25 History gabapentin 600 mg tablet 600 mg PO TID 10/05/24 03/16/25 History pioglitazone 30 mg tablet 30 mg PO DAILY 10/05/24 03/16/25 History [id number] 1 cap PO AC #90 caps 02/11/25 03/16/25 Rx 36,000-114,000-180,000 unit capsule,delay rel (Creon) tamsulosin 0.4 mg capsule (Flomax) 0.8 mg (2 x 0.4 mg) PO QAM #60 caps 02/11/25 03/16/25 Rx empagliflozin 10 mg tablet 10 mg PO QAM 03/16/25 03/16/25 History hydrocodone 10 mg-acetaminophen 1 tab PO DAILY PRN pain,severe 03/16/25 03/16/25 History 325 mg tablet pantoprazole 40 mg tablet,delayed 40 mg PO AMHS 03/16/25 03/16/25 History release Patient History Medical History Pancreatic cancer Dx in 2018, underwent Whipple and chemo (completed in 2019) Surgical History History of arthroscopy of shoulder x 2 History of Whipple procedure Social History Smoking Status: Current every day smoker Tobacco Type: Cigarettes Cigarettes Per Day: 1 pack; Do You Dip or Chew Tobacco: No; Hx Alcohol Use: Yes Hx Substance Use: Yes Preferred Language: Kiswahili Communication Ability: Effective Financial Retirement Plan Specialist Required: No Beliefs That Will Affect Care: None Current Living Situation: Spouse Feels Safe at Home: Yes Assistive Devices: Cane and Walker Review of Systems Review of Systems: All systems reviewed & are unremarkable except as noted in HPI & below Physical Exam Constitutional: + thin; no acute distress Eyes: no conjunctival abnormality ENMT: Ears: no hearing impairment and no external ear abnormality Mouth: no oropharynx abnormality Neck: trachea midline Respiratory: normal respiratory effort; no respiratory distress and no labored breathing Cardiovascular: Rate/Rhythm: regular rate and regular rhythm Vessels: dorsalis pedis pulses present and radial pulses present Gastrointestinal (Abdomen): At the time of my exam the patient's abdomen is noted to be soft without distention. There is no rigidity, rebound tenderness, guarding, or signs of peritonitis. The patient did have tenderness with palpation in the epigastric area. The patient has a midline incision that appears to be well-healed. Musculoskeletal: No calf tenderness Skin: no rashes Neurologic: moves all extremities Psychiatric: A+Ox3, euthymic affect Results & Data Vital Signs (Past 12 Hours) Vital Signs Temp Pulse Resp BP Pulse Ox O2 Del Method 03/16/25 22:58 Room Air 03/16/25 19:59 36 C L 102 H 18 108/71 99 Room Air PG Care Time/CCT Total # of Minutes Spent Total Time Spent with Patient: Total time spent is greater than 50% in coordination of care (as documented) at patient's floor/unit and/or counseling patient: Coding Level of Care Code 22296 OFFICE CONSULT LVL 55M Diagnoses Abdominal pain R10.9
--- NOTE | 2025-03-16 23:44 | History & Physical Report ---
Date of Service March 16, 2025 Assessment & Plan (1) Abdominal pain: Plan Assessment and plan below following discussion of case with ED provider and reviewing patient history/pertinent normal/abnormal diagnostic test results. Abdominal pain history of pancreatic cancer status post surgery (2018)/chemotherapy history of gastric perforation status post recent surgery (01/2025) Ileus, possible microperforation on CT imaging No sepsis for now hx splenic vein thrombosis status post Eliquis DM 2 on oral medications, reasonable control as of recent hemoglobin A1c of 7.1 last January 2025 BPH on Flomax chronic anemia, hemoglobin at baseline anxiety/mood disorder, stable ongoing tobacco abuse Admit to [facility] General Surgery consult re: abdominal pain, abnormal CTAP (ED provider already in touch with service. Strict n.p.o. status, IV Zosyn and PPI recommended.) ISS BG goal 110-140 Nicotine patch as needed DVT prophylaxis. SCDs for now as per General Surgery recommendations Full code Text document was generated using [employer] voice recognition software. It may contain grammatical or spelling errors. Kindly contact undersigned for clarification of any documentation item in question. History of Present Illness Chief Complaint: Abdominal pain Primary Care Provider: Dr. Bustillo History obtained from patient and records. Medical history significant for history of pancreatic cancer status post surgery (2017)/chemotherapy, history of gastric perforation status post recent surgery (01/2025), splenic vein thrombosis status post Eliquis, DM 2 on oral medications, BPH, chronic anemia (baseline hemoglobin 9-10), anxiety/mood disorder, ongoing tobacco abuse. Recent [facility] confinement last January, for gastric perforation status post surgery. Patient found to have perforated marginal ulcer at the site of previous gastrojejunostomy from prior Whipple procedure. Gastric perforation/ulcer oversewn with Presley patch placement done followed by washout. Patient doing well on outpatient follow-up with [facility] surgeon 3 weeks ago. Last week, patient noted worsening achy abdominal pain behind abdominal incision. Denies nausea, vomiting. Good BM. No fever, no chills. Patient ingested alcohol today to help with the pain. Patient consulted ER for worsening symptoms. IV Zosyn and PPI administered at the ER. Medical History as above Surgical History : Partial Whipple procedure, gastric ulcer surgery, shoulder surgeries, a port procedure, Family History : Heart disease Personal/Social history : Half pack daily, occasional EtOH intake, retired Allergies Allergy/AdvReac Type Severity Reaction Status Date / Time No Known Allergies Allergy Verified 02/23/25 11:18 Home Medications Medication Instructions Recorded Confirmed Type buspirone 10 mg tablet 10 mg PO BID 10/05/24 03/16/25 History gabapentin 600 mg tablet 600 mg PO TID 10/05/24 03/16/25 History pioglitazone 30 mg tablet 30 mg PO QAM 10/05/24 03/16/25 History [id number]-[id number]-rpawjei 1 cap PO AC #90 caps 02/11/25 03/16/25 Rx 36,000-114,000-180,000 unit capsule,delay rel (Creon) tamsulosin 0.4 mg capsule (Flomax) 0.8 mg (2 x 0.4 mg) PO QAM #60 caps 02/11/25 03/16/25 Rx hydrocodone 10 mg-acetaminophen 1 tab PO DAILY PRN pain,severe 03/16/25 03/16/25 History 325 mg tablet pantoprazole 40 mg tablet,delayed 40 mg PO AMHS 03/16/25 03/16/25 History release Past Med/Surg History Problem List Marginal ulcer Bacterial peritonitis Abdominal pain (Acute) Bowel perforation (Acute) Chemotherapy-induced neuropathy BPH (benign prostatic hyperplasia) GI bleed (Acute) Hematuria (Acute) History of pancreatic cancer (Acute) Obstructive jaundice (Acute) Medical History Pancreatic cancer Dx in 2018, underwent Whipple and chemo (completed in 2019) Surgical History History of arthroscopy of shoulder x 2 History of Whipple procedure Social History Smoking Status: Current every day smoker Tobacco Type: Cigarettes Cigarettes Per Day: 10; Second Hand Exposure: Yes; Do You Dip or Chew Tobacco: No; Hx Alcohol Use: Yes Alcohol type: beer Hx Substance Use: Yes Last Used Substance: Hours (ago) Last Used Substance Other:: 03/16/25 in am Substance Use Type Other:: pen Preferred Language: Maori Communication Ability: Effective Mobile Marketing Specialist Required: No Beliefs That Will Affect Care: None Current Living Situation: Spouse Other Information That Helps Us Care for You: No Feels Safe at Home: Yes Safety Concerns: Feels Safe At This Time Assistive Devices: None Review of Systems Review of Systems: As per HPI, all other systems reviewed and negative Physical Exam Physical Exam: GENERAL: Comfortable, pleasant, underweight, no respiratory distress SKIN: Pallor, warm HEENT: Pale palpebral conjunctivae, no ptosis, dry buccal mucosa NECK : Supple, no tenderness CHEST : CTA, no tenderness HEART : RRR, no obvious murmurs ABDOMEN: Well coaptated incisional wound, no distention, central abdominal tenderness EXTREMITIES : No LE swelling/tenderness, palpable pulses, no other conspicuous deformities noted NEUROLOGIC : Coherent, no facial asymmetry, no other gross focality Results & Data Results & Data Vital Signs (Past 12 Hours) Vital Signs Temp Pulse Resp BP Pulse Ox O2 Del Method 03/16/25 22:58 Room Air 03/16/25 19:59 36 C L 102 H 18 108/71 99 Room Air Laboratory Results Laboratory Results WBC 10.55 K/ul (4.8-10.8) 03/16/25 20: RBC 3.52 M/uL (4.70-6.10) L 03/16/25 20: Hgb 9.6 g/dl (14.0-18.0) L 03/16/25 20: Hct 29.3 % (42.0-52.0) L 03/16/25 20: MCV 83.2 fL (80.0-100.0) 03/16/25 20: MCH 27.3 pg (25.0-34.0) 03/16/25 20: MCHC 32.8 g/dL (32.0-36.0) 03/16/25 20: RDW Std Deviation 53.0 fL (36.4-46.3) H 03/16/25 20: RDW Coeff of [place]pe 17.6 % (11.5-14.5) H 03/16/25 20: Plt Count 184 K/uL (130-400) 03/16/25 20: MPV 10.5 fL (9.4-12.4) 03/16/25 20: Immature Gran % (Auto) 0.6 % 03/16/25 20: Neut % (Auto) 64.9 % 03/16/25 20: Lymph % (Auto) 27.2 % 03/16/25 20: [place] % (Auto) 5.6 % 03/16/25 20: Eos % (Auto) 1.0 % 03/16/25: Baso % (Auto) 0.7 % 03/16/25: Neut # (Auto) 6.85 K/uL (1.40-6.50) H 03/16/25 20: Lymph # (Auto) 2.87 K/uL (1.20-3.40) 03/16/25: [place] # (Auto) 0.59 K/uL (0.11-0.59) 03/16/25: Eos # (Auto) 0.11 K/uL (0.00-0.50) 03/16/25: Baso # (Auto) 0.07 K/uL (0.00-0.20) 03/16/25: Immature Gran # (Auto) 0.06 K/uL (0.01-0.20) 03/16/25 20: Sodium 140 mmol/L (136-145) 03/16/25 20: Potassium 4.0 mmol/L (3.5-5.1) 03/16/25: Chloride 110 mmol/L (98-107) H 03/16/25: Carbon Dioxide 22 mmol/L (21-32) 03/16/25: Anion Gap 8 (3-11) 03/16/25: BUN 8 mg/dl (6-23) 03/16/25: Creatinine 0.87 mg/dl (0.6-1.4) 03/16/25: Est Cr Clr Drug Dosing 79.4 ml/min 03/16/25: eGFR 100.64 03/16/25: BUN/Creatinine Ratio 9.2 (10-20) L 03/16/25: Glucose 146 mg/dl (70-99(Fasting)) H 03/16/25: Calcium 8.3 mg/dl (8.6-10.3) L 09/03/25 20:29 Magnesium 2.1 mg/dl (1.7-2.4) 03/16/25 20: Total Bilirubin 0.3 mg/dl (0.2-1.0) 03/16/25 20:29 AST 41 U/L (13-39) H 03/16/25 20: ALT 45 U/L (7-52) 03/16/25 20: Alkaline Phosphatase 102 U/L (34-104) 03/16/25 20: Total Protein 5.7 gm/dl (6.0-8.3) L 03/16/25 20: Albumin 2.8 gm/dl (3.4-5.0) L 03/16/25 20: Globulin 2.9 gm/dl (2.5-4.0) 03/16/25 20: Albumin/Globulin Ratio 1.0 (0.9-2) 03/16/25 20: Lipase 8 U/L (11-82) L 03/16/25 20:29 Urine Color Yellow 03/16/25 20: Urine Appearance Clear (Clear) 03/16/25 20: Urine pH 6.0 (4.5-7.5) 03/16/25 20:29 Ur Specific [place] <= 1.005 (1.000-1.030) 03/16/25 20: Urine Protein Negative (Negative) 03/16/25 20: Urine Glucose (UA) Negative (Negative) 03/16/25 20: Urine Ketones Negative (Negative) 03/16/25 20: Urine Blood Negative (Negative) 03/16/25 20: Urine Nitrite Negative (Negative) 03/16/25 20:29 Urine Bilirubin Negative (Negative) 03/16/25 20: Urine Urobilinogen Negative (Negative) 03/16/25 20: Ur Leukocyte Esterase Negative (Negative) 03/16/25 20: Urine Comment 03/16/25 20: Ethyl Alcohol mg/dL 125.7 mg/dl (<10.0) H 03/16/25 21:45 Impressions Abdomen/Pelvis CT 03/16/25 20:13 CR Exam(s): CT ABDOMEN + PELVIS With Contrast IV Amt: 93 ml optiray 320 EXAM: CT Abdomen and Pelvis With Intravenous Contrast CLINICAL HISTORY: Reason for exam: abdominal pain, recent abd sx. TECHNIQUE: Axial computed tomography images of the abdomen and pelvis with intravenous contrast. CTDI is 13.42 mGy and DLP is 627.78 mGy-cm. Automated exposure control was utilized for the study. A dose lowering technique was utilized adhering to the principles of ALARA. CONTRAST: Patient received 93 ml optiray 320 of IV contrast COMPARISON: No relevant prior studies available. FINDINGS: Lung bases: Lung bases are clear. No consolidation. ABDOMEN: Liver: Unremarkable. No mass. Gallbladder and bile ducts: Postop changes prior cholecystectomy. No ductal dilation. Pancreas: Unremarkable. No mass. No ductal dilation. Spleen: Unremarkable. No splenomegaly. Adrenals: Unremarkable. No mass. Kidneys and ureters: Unremarkable. No solid mass. No hydronephrosis. Stomach and bowel: See below. PELVIS: Appendix: No findings to suggest acute appendicitis. Bladder: Unremarkable. No mass. Reproductive: Partially calcified prostate. ABDOMEN and PELVIS: Intraperitoneal space: Interval resolution of wall thickening involving numerous loops of small bowel within the left midabdomen. No free air identified on this exam. There is a moderate amount of fluid seen within mildly distended loops of small bowel. No clear transition point is identified on this exam. Findings are consistent with ileus within same extensive wall thickening and inflammatory changes about the stomach.. Bones/joints: No acute fracture. No dislocation. Soft tissues: Unremarkable. Vasculature: Unremarkable. No abdominal aortic aneurysm. Lymph nodes: Unremarkable. No enlarged lymph nodes. IMPRESSION: Findings consistent with a small-bowel ileus There is a tiny locule of extraluminal gas seen within the gallbladder fossa. Correlate with patient's clinical history as extraluminal gas may be a normal finding in the setting of recent surgery. In the absence of such a history, microperforation is suspected. The source of this is not clearly identified on this exam Marked gastritis Communications: Call Doctor Pneumoperitoneum, new or unexpected Electronically signed by: Ismael Way MD 03/16/25 22:31 PM
[2025-03-17] MEDS ORDERED: PROMETHAZINE 6.25 MG/50.25 ML BAG IV PRN (01:01)
[2025-03-17] MEDS: MoRPHine SULFATE 2 MG/ML CARP IV STA (01:14)
[2025-03-17] MEDS ORDERED: GLUCOSE 10 TAB/TUBE PO PRN (03:10)
[2025-03-17] MEDS ORDERED: DEXTROSE 50% 50 ML SYRINGE IV PRN (03:10)
[2025-03-17] MEDS ORDERED: GLUCAGON FOR INJ 1 MG VIAL SQ PRN (03:10)
[2025-03-17] MEDS ORDERED: GLUCOSE 40% GEL 15 GM TUBE PO PRN (03:10)
[2025-03-17] MEDS ORDERED: CARBOHYDRATES FOR HYPOGLYCEMIA PO PRN (03:10)
[2025-03-17] MEDS: MoRPHine SULFATE 2 MG/ML CARP IV PRN (03:16)
[2025-03-17] MEDS: INSULIN ASPART PER UNIT CHARGE SC SCH ×3 (03:19→17:47)
[2025-03-17] MEDS: PIPERACILLIN/TAZOBACTAM 4.5 GM/100 ML BAG IV SCH (03:56)
[2025-03-17 06:19] LABS: Hematocrit (blood only) 27.4 % (42.0-52.0); Hemoglobin 8.9 g/dl (14.0-18.0); Immature Granulocytes # (auto) 0.02 K/uL (0.01-0.20); Immature Granulocytes % (auto) 0.3 %; Mean Corpuscular Hemoglobin 27.3 pg (25.0-34.0); Mean Corpuscular Volume 84.0 fL (80.0-100.0); Platelet Count 160 K/uL (130-400); RDW Standard Deviation 54.2 fL (36.4-46.3); Red Blood Count 3.26 M/uL (4.70-6.10); White Blood Count 7.13 K/ul (4.8-10.8)
[2025-03-17 06:36] LABS: Alanine Aminotransferase 40.0 U/L (7-52); Albumin Globulin Ratio 1.0 (0.9-2); Alkaline Phosphatase 98.0 U/L (34-104); Anion Gap 4.0 (3-11); Bilirubin,Total 0.3 mg/dl (0.2-1.0); Blood Urea Nitrogen 8.0 mg/dl (6-23); Calcium 8.1 mg/dl (8.6-10.3); Carbon Dioxide 27.0 mmol/L (21-32); Chloride 112.0 mmol/L (98-107); Creatinine Clr Calc Pharmacy 100.3 ml/min; Globulin 2.5 gm/dl (2.5-4.0); Glucose 88.0 mg/dl (70-99(Fasting)); Potassium 4.1 mmol/L (3.5-5.1); Sodium 143.0 mmol/L (136-145); Total Protein 5.0 gm/dl (6.0-8.3)
--- NOTE | 2025-03-17 08:22 | Surgery Progress Note ---
Date of Service March 17, 2025 Assessment & Plan (1) Marginal ulcer: Plan: Patient here w/ fatigue, abdominal pain, leg swelling, trouble voiding CT scan overnight showed a tiny locule of air in the gallbladder fossa labs today show WBC 7. vitals are stable will obtain an UGI study today to ensure no leak, if negative will resume carafate and start clears pt says he is slated for iron infusions starting tomorrow continue IV PPI Admission and Anticipated Discharge Date Admission Date: March 17, 2025 Supervising Physician Co-Signing Physician Notes I have seen and examined this patient with the surgical PA. I agree with this plan. Subjective patient feeling okay this AM. tells me what brought him in was feeling very fatigued, leg swelling, and some lower left sided abdominal pain/pressure with troubles voiding. He denies leg swelling this AM. abdominal pain tolerable. Physical Exam Physical Exam: awake,alert, no distress Respiratory: normal respiratory effort Gastrointestinal (Abdomen): Inspection/Auscultation: + abdominal surgical scar (midline incision well healed); abdomen not distended Percussion/Palpation: + abdomen tender (mild discomfort throughout abdomen) and abdomen soft Musculoskeletal: no lower extremity leg swelling bilaterally Results & Data Vital Signs (Past 12 Hours) Vital Signs Temp Pulse Pulse Resp BP BP Pulse Ox 03/17/25 07:54 98.1 F 74 18 156/79 H 98 03/17/25 03:23 03/17/25 03:23 98.2 F 72 18 136/77 98 03/17/25 02:02 64 17 123/79 98 03/17/25 01:00 98.1 F 68 20 116/72 97 03/17/25 00:29 57 L 18 140/81 97 03/17/25 00:00 64 18 120/74 96 03/17/25 00:00 60 03/16/25 22:58 O2 Del Method 03/17/25 07:54 Room Air 03/17/25 03:23 Room Air 03/17/25 03:23 Room Air 03/17/25 02:02 Room Air 03/17/25 01:00 Room Air 03/17/25 00:29 Room Air 03/17/25 00:00 03/17/25 00:00 03/16/25 22:58 Room Air PG Care Time/CCT Total # of Minutes Spent Total Time Spent with Patient: Total time spent is greater than 50% in coordination of care (as documented) at patient's floor/unit and/or counseling patient: Coding Level of Care Code 24787 SUB INP/OBS CARE 08/07MIN Diagnoses Marginal ulcer K28.9
[2025-03-17] MEDS: LACTATED RINGER'S 1,000 ML IV SCH (08:58)
[2025-03-17] MEDS: PANTOprazole 40 MG/10 ML SYR IV SCH (08:58)
[2025-03-17] MEDS: ACETAMINOPHEN 1,000 MG/100 ML VIAL IV PRN (10:28)
--- NOTE | 2025-03-17 12:43 | Fluoroscopy Report ---
[place] upper GI series wo air CLINICAL HISTORY: h/o repair of gastric perf, r/o leak COMPARISON STUDY: CT scan performed the same day FINDINGS: The thermo processor film demonstrates surgical clips within the upper quadrant as well as a linear ra diopaque catheter-like structure within left upper quadrant. The initially administered water-soluble contrast. Extravasation of contrast was identified. The patient was administered thin liquid barium. No esophageal abnormalities were delineated. The pat ient is status post a gastrojejunostomy. The gastrojejunostomy appeared patent. No extravasation was identified. Note is made of coarsened rugal folds. IMPRESSION: 1. Diffuse gastric fold thickening. This could indicate a gastritis. 2. The patient's gastrojejunostomy is patent. 3. No perforation was identified. ACT 112: Negative or not required by law. Electronically signed by: Shahriar Orozco M.D. 03/17/2025 12:42 PM
[2025-03-17] MEDS: TAMSULOSIN HCL 0.4 MG CAP PO SCH (14:00)
[2025-03-17] MEDS: GABAPENTIN 600 MG TAB PO SCH (14:00)
--- NOTE | 2025-03-17 16:10 | Hospitalist Progress Note ---
Date of Service March 17, 2025 Assessment & Plan (1) Abdominal pain: Plan Suspected postop Ileus Gastritis--POA --CT ABD:Findings consistent with a small-bowel ileus. There is a tiny locule of extraluminal gas seen within the gallbladder fossa. Correlate with patient's clinical history as extraluminal gas may be a normal finding in the setting of recent surgery. In the absence of such a history, microperforation is suspected. The source of this is not clearly identified on this exam. Marked gastritis -- Upper GI series:Diffuse gastric fold thickening. This could indicate a gastritis. The patient's gastrojejunostomy is patent. No perforation was identified. 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 Hold p.o. meds. Continue insulin for now. Chronic anemia, scheduled for iron transfusion as outpatient Anxiety/mood disorder, stable ongoing tobacco abuse Alcohol use: Advised to avoid use given severe gastritis DVT Px: SCDs for now CODE STATUS Full code Admission and Anticipated Discharge Date Admission Date: March 17, 2025 Subjective Patient is seen and examined at bedside Had Upper GI series this morning which showed no leak Abdominal pain better Family at bedside Has been having bowel movements per patient Denies any chest pain, dyspnea Review of Systems Review of Systems: All systems reviewed & are unremarkable except as noted in Subjective Physical Exam Physical Exam: Physical Exam: Vitals signs as noted above General Appearance:Thin, frail, no apparent distress Head: normocephalic, Atraumatic Eyes: normal inspection, EOMI Neck: supple, Trachea midline Respiratory/Chest: Normal breath sounds, CTA, No accessory muscle use Cardiovascular: S1, S2, No murmur Abdomen/GI:Soft, + surgical scar, mild tender, non distended, decreased Bowel sounds Extremities/Musculoskeletal:normal inspection, no edema Neurologic/Psych:AAOX3, grossly no focal neurological deficits Skin: normal color, warm Results & Data Results & Data Vital Signs (Past 12 Hours) Vital Signs Temp Pulse Resp BP Pulse Ox O2 Del Method 03/17/25 15:32 37.1 C 57 L 18 148/77 H 99 Room Air 03/17/25 10:20 Room Air 03/17/25 07:54 36.7 C 74 18 156/79 H 98 Room Air Laboratory Results Short CBC 03/16/25 03/17/25 Range/Units 20:29 05:54 WBC 10.55 7.13 (4.8-10.8) K/ul Hgb 9.6 L 8.9 L (14.0-18.0) g/dl Hct 29.3 L 27.4 L (42.0-52.0) % Plt Count 184 160 (130-400) K/uL BMP 03/16/25 03/17/25 20: 05:54 Sodium 140 143 Potassium 4.0 4.1 Chloride 110 H 112 H Carbon Dioxide 22 27 BUN 8 8 Creatinine 0.87 0.73 Glucose 146 H 88 Calcium 8.3 L 8.1 L Liver Function 03/16/25 03/17/25 Range/Units 20:29 05:54 Total Bilirubin 0.3 0.3 (0.2-1.0) mg/dl AST 41 H 45 H (13-39) U/L ALT 45 40 (7-52) U/L Alkaline Phosphatase 102 98 (34-104) U/L Albumin 2.8 L 2.5 L (3.4-5.0) gm/dl Urine 03/16/25 Range/Units 20:29 Urine Color Yellow Urine Appearance Clear (Clear) Urine pH 6.0 (4.5-7.5) Ur Specific [place] <= 1.005 (1.000-1.030) Urine Protein Negative (Negative) Urine Glucose (UA) Negative (Negative)
[2025-03-17] MEDS: SUCRALFATE 1 GM/10 ML UDC PO SCH (17:03)
[2025-03-17] MEDS: PANCREAZE (LIPASE 10,500U) CAP PO SCH (17:03)
[2025-03-17] MEDS: busPIRone 5 MG TAB PO SCH (21:13)
[2025-03-18 04:55] LABS: Hematocrit (blood only) 30.8 % (42.0-52.0); Hemoglobin 10.0 g/dl (14.0-18.0); Mean Corpuscular Hemoglobin 27.5 pg (25.0-34.0); Mean Corpuscular Volume 84.8 fL (80.0-100.0); Platelet Count 148 K/uL (130-400); RDW Standard Deviation 55.2 fL (36.4-46.3); Red Blood Count 3.63 M/uL (4.70-6.10); White Blood Count 6.95 K/ul (4.8-10.8)
[2025-03-18 05:14] LABS: Anion Gap 2.0 (3-11); Blood Urea Nitrogen 10.0 mg/dl (6-23); Calcium 8.1 mg/dl (8.6-10.3); Carbon Dioxide 26.0 mmol/L (21-32); Chloride 111.0 mmol/L (98-107); Creatinine Clr Calc Pharmacy 90.4 ml/min; Glucose 85.0 mg/dl (70-99(Fasting)); Magnesium 2.0 mg/dl (1.7-2.4); Potassium 3.6 mmol/L (3.5-5.1); Sodium 139.0 mmol/L (136-145)
[2025-03-18 07:45] VITALS: RESP 18
--- NOTE | 2025-03-18 09:55 | Surgery Progress Note ---
Date of Service March 18, 2025 Assessment & Plan (1) Abdominal pain: Plan: pt w/ prior history of repair of gastric perf here w/ abdominal pain and fatigue CT showed uyen of air in GB fossa of unknown etiology. UGI obtained yesterday revealed + gastritis without evidence of leak Diet initiated and patient tolerating well without any complaints Needs to continue BID PPI and Carafate for gastritis F/u with dr. stewart for outpatient EGD as previously discussed may be discharged to home from our standpoint; he is willing to receive his iron transfusion before dispo Admission and Anticipated Discharge Date Admission Date: March 17, 2025 Supervising Physician Co-Signing Physician Notes This case has been discussed wiht the surgical PA, I agreed with this plan and the patient is ready for discharge. Subjective Patient feeling well. tolerating diet. no pain/n/v noted. leg swelling & voiding complaints both improved Physical Exam Physical Exam: awake/alert, no distress Gastrointestinal (Abdomen): Inspection/Auscultation: abdomen not distended Percussion/Palpation: abdomen soft; abdomen nontender Results & Data Vital Signs (Past 12 Hours) Vital Signs Temp Pulse Resp BP Pulse Ox O2 Del Method 03/18/25 07:44 98.4 F 73 18 155/77 H 99 Room Air 03/17/25 22:28 98.4 F 53 L 16 149/86 H 99 Room Air PG Care Time/CCT Total # of Minutes Spent Total Time Spent with Patient: Total time spent is greater than 50% in coordination of care (as documented) at patient's floor/unit and/or counseling patient: Coding Level of Care Code 73926 SUB INP/OBS CARE 08/07MIN Diagnoses Abdominal pain R10.9
[2025-03-18] MEDS ORDERED: diphenhydrAMINE 50 MG/ML VIAL ONE (11:13)
[2025-03-18] MEDS ORDERED: FAMOTIDINE 20 MG TAB ONE (11:13)
[2025-03-18] MEDS: IRON DEXTRAN COMPLEX IV SCH ×2 (11:22→12:07)
--- NOTE | 2025-03-18 11:48 | Hospitalist Progress Note ---
Date of Service March 18, 2025 Assessment & Plan (1) Abdominal pain: Plan Gastritis--POA Suspected postop Ileus --CT ABD:Findings consistent with a small-bowel ileus. There is a tiny locule of extraluminal gas seen within the gallbladder fossa. Correlate with patient's clinical history as extraluminal gas may be a normal finding in the setting of recent surgery. In the absence of such a history, microperforation is suspected. The source of this is not clearly identified on this exam. Marked gastritis -- Upper GI series:Diffuse gastric fold thickening. This could indicate a gastritis. The patient's gastrojejunostomy is patent. No perforation was identified. 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 Hold p.o. meds. Continue insulin for now. 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 Anxiety/mood disorder, stable ongoing tobacco abuse Alcohol use: Advised to avoid use given severe gastritis DVT Px: SCDs for now CODE STATUS Full code Disposition Home Admission and Anticipated Discharge Date Admission Date: March 17, 2025 Subjective Patient is seen and examined at bedside States feeling a lot better today No new complaint Tolerating diet Discussed with surgery today Continues to have bowel movements Denies any chest pain, dyspnea, nausea, vomiting, abdominal pain Review of Systems Review of Systems: All systems reviewed & are unremarkable except as noted in Subjective Physical Exam Physical Exam: Physical Exam: Vitals signs as noted above General Appearance:Thin, frail, no apparent distress Head: normocephalic, Atraumatic Eyes: normal inspection, EOMI Neck: supple, Trachea midline Respiratory/Chest: Normal breath sounds, CTA, No accessory muscle use Cardiovascular: S1, S2, No murmur Abdomen/GI:Soft, + surgical scar, mild tender, non distended, decreased Bowel sounds Extremities/Musculoskeletal:normal inspection, no edema Neurologic/Psych:AAOX3, grossly no focal neurological deficits Skin: normal color, warm Results & Data Results & Data Vital Signs (Past 12 Hours) Vital Signs Temp Pulse Resp BP Pulse Ox O2 Del Method 03/18/25 10:56 37.2 C 80 18 145/91 H 100 Room Air 03/18/25 07:44 36.9 C 73 18 155/77 H 99 Room Air Laboratory Results Short CBC 03/18/25 Range/Units 04:12 WBC 6.95 (4.8-10.8) K/ul Hgb 10.0 L (14.0-18.0) g/dl Hct 30.8 L (42.0-52.0) % Plt Count 148 (130-400) K/uL BMP 03/18/25 04:12 Sodium 139 Potassium 3.6 Chloride 111 H Carbon Dioxide 26 BUN 10 Creatinine 0.81 Glucose 85 Calcium 8.1 L
--- NOTE | 2025-03-18 11:59 | Discharge Summary ---
Date of Service March 18, 2025 Admission HPI Per Admitting Provider History obtained from patient and records. Medical history significant for history of pancreatic cancer status post surgery (2018)/chemotherapy, history of gastric perforation status post recent surgery (01/2025), splenic vein thrombosis status post Eliquis, DM 2 on oral medications, BPH, chronic anemia (baseline hemoglobin 9-10), anxiety/mood disorder, ongoing tobacco abuse. Recent [facility] confinement last January, for gastric perforation status post surgery. Patient found to have perforated marginal ulcer at the site of previous gastrojejunostomy from prior Whipple procedure. Gastric perforation/ulcer oversewn with Presley patch placement done followed by washout. Patient doing well on outpatient follow-up with [facility] surgeon 3 weeks ago. Last week, patient noted worsening achy abdominal pain behind abdominal incision. Denies nausea, vomiting. Good BM. No fever, no chills. Patient ingested alcohol today to help with the pain. Patient consulted ER for worsening symptoms. IV Zosyn and PPI administered at the ER. Medical History as above Surgical History : Partial Whipple procedure, gastric ulcer surgery, shoulder surgeries, a port procedure, Family History : Heart disease Personal/Social history : Half pack daily, occasional EtOH intake, retired Admission Exam Per Admitting Provider GENERAL: Comfortable, pleasant, underweight, no respiratory distress SKIN: Pallor, warm HEENT: Pale palpebral conjunctivae, no ptosis, dry buccal mucosa NECK : Supple, no tenderness CHEST : CTA, no tenderness HEART : RRR, no obvious murmurs ABDOMEN: Well coaptated incisional wound, no distention, central abdominal tenderness EXTREMITIES : No LE swelling/tenderness, palpable pulses, no other conspicuous deformities noted NEUROLOGIC : Coherent, no facial asymmetry, no other gross focality Principal Diagnosis Gastritis Suspected postoperative ileus Iron deficiency anemia BPH Discharge Data Allergies Allergy/AdvReac Type Severity Reaction Status Date / Time No Known Allergies Allergy Verified 02/23/25 11:18 Consultations 03/16/25 22:55 ED Decision to Admit Stat 03/17/25 08:11 Consult General Surgery Routine Procedures Performed Laboratory Results WBC 6.95 K/ul (4.8-10.8) 03/18/25 04:12 RBC 3.63 M/uL (4.70-6.10) L 03/18/25 04:12 Hgb 10.0 g/dl (14.0-18.0) L 03/18/25 04:12 Hct 30.8 % (42.0-52.0) L 03/18/25 04:12 MCV 84.8 fL (80.0-100.0) 03/18/25 04:12 MCH 27.5 pg (25.0-34.0) 03/18/25 04:12 MCHC 32.5 g/dL (32.0-36.0) 03/18/25 04:12 RDW Std Deviation 55.2 fL (36.4-46.3) H 03/18/25 04:12 RDW Coeff of [place]pe 18.0 % (11.5-14.5) H 03/18/25 04:12 Plt Count 148 K/uL (130-400) 03/18/25 04:12 MPV 10.7 fL (9.4-12.4) 03/18/25 04:12 Immature Gran % (Auto) 0.3 % 03/17/25 05:54 Neut % (Auto) 60.2 % 03/17/25 05:54 Lymph % (Auto) 29.2 % 03/17/25 05:54 [place] % (Auto) 6.9 % 03/17/25 05:54 Eos % (Auto) 2.4 % 03/17/25 05:54 Baso % (Auto) 1.0 % 03/17/25 05:54 Neut # (Auto) 4.30 K/uL (1.40-6.50) 03/17/25 05:54 Lymph # (Auto) 2.08 K/uL (1.20-3.40) 03/17/25 05:54 [place] # (Auto) 0.49 K/uL (0.11-0.59) 03/17/25 05:54 Eos # (Auto) 0.17 K/uL (0.00-0.50) 03/17/25 05:54 Baso # (Auto) 0.07 K/uL (0.00-0.20) 03/17/25 05:54 Immature Gran # (Auto) 0.02 K/uL (0.01-0.20) 03/17/25 05:54 Sodium 139 mmol/L (136-145) 03/18/25 04:12 Potassium 3.6 mmol/L (3.5-5.1) 03/18/25 04:12 Chloride 111 mmol/L (98-107) H 03/18/25 04:12 Carbon Dioxide 26 mmol/L (21-32) 03/18/25 04:12 Anion Gap 2 (3-11) L 03/18/25 04:12 BUN 10 mg/dl (6-23) 03/18/25 04:12 Creatinine 0.81 mg/dl (0.6-1.4) 03/18/25 04:12 Est Cr Clr Drug Dosing 90.4 ml/min 03/18/25 04:12 eGFR 102.84 03/18/25 04:12 BUN/Creatinine Ratio 12.3 (10-20) 03/18/25 04:12 Glucose 85 mg/dl (70-99(Fasting)) 03/18/25 04:12 POC Glucose 240 mg/dl (70-99) H 03/18/25 11:36 Calcium 8.1 mg/dl (8.6-10.3) L 03/18/25 04:12 Magnesium 2.0 mg/dl (1.7-2.4) 03/18/25 04:12 Total Bilirubin 0.3 mg/dl (0.2-1.0) 03/17/25 05:54 AST 45 U/L (13-39) H 03/17/25 05:54 ALT 40 U/L (7-52) 03/17/25 05:54 Alkaline Phosphatase 98 U/L (34-104) 03/17/25 05:54 Total Protein 5.0 gm/dl (6.0-8.3) L 03/17/25 05:54 Albumin 2.5 gm/dl (3.4-5.0) L 03/17/25 05:54 Globulin 2.5 gm/dl (2.5-4.0) 03/17/25 05:54 Albumin/Globulin Ratio 1.0 (0.9-2) 03/17/25 05:54 Lipase 8 U/L (11-82) L 03/16/25 20:29 Urine Color Yellow 03/16/25 20:29 Urine Appearance Clear (Clear) 03/16/25 20:29 Urine pH 6.0 (4.5-7.5) 03/16/25 20:29 Ur Specific [place] <= 1.005 (1.000-1.030) 03/16/25 20:29 Urine Protein Negative (Negative) 03/16/25 20:29 Urine Glucose (UA) Negative (Negative) 03/16/25 20:29 Urine Ketones Negative (Negative) 03/16/25 20:29 Urine Blood Negative (Negative) 03/16/25 20:29 Urine Nitrite Negative (Negative) 03/16/25 20: Urine Bilirubin Negative (Negative) 03/16/25 20:29 Urine Urobilinogen Negative (Negative) 03/16/25 20:29 Ur Leukocyte Esterase Negative (Negative) 03/16/25 20: Urine Comment 03/16/25 20:29 Ethyl Alcohol mg/dL 125.7 mg/dl (<10.0) H 03/16/25 21:45 Impressions Abdomen/Pelvis CT 03/16/25 20:13 CR Exam(s): CT ABDOMEN + PELVIS With Contrast IV Amt: 93 ml optiray 320 EXAM: CT Abdomen and Pelvis With Intravenous Contrast CLINICAL HISTORY: Reason for exam: abdominal pain, recent abd sx. TECHNIQUE: Axial computed tomography images of the abdomen and pelvis with intravenous contrast. CTDI is 13.42 mGy and DLP is 627.78 mGy-cm. Automated exposure control was utilized for the study. A dose lowering technique was utilized adhering to the principles of ALARA. CONTRAST: Patient received 93 ml optiray 320 of IV contrast COMPARISON: No relevant prior studies available. FINDINGS: Lung bases: Lung bases are clear. No consolidation. ABDOMEN: Liver: Unremarkable. No mass. Gallbladder and bile ducts: Postop changes prior cholecystectomy. No ductal dilation. Pancreas: Unremarkable. No mass. No ductal dilation. Spleen: Unremarkable. No splenomegaly. Adrenals: Unremarkable. No mass. Kidneys and ureters: Unremarkable. No solid mass. No hydronephrosis. Stomach and bowel: See below. PELVIS: Appendix: No findings to suggest acute appendicitis. Bladder: Unremarkable. No mass. Reproductive: Partially calcified prostate. ABDOMEN and PELVIS: Intraperitoneal space: Interval resolution of wall thickening involving numerous loops of small bowel within the left midabdomen. No free air identified on this exam. There is a moderate amount of fluid seen within mildly distended loops of small bowel. No clear transition point is identified on this exam. Findings are consistent with ileus within same extensive wall thickening and inflammatory changes about the stomach.. Bones/joints: No acute fracture. No dislocation. Soft tissues: Unremarkable. Vasculature: Unremarkable. No abdominal aortic aneurysm. Lymph nodes: Unremarkable. No enlarged lymph nodes. IMPRESSION: Findings consistent with a small-bowel ileus There is a tiny locule of extraluminal gas seen within the gallbladder fossa. Correlate with patient's clinical history as extraluminal gas may be a normal finding in the setting of recent surgery. In the absence of such a history, microperforation is suspected. The source of this is not clearly identified on this exam Marked gastritis Communications: Call Doctor Pneumoperitoneum, new or unexpected Electronically signed by: Ismael Way MD 03/16/25 22:31 PM Upper GI Series 03/17/25 08:15 FL upper GI series wo air CLINICAL HISTORY: h/o repair of gastric perf, r/o leak COMPARISON STUDY: CT scan performed the same day FINDINGS: The final inspector shuttle film demonstrates surgical clips within the upper quadrant as well as a linear radiopaque catheter-like structure within left upper quadrant. The initially administered water-soluble contrast. Extravasation of contrast was identified. The patient was administered thin liquid barium. No esophageal abnormalities were delineated. The patient is status post a gastrojejunostomy. The gastrojejunostomy appeared patent. No extravasation was identified. Note is made of coarsened rugal folds. IMPRESSION: 1. Diffuse gastric fold thickening. This could indicate a gastritis. 2. The patient's gastrojejunostomy is patent. 3. No perforation was identified. ACT 112: Negative or not required by law. Electronically signed by: Shahriar Orozco M.D. 03/17/2025 12:42 PM Ordered Studies 03/16/25 20:13 CT abd pelvis IV con only Stat Hospital Course (1) Abdominal pain: Plan Gastritis--POA Suspected postop Ileus --CT ABD:Findings consistent with a small-bowel ileus. There is a tiny locule of extraluminal gas seen within the gallbladder fossa. Correlate with patient's clinical history as extraluminal gas may be a normal finding in the setting of recent surgery. In the absence of such a history, microperforation is suspected. The source of this is not clearly identified on this exam. Marked gastritis -- Upper GI series:Diffuse gastric fold thickening. This could indicate a gastritis. The patient's gastrojejunostomy is patent. No perforation was identified. 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 Hold p.o. meds. Continue insulin for now. 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 Anxiety/mood disorder, stable ongoing tobacco abuse Alcohol use: Advised to avoid use given severe gastritis DVT Px: SCDs for now CODE STATUS Full code Disposition Home Total Time Total Time Spent Total Time Spent (In Minutes): 52 minutes Discharge Plan Discharge Items Patient Disposition: Home - Self-Care Reason For Visit: POSS BOWEL PERF Discharge Diagnosis: Gastritis Suspected postoperative ileus Iron deficiency anemia BPH Activity: Per Instructions section Exercise/Sports: Gradually increase as tolerated Non-emergency contact: Primary Care Provider and Surgeon Call non-emergency contact if: you have any medication questions, your symptoms worsen, your pain is concerning for you and you have a fever Follow-up/Referrals: Suhkjinder Buck MD [Primary Care Provider] - (Date & Time 03/23/2025 8:40 AM Provider: Ira Donnelly PA-C Family Medicine [facility] ) Diet: Regular Addtl Attending Provider Instructions: -- Follow-up with your primary care physician on 03/23/2025 8:40 AM -- Follow-up with your surgeon Dr. Darnell for outpatient upper endoscopy as recommended -- Follow-up with your urologist for further assessment of your prostate as recommended --Continue to take Carafate, Protonix as prescribed until further recommendations from your primary care physician --Quit drinking alcohol as advised Seek immediate medical attention if your symptoms reoccur or worsen Please review medication list provided on discharge for any medication changes as instructed. Please call if you have any questions or problems. You can reach a [facility] hospitalist on duty at [facility] 24 hours a day by calling [phone] Pending Studies at Discharge: No Stand-Alone Forms: My [facility], Smoking Cessation Medications and DC Order Prescriptions: New sucralfate [Carafate] 1 gram tablet 1 g PO ACHS 28 Days Qty: 28 0RF Continued gabapentin 600 mg tablet 600 mg PO TID buspirone 10 mg tablet 10 mg PO BID pioglitazone 30 mg tablet 30 mg PO QAM Creon 36,000-114,000- 180,000 unit Capsule,Delayed Release(Dr/Ec) 1 cap PO AC Qty: 90 0RF Rx Instructions: With meals hydrocodone-acetaminophen 10-325 mg Tablet 1 tab PO DAILY PRN (Reason: pain,severe) pantoprazole 40 mg Tablet,Delayed Release (Dr/Ec) 40 mg PO AMHS Qty: 60 0RF tamsulosin [Flomax] 0.4 mg capsule 0.8 mg PO QAM Qty: 60 0RF Discharge Orders: Discharge Order (Routine); Ordered 03/18/25 Ordered By: Richie Carlos Admission Data Admit Date/Time: 03/17/25 03:12 Attending Provider: Richie Carlos Admit Provider: Melquiades Beck Primary Care Provider: Sukhjinder Buck Other Providers: Edwar Mathew; Crescencio Rueda; Veronika Salazar; Mychal Watts; Karl Hightower; Martha Alexandre; Jojo Archibald; Albino Lui Jr; Tawanda Carr; Albin Roman; Adina Meraz; Melquiades Beck
[2025-03-18] MEDS: SODIUM CHLORIDE 0.9% IV SCH (12:07)
[2025-03-18 13:24] VITALS: TEMP 97.7; O2SAT 100
[2025-03-18 14:12] VITALS: BP 136/77; PULSE 57
== END 2025-03-18 14:40 | disposition home or self-care (01) | DRG 393 ==
LOC: ED 19:52 → 2N 23:46